=== PATIENT | male | born 1975 | race Caucasian/White ===

== ENCOUNTER 2016-11-29 10:40 | Emergency (ER) | payer OTHER ==
[2016-11-29] MEDS ORDERED: Proparacaine 0.5% Ophth Soln 15 ML Bottle EYELF ONE (11:01)
--- NOTE | 2016-11-29 11:04 | EDM.PDOC ---
<Son Banuelos - Last Filed: 11/29/16 11:23> ED HPI GENERAL MEDICAL PROBLEM - General Chief Complaint: Eye Problems Stated Complaint: EYE HURTS Time Seen by Provider: 11/29/16 11:02 Source of Information: Reports: Patient History Limitations: Reports: No Limitations - History of Present Illness INITIAL COMMENTS - FREE TEXT/NARRATIVE: History of present illness: [41-year-old male presenting with complaints of left eye pain. Patient was weaned blacking his yard yesterday and felt something fly up into his eye despite wearing protective glasses. Patient says he felt like it was moving around and now his eye is quite painful. Patient's left eye noted to be erythematous and inflamed.] Review of systems: As per history of present illness and below otherwise all systems reviewed and negative. Past medical history: As per history of present illness and as reviewed below otherwise noncontributory. Surgical history: As per history of present illness and as reviewed below otherwise noncontributory. Social history: No reported history of drug or alcohol abuse. Family history: As per history of present illness and as reviewed below otherwise noncontributory. Physical exam: HEENT: Atraumatic, normocephalic, pupils reactive, negative for conjunctival pallor or scleral icterus, left eye with significant erythema and irritation, mucous membranes moist, throat clear, neck supple, nontender, trachea midline. Lungs: Clear to auscultation, breath sounds equal bilaterally, chest nontender. Heart: S1S2, regular, negative for clicks, rubs, or JVD. Abdomen: Soft, nondistended, nontender. Negative for masses or hepatosplenomegaly. Negative for costovertebral tenderness. Pelvis: Stable nontender. Genitourinary: Deferred. Rectal: Deferred. Extremities: Atraumatic, negative for cords or calf pain. Neurovascular unremarkable. Neuro: Awake, alert, oriented. Cranial nerves II through XII unremarkable. Cerebellum unremarkable. Motor and sensory unremarkable throughout. Exam nonfocal. Procedure note: Proparacaine instilled into left eye with good anesthesia achieved floor seen staining used to visualize 3 abrasions on the conjunctiva region and to on the iris at the 2:00 and the 5:00 region of the eye. Patient tolerated procedure well with minimal discomfort. Diagnostics: [Wood's lamp, floor seen staining] Therapeutics: [Proparacaine] Impression: [#1 Corneal abrasion] Plan: [eye antibiotics drops, follow-up with PCP] Definitive disposition and diagnosis as appropriate pending reevaluation and review of above. Left Eye Pain Score (Numeric/FACES): 4 - Related Data Allergies Allergy/AdvReac Type Severity Reaction Status Date / Time penicillin G Allergy Airway Verified 11/29/16 10:49 Tightness Home Meds: Home Meds Tobramycin 0.3% [Tobramycin 0.3% Ophth Soln] 4 drop EYELF Q4H #1 bottle [Rx] Past Medical History HEENT History: Reports: None Cardiovascular History: Reports: Hypertension Respiratory History: Reports: None Gastrointestinal History: Reports: None Genitourinary History: Reports: None Musculoskeletal History: Reports: None Neurological History: Reports: Seizure Psychiatric History: Reports: None Endocrine/Metabolic History: Reports: None Hematologic History: Reports: None Immunologic History: Reports: None Oncologic (Cancer) History: Reports: None Dermatologic History: Reports: None - Infectious Disease History Infectious Disease History: Reports: Chicken Pox - Past Surgical History Head Surgeries/Procedures: Reports: None GI Surgical History: Reports: Hernia Repair/Other Social & Family History - Family History Family Medical History: Noncontributory - Tobacco Use Smoking Status *Q: Current Every Day Smoker Years of Tobacco use: 26 Packs/Tins Daily: 0.5 - Caffeine Use Caffeine Use: Reports: Coffee, Soda, Tea - Recreational Drug Use Recreational Drug Use: No ED ROS GENERAL - Review of Systems Review Of Systems: See Below (See history of present illness) ED EXAM GENERAL W FULL EYE - Physical Exam Exam: See Below (History of present illness) Course - Vital Signs Last Recorded V/S: Last Vital Signs Temp 35.9 C 11/29/16 10:51 Pulse 73 11/29/16 10:51 Resp 18 11/29/16 10:51 BP 135/86 11/29/16 10:51 Pulse Ox 100 11/29/16 10:51 - Orders/Labs/Meds Meds: Medications Discontinued Medications Generic Name Dose Route Start Last Admin Trade Name Freq PRN Reason Stop Dose Admin Proparacaine HCl 1 ml 11/29/16 11:01 11/29/16 11:06 Proparacaine 0.5% Ophth Soln EYELF 11/29/16 11:02 1 drop ONETIME ONE Administration Departure - Departure Time of Disposition: 11:26 Disposition: Home, Self-Care 01 Condition: Good Clinical Impression: Corneal abrasion - Discharge Information Prescriptions: Tobramycin 0.3% [Tobramycin 0.3% Ophth Soln] 4 drop EYELF Q4H #1 bottle Instructions: Corneal Abrasion, [id number] Referrals: PCP,None [Primary Care Provider] - Forms: ED Department Discharge Additional Instructions: The following information is given to patients seen in the emergency department who are being discharged to home. This information is to outline your options for follow-up care. We provide all patients seen in our emergency department with a follow-up referral. The need for follow-up, as well as the timing and circumstances, are variable depending upon the specifics of your emergency department visit. If you don't have a primary care physician on staff, we will provide you with a referral. We always advise you to contact your personal physician following an emergency department visit to inform them of the circumstance of the visit and for follow-up with them and/or the need for any referrals to a consulting specialist. The emergency department will also refer you to a specialist when appropriate. This referral assures that you have the opportunity for follow-up care with a specialist. All of these measure are taken in an effort to provide you with optimal care, which includes your follow-up. Under all circumstances we always encourage you to contact your private physician who remains a resource for coordinating your care. When calling for follow-up care, please make the office aware that this follow-up is from your recent emergency room visit. If for any reason you are refused follow-up, please contact the [facility] Emergency Department at and asked to speak to the emergency department charge nurse. Take eyedrops as directed Follow-up with PCP in 1-2 days Turned ED as needed as discussed [facility] [address] [place] [id number] <Jaylin Saini - Last Filed: 11/29/16 14:31> ED HPI GENERAL MEDICAL PROBLEM - History of Present Illness INITIAL COMMENTS - FREE TEXT/NARRATIVE: Please correct the history of present illness to state that the patient was working in his yard with a [employer]
[2016-11-29 19:29] VITALS: BP 123/85
== END 2016-11-29 11:38 | disposition home or self-care (01) ==
LOC: MW.ED 10:40
DX: S05.02XA Injury of conjunctiva and corneal abrasion without foreign body, left eye, initial encounter (principal); I10 Essential (primary) hypertension; F17.210 Nicotine dependence, cigarettes, uncomplicated; Z88.0 Allergy status to penicillin; X58.XXXA Exposure to other specified factors, initial encounter
CPT/HCPCS: 99283

== ENCOUNTER 2016-12-10 11:58 | Inpatient (IN) | payer OTHER, MEDICAID ==
[2016-12-10] MEDS ORDERED: Morphine 2 MG/ML Syringe IVPUSH ONE (12:11)
[2016-12-10] MEDS ORDERED: Sodium Chloride 0.9% 2.5 ML Syringe FLUSH PRN (12:11)
[2016-12-10] MEDS ORDERED: Sodium Chloride 0.9% 10 ML Syringe FLUSH PRN (12:11)
[2016-12-10] MEDS ORDERED: Ondansetron 4 MG/2 ML SDV IVPUSH ONE (12:11)
--- NOTE | 2016-12-10 12:15 | EDM.PDOC ---
ED HPI GENERAL MEDICAL PROBLEM - General Chief Complaint: Lower Extremity Injury/Pain Stated Complaint: LT FOOT INJURY Time Seen by Provider: 12/10/16 12:11 Source of Information: Reports: Patient History Limitations: Reports: No Limitations - History of Present Illness INITIAL COMMENTS - FREE TEXT/NARRATIVE: HISTORY AND PHYSICAL: 41-year-old male presenting with injury to his left foot History of Present Illness: []'s previous to coming to the ED patient had been cleaning a big tank with water. Take held mineral oil with guava beans. Patient hit his foot with the high-pressure water tank causing a laceration and edema. Patient has not eaten today, he has had a cup of coffee about 8 or 9:00 this morning Patient is on Keppra last known seizure activity was 2 years ago. Patient has hypertension Review of Systems: As per history of present illness and below otherwise all systems reviewed and negative. Past medical history: As per history of present illness and as reviewed below otherwise noncontributory. Surgical history: As per history of present illness and as reviewed below otherwise noncontributory. Social history: No reported history of drug or alcohol abuse. Family history: As per history of present illness and as reviewed below otherwise noncontributory. Physical exam: Alert and oriented male. Nontoxic in appearance answering questions in full sentences without shortness of breath. HEENT: Atraumatic, normocehpalic, pupils reactive, negative for conjunctival pallor or scleral icterus, mucous membranes moist, throat clear, neck supple, nontender, trachea midline. Lungs: Clear to auscultation, breath sounds equal bilaterally, chest non tender. Heart: S1S2, regular, negative for clicks, rubs, or JVD. Abdomen: Soft, nondistended, nontender. Negative for masses or hepatossplenmegaly. Negative for costovertebral tenderness. Pelvis: Stable nontender. Genitourinary: Deferred. Rectal: Deferred Extremities: Atraumatic, negative for cords or calf pain. Neurovascular unremarkable. Neuro: Awake, alert, oriented. Cranial nerves II through XII unremarkable. Cerebellum unremarkable. Motor and sensory unremarkable throughout. Exam nonfocal. Moderate subcutaneous gas in his tissue. Have notified Dr. Bea Rueda of patient and she will come to examine him. [id number] Dr. Tolentino is here to see the patient, wishes to refer for observation Diagnostics: [Foot x-ray] Therapeutics: [IV access Zofran Morphine] Impression: [Foot injury Laceration] Plan: [Refer for observation] Definitive disposition and diagnosis as appropriate pending reevaluation and review of above. Onset: Today, Sudden left foot and ankle Pain Score (Numeric/FACES): 8 - Related Data Allergies Allergy/AdvReac Type Severity Reaction Status Date / Time penicillin G Allergy Airway Verified 12/10/16 12:06 Tightness Home Meds: Home Meds Tobramycin 0.3% [Tobramycin 0.3% Ophth Soln] 4 drop EYELF Q4H #1 bottle [Rx] Amitriptyline [Elavil] 12/10/16 [History] Metoprolol Succinate 12/10/16 [History] Omeprazole 12/10/16 [History] amLODIPine [Norvasc] 12/10/16 [History] cloNIDine [Catapres] 12/10/16 [History] levETIRAcetam [Keppra] 12/10/16 [History] Past Medical History HEENT History: Reports: None Cardiovascular History: Reports: Hypertension Respiratory History: Reports: None Gastrointestinal History: Reports: None Genitourinary History: Reports: None Musculoskeletal History: Reports: None Neurological History: Reports: Seizure Psychiatric History: Reports: None Endocrine/Metabolic History: Reports: None Hematologic History: Reports: None Immunologic History: Reports: None Oncologic (Cancer) History: Reports: None Dermatologic History: Reports: None - Infectious Disease History Infectious Disease History: Reports: Chicken Pox - Past Surgical History Head Surgeries/Procedures: Reports: None GI Surgical History: Reports: Hernia Repair/Other Social & Family History - Family History Family Medical History: Noncontributory - Tobacco Use Smoking Status *Q: Current Every Day Smoker Years of Tobacco use: 26 Packs/Tins Daily: 0.5 - Caffeine Use Caffeine Use: Reports: Coffee, Soda, Tea - Recreational Drug Use Recreational Drug Use: No Review of Systems - Review of Systems Review Of Systems: ROS reveals no pertinent complaints other than HPI. ED EXAM, GENERAL - Physical Exam Exam: See Below (See dictation) Course - Vital Signs Last Recorded V/S: Last Vital Signs Temp 36.6 C 12/10/16 12:07 Pulse 73 12/10/16 12:53 Resp 16 12/10/16 12:53 BP 119/80 12/10/16 12:53 Pulse Ox 97 12/10/16 12:53 - Orders/Labs/Meds Orders: Active Orders 24 hr Category Date Time Status Patient Status [ADT] Stat ADT 12/10/16 13:47 Ordered Sodium Chloride 0.9% [Saline Flush] Med 12/10/16 12:11 Active 10 ml FLUSH ASDIRECTED PRN Sodium Chloride 0.9% [Saline Flush] Med 12/10/16 12:11 Active 2.5 ml FLUSH ASDIRECTED PRN Saline Lock Insert [OM.PC] Stat Oth 12/10/16 12:11 Ordered Medication Orders Sodium Chloride (Saline Flush) 10 ml FLUSH ASDIRECTED PRN PRN Reason: Keep Vein Open Sodium Chloride (Saline Flush) 2.5 ml FLUSH ASDIRECTED PRN PRN Reason: Keep Vein Open Meds: Medications Generic Name Dose Route Start Last Admin Trade Name Freq PRN Reason Stop Dose Admin Sodium Chloride 10 ml 12/10/16 12:11 Saline Flush FLUSH ASDIRECTED PRN Keep Vein Open Sodium Chloride 2.5 ml 12/10/16 12:11 Saline Flush FLUSH ASDIRECTED PRN Keep Vein Open Discontinued Medications Generic Name Dose Route Start Last Admin Trade Name Freq PRN Reason Stop Dose Admin Morphine Sulfate 2 mg 12/10/16 12:11 12/10/16 12:48 Morphine IVPUSH 12/10/16 12:12 2 mg ONETIME ONE Administration Morphine Sulfate 2 mg 12/10/16 13:21 12/10/16 13:33 Morphine IV 12/10/16 13:22 2 mg ONETIME ONE Administration Ondansetron HCl 4 mg 12/10/16 12:11 12/10/16 12:46 Zofran IVPUSH 12/10/16 12:12 4 mg ONETIME ONE Administration Departure - Departure Time of Disposition: 13:51 Disposition: Refer to Observation Condition: Good Clinical Impression: Injury of foot, left Qualifiers: Encounter type: initial encounter Qualified Code(s): S99.922A - Unspecified injury of left foot, initial encounter - Discharge Information Referrals: PCP,None [Primary Care Provider] - Forms: ED Department Discharge - My Orders Last 24 Hours: My Active Orders 12/10/16 12:11 Sodium Chloride 0.9% [Saline Flush] 10 ml FLUSH ASDIRECTED PRN Sodium Chloride 0.9% [Saline Flush] 2.5 ml FLUSH ASDIRECTED PRN Saline Lock Insert [OM.PC] Stat 12/10/16 13:47 Patient Status [ADT] Stat - Assessment/Plan Last 24 Hours: My Active Orders 12/10/16 12:11 Sodium Chloride 0.9% [Saline Flush] 10 ml FLUSH ASDIRECTED PRN Sodium Chloride 0.9% [Saline Flush] 2.5 ml FLUSH ASDIRECTED PRN Saline Lock Insert [OM.PC] Stat 12/10/16 13:47 Patient Status [ADT] Stat
--- NOTE | 2016-12-10 12:47 | CR ---
EXAMINATION: Left foot HISTORY: Pain COMPARISON: None TECHNIQUE: 2 views FINDINGS: There is a moderate amount of subcutaneous gas noted throughout the left foot extending int o the left ankle. No definite fracture or acute osseous abnormality. Bone mineralization and joint sp aces are grossly preserved. IMPRESSION: 1. Extensive subcutaneous gas noted within the left foot, most prominent around the first digit and m etatarsal, extending into the left ankle.
[2016-12-10] MEDS ORDERED: Morphine 10 MG/ML Syringe IV ONE (13:21)
--- NOTE | 2016-12-10 14:04 | PCM.HP ---
H&P History of Present Illness - General Date of Service: 12/10/16 Admit Problem/Dx: Admission Diagnosis/Problem Admission Diagnosis/Problem Injury of foot Source of Information: Patient History Limitations: Reports: No Limitations - History of Present Illness Initial Comments - Free Text/Narative: 41 y/o male who injured left foot earlier today. States he was using a shaker washer with water irrigation to clean a bin. Ran the shaker washer over his left foot with regular footwear in place and noticied immediate pain. Denies other injuries or previous injury. Presented to ER. XR obtained which shows evidence of sq air, no fracture. Tetanus booster 3 months ago. 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 Improves with: Reports: Immobilization, Rest Worsens with: Reports: Movement Associated Symptoms: Reports: No Other Symptoms left foot and ankle Pain Score (Numeric/FACES): 8 - Related Data Allergies/Adverse Reactions: Allergies Allergy/AdvReac Type Severity Reaction Status Date / Time penicillin G Allergy Airway Verified 12/10/16 12:06 Tightness Home Medications: Home Meds Tobramycin 0.3% [Tobramycin 0.3% Ophth Soln] 4 drop EYELF Q4H #1 bottle [Rx] Amitriptyline [Elavil] 12/10/16 [History] Metoprolol Succinate 12/10/16 [History] Omeprazole 12/10/16 [History] amLODIPine [Norvasc] 12/10/16 [History] cloNIDine [Catapres] 12/10/16 [History] levETIRAcetam [Keppra] 12/10/16 [History] Past Medical History HEENT History: Reports: None Cardiovascular History: Reports: Hypertension Respiratory History: Reports: None Gastrointestinal History: Reports: None Genitourinary History: Reports: None Musculoskeletal History: Reports: None Neurological History: Reports: Seizure Psychiatric History: Reports: None Endocrine/Metabolic History: Reports: None Hematologic History: Reports: None Immunologic History: Reports: None Oncologic (Cancer) History: Reports: None Dermatologic History: Reports: None - Infectious Disease History Infectious Disease History: Reports: Chicken Pox - Past Surgical History Head Surgeries/Procedures: Reports: None GI Surgical History: Reports: Hernia Repair/Other Social & Family History - Family History Family Medical History: Noncontributory - Tobacco Use Smoking Status *Q: Current Every Day Smoker Years of Tobacco use: 26 Packs/Tins Daily: 0.5 - Caffeine Use Caffeine Use: Reports: Coffee, Soda, Tea - Recreational Drug Use Recreational Drug Use: No H&P Review of Systems - Review of Systems: Review Of Systems: See Below General: Reports: No Symptoms HEENT: Reports: No Symptoms Pulmonary: Reports: No Symptoms Cardiovascular: Reports: No Symptoms Gastrointestinal: Reports: No Symptoms Genitourinary: Reports: No Symptoms Musculoskeletal: Reports: No Symptoms Skin: Reports: No Symptoms Psychiatric: Reports: No Symptoms Neurological: Reports: No Symptoms Hematologic/Lymphatic: Reports: No Symptoms Immunologic: Reports: No Symptoms Exam - Exam Exam: See Below - Vital Signs Vital Signs: Last Vital Signs Temp 97.8 F 12/10/16 12:07 Pulse 73 12/10/16 12:53 Resp 16 12/10/16 12:53 BP 119/80 12/10/16 12:53 Pulse Ox 97 12/10/16 12:53 Weight: 90.718 kg - Exam General: Alert, Oriented, 4 HEENT: Conjunctiva Clear, Hearing Intact, Nares Patent, Pupils Equal Neck: Supple, Trachea Midline Lungs: Normal Respiratory Effort Cardiovascular: Regular Rate GI/Abdominal Exam: Soft Psychiatric: Alert, Normal Affect, Normal Mood Physical Exam Comments:: Exam of left foot cavus deformity with claw toes. Exam shows ~1cm laceration over the dorsal/medial aspect of the foot. Small amount of serosanguinous drainage from wound, no active bleeding. Able to move ankle to command. Sq air noted along the medial aspect of the foot. No erythema or induration noted. Decreased sensation throughout foot. DP 2+. - Patient Data Imaging Impressions Last 24 hrs: XR of left foot shows no fracture, evidence of sq air. *Q Meaningful Use (ADM) - VTE *Q VTE Criteria *Q: - Stroke *Q Stroke Criteria *Q: - AMI *Q AMI Criteria *Q: - Problem List (1) Injury of foot, left SNOMED Code(s): 816534075 ICD Code: S99.922A - UNSPECIFIED INJURY OF LEFT FOOT, INITIAL ENCOUNTER Status: Acute Current Visit: Yes Qualifiers: Encounter type: initial encounter Qualified Code(s): S99.922A - Unspecified injury of left foot, initial encounter Problem List Initiated/Reviewed/Updated: Yes Orders Last 24hrs: Medication Orders Sodium Chloride (Saline Flush) 10 ml FLUSH ASDIRECTED PRN PRN Reason: Keep Vein Open Sodium Chloride (Saline Flush) 2.5 ml FLUSH ASDIRECTED PRN PRN Reason: Keep Vein Open Assessment/Plan Comment:: 1. admit for observation 2. saline dressing placed. Will leave wound open to drain (no closure). 3. no surgical intervention at this time. Will need close observation. Will start on broad spectrum Abx. Tetanus up to date. 4. Risks of infection and possible need for future surgical treatment discussed with patient. He agrees with plan.
[2016-12-10] MEDS ORDERED: Ondansetron 4 MG/2 ML SDV IV PRN (14:17)
[2016-12-10] MEDS ORDERED: HYDROmorphone 2 MG/ML Syringe IVPUSH PRN (14:17)
[2016-12-10] MEDS: Lactated Ringers 1,000 ML IV SCH (14:42)
[2016-12-10] MEDS: Ketorolac 30 MG/ML SDV IVPUSH SCH ×2 (14:46→20:30)
[2016-12-10] MEDS: Tobramycin 0.3% Ophth Drops 5 ML Bottle EYELF SCH ×3 (14:50→22:39)
[2016-12-10] MEDS: Piperacillin/Tazobactam 3.375 GM in Sodium Chloride 0.9% 50 ML IV SCH ×2 (15:18→20:45)
[2016-12-10] MEDS: Acetaminophen/HYDROcodone 325-5 MG Tab PO PRN (18:29)
[2016-12-10] MEDS: cloNIDine 0.1 MG Tab PO SCH (21:00)
[2016-12-10] MEDS: levETIRAcetam 500 MG Tab PO SCH (21:49)
[2016-12-10] MEDS: Amitriptyline 25 MG Tab PO SCH (21:49)
[2016-12-10] MEDS: Docusate Sodium 100 MG Cap PO SCH (21:50)
[2016-12-11] MEDS: Lactated Ringers 1,000 ML IV SCH ×2 (01:44→12:27)
[2016-12-11] MEDS: Tobramycin 0.3% Ophth Drops 5 ML Bottle EYELF SCH ×6 (01:44→21:27)
[2016-12-11] MEDS: Ketorolac 30 MG/ML SDV IVPUSH SCH ×4 (02:38→21:07)
[2016-12-11] MEDS: Piperacillin/Tazobactam 3.375 GM in Sodium Chloride 0.9% 50 ML IV SCH ×4 (02:40→21:10)
[2016-12-11] MEDS: Acetaminophen/HYDROcodone 325-5 MG Tab PO PRN ×2 (06:24→21:38)
[2016-12-11] MEDS: levETIRAcetam 500 MG Tab PO SCH ×2 (08:24→21:11)
[2016-12-11] MEDS: Docusate Sodium 100 MG Cap PO SCH ×2 (08:25→21:11)
[2016-12-11] MEDS: amLODIPine 5 MG Tab PO SCH (08:25)
[2016-12-11] MEDS: cloNIDine 0.1 MG Tab PO SCH ×2 (08:25→21:13)
[2016-12-11] MEDS: Omeprazole 20 MG Cap.CR PO SCH (08:26)
--- NOTE | 2016-12-11 08:54 | PCM.PN ---
<Preeti Anna - Last Filed: 12/11/16 10:11> - General Info Date of Service: 12/11/16 Functional Status: Reports: Pain Controlled, Tolerating Diet, Urinating - Review of Systems General: Reports: No Symptoms Pulmonary: Reports: No Symptoms Cardiovascular: Reports: No Symptoms Gastrointestinal: Reports: No Symptoms Genitourinary: Reports: No Symptoms Musculoskeletal: Reports: Foot Pain, Joint Swelling Neurological: Reports: No Symptoms Psychiatric: Reports: No Symptoms - Patient Data Vitals - Most Recent: Last Vital Signs Temp 37.3 C 12/11/16 08:00 Pulse 81 12/11/16 08:00 Resp 19 12/11/16 08:00 BP 127/73 12/11/16 08:25 Pulse Ox 96 12/11/16 08:00 Weight - Most Recent: 86.8 kg I&O - Last 24 Hours: Intake & Output 12/10/16 12/11/16 12/11/16 22:59 06:59 14:59 Intake Total 600 3250 Output Total 800 Balance 600 2450 Lab Results Last 24 Hours: Laboratory Results - last 24 hr 12/11/16 12/11/16 Range/Units 05:15 05:15 WBC 11.85 H (4.0-11.0) K/uL RBC 4.33 L (4.50-5.90) M/uL Hgb 12.0 L (13.0-17.0) g/dL Hct 35.9 L (38.0-50.0) % MCV 82.9 (80.0-98.0) fL MCH 27.7 (27.0-32.0) pg MCHC 33.4 (31.0-37.0) g/dL RDW Std Deviation 42.1 (28.0-62.0) fl RDW Coeff of Jasmina 14 (11.0-15.0) % Plt Count 213 (150-400) K/uL MPV 9.30 (7.40-12.00) fL Neut % (Auto) 72.7 (48.0-80.0) % Lymph % (Auto) 18.9 (16.0-40.0) % Long % (Auto) 5.7 (0.0-15.0) % Eos % (Auto) 2.5 (0.0-7.0) % Baso % (Auto) 0.2 (0.0-1.5) % Neut # (Auto) 8.6 H (1.4-5.7) K/uL Lymph # (Auto) 2.2 (0.6-2.4) K/uL Long # (Auto) 0.7 (0.0-0.8) K/uL Eos # (Auto) 0.3 (0.0-0.7) K/uL Baso # (Auto) 0.0 (0.0-0.1) K/uL Nucleated RBC % 0.0 /100WBC Nucleated RBCs # 0 K/uL Sodium 138 (136-146) mmol/L Potassium 3.8 (3.5-5.1) mmol/L Chloride 105 (98-110) mmol/L Carbon Dioxide 26 (21-31) mmol/L BUN 20 (6.0-23.0) mg/dL Creatinine 1.5 (0.6-1.5) mg/dL Est Cr Clr Drug Dosing 76.68 mL/min Estimated GFR (MDRD) 51.3 ml/min Glucose 124 H (60-110) mg/dL Calcium 8.7 L (8.8-10.8) mg/dL Med Orders - Current: Current Medications Hydrocodone Bitart/Acetaminophen ([place] 325-5 Mg) 1 - 2 tab PO Q4H PRN PRN Reason: Pain Last Admin: 12/11/16 06:24 Dose: 1 tab Amitriptyline HCl (Elavil) 75 mg PO BEDTIME [facility] Last Admin: 12/10/16 21:49 Dose: 75 mg Amlodipine Besylate (Norvasc) 10 mg PO DAILY [facility] Last Admin: 12/11/16 08:25 Dose: 10 mg Clonidine HCl (Catapres) 0.1 mg PO BID [facility] Last Admin: 12/11/16 08:25 Dose: 0.1 mg Docusate Sodium (Colace) 100 mg PO BID [facility] Last Admin: 12/11/16 08:25 Dose: 100 mg Hydromorphone HCl (Dilaudid) 0.5 - 1 mg IVPUSH Q3H PRN PRN Reason: Pain Lactated Ringer's (Ringers, Lactated) 1,000 mls @ 125 mls/hr IV ASDIRECTED [facility] Last Admin: 12/11/16 01:44 Dose: 125 mls/hr Piperacillin Sod/Tazobactam (Sod 3.375 gm/ Sodium Chloride) 50 mls @ 100 mls/ hr IV Q6H [facility] Last Admin: 12/11/16 08:29 Dose: 100 mls/hr Vancomycin HCl 1,500 mg/ (Sodium Chloride) mls @ 333.333 mls/hr IV Q12H [facility] Last Admin: 12/11/16 03:15 Dose: 333.3 mls/hr Ketorolac Tromethamine (Toradol) 30 mg IVPUSH Q6H [facility] Last Admin: 12/11/16 08:26 Dose: 30 mg Levetiracetam (Keppra) 1,000 mg PO BID [facility] Last Admin: 12/11/16 08:24 Dose: 1,000 mg Omeprazole (Omeprazole) 40 mg PO DAILY [facility] Last Admin: 12/11/16 08:26 Dose: 40 mg Ondansetron HCl (Zofran) 4 mg IV Q8HR PRN PRN Reason: NAUSEA/VOMITING Sodium Chloride (Saline Flush) 10 ml FLUSH ASDIRECTED PRN PRN Reason: Keep Vein Open Sodium Chloride (Saline Flush) 2.5 ml FLUSH ASDIRECTED PRN PRN Reason: Keep Vein Open Tobramycin (Tobramycin 0.3% [facility]) 0 ml EYELF Q4H [facility] Last Admin: 12/11/16 06:24 Dose: 1 applic Vancomycin HCl (Pharmacy To Dose - Vancomycin) 1 dose .XX ASDIRECTED [facility] Discontinued Medications Morphine Sulfate (Morphine) 2 mg IVPUSH ONETIME ONE Stop: 12/10/16 12:12 Last Admin: 12/10/16 12:48 Dose: 2 mg Morphine Sulfate (Morphine) 2 mg IV ONETIME ONE Stop: 12/10/16 13:22 Last Admin: 12/10/16 13:33 Dose: 2 mg Ondansetron HCl (Zofran) 4 mg IVPUSH ONETIME ONE Stop: 12/10/16 12:12 Last Admin: 12/10/16 12:46 Dose: 4 mg - Exam General: Alert, Oriented HEENT: Pupils Equal, Pupils Reactive Neck: Trachea Midline Lungs: Normal Respiratory Effort Cardiovascular: Regular Rate Extremities: Other (Left anterior tibialis, extensor hallucis longus and gastrocnemius strength +5/5 bilaterally. Sensation intact. Dorsalis pedis and posterior tibial pulses +2 bilaterally. There is diffuse swelling of the dorsum of left foot. There is a 1 cm linear wound over the dorsum/medial aspect of the foot. This is not actively draining today. The dressing was changed today, dressing was soiled when removed. There is no surrounding erythema or induration. There is a 2 cm circular blister over the dorsal aspect of the foot. ) Wound/Incisions: Dressing Dry and Intact (Dressing changed this AM.) Neurological: No New Focal Deficit Psy/Mental Status: Alert, Normal Affect, Normal Mood - Problem List Review Problem List Initiated/Reviewed/Updated: Yes - Assessment Assessment:: Patient awake in bed this AM. Pain well controlled. Tolerating diet. No complaints today. - Plan Plan:: Continue IV abx. Continue pain management. Encourage ROM of left ankle. If wound and labs continue to improve, will switch to PO abx. Probable D/C home tomorrow. <Bea Rueda - Last Filed: 12/11/16 17:55> - Patient Data Vitals - Most Recent: Last Vital Signs Temp 98.8 F 12/11/16 16:00 Pulse 71 12/11/16 16:00 Resp 22 H 12/11/16 16:00 BP 114/73 12/11/16 16:00 Pulse Ox 92 L 12/11/16 16:00 I&O - Last 24 Hours: Intake & Output 12/11/16 12/11/16 12/11/16 06:59 14:59 22:59 Intake Total 3250 50 1849 Output Total 800 600 Balance 2450 50 1249 Lab Results Last 24 Hours: Laboratory Results - last 24 hr 12/11/16 12/11/16 Range/Units 05:15 05:15 WBC 11.85 H (4.0-11.0) K/uL RBC 4.33 L (4.50-5.90) M/uL Hgb 12.0 L (13.0-17.0) g/dL Hct 35.9 L (38.0-50.0) % MCV 82.9 (80.0-98.0) fL MCH 27.7 (27.0-32.0) pg MCHC 33.4 (31.0-37.0) g/dL RDW Std Deviation 42.1 (28.0-62.0) fl RDW Coeff of Jasmina 14 (11.0-15.0) % Plt Count 213 (150-400) K/uL MPV 9.30 (7.40-12.00) fL Neut % (Auto) 72.7 (48.0-80.0) % Lymph % (Auto) 18.9 (16.0-40.0) % Long % (Auto) 5.7 (0.0-15.0) % Eos % (Auto) 2.5 (0.0-7.0) % Baso % (Auto) 0.2 (0.0-1.5) % Neut # (Auto) 8.6 H (1.4-5.7) K/uL Lymph # (Auto) 2.2 (0.6-2.4) K/uL Long # (Auto) 0.7 (0.0-0.8) K/uL Eos # (Auto) 0.3 (0.0-0.7) K/uL Baso # (Auto) 0.0 (0.0-0.1) K/uL Nucleated RBC % 0.0 /100WBC Nucleated RBCs # 0 K/uL Sodium 138 (136-146) mmol/L Potassium 3.8 (3.5-5.1) mmol/L Chloride 105 (98-110) mmol/L Carbon Dioxide 26 (21-31) mmol/L BUN 20 (6.0-23.0) mg/dL Creatinine 1.5 (0.6-1.5) mg/dL Est Cr Clr Drug Dosing 76.68 mL/min Estimated GFR (MDRD) 51.3 ml/min Glucose 124 H (60-110) mg/dL Calcium 8.7 L (8.8-10.8) mg/dL Med Orders - Current: Current Medications Hydrocodone Bitart/Acetaminophen ([place] 325-5 Mg) 1 - 2 tab PO Q4H PRN PRN Reason: Pain Last Admin: 12/11/16 06:24 Dose: 1 tab Amitriptyline HCl (Elavil) 75 mg PO BEDTIME [facility] Last Admin: 12/10/16 21:49 Dose: 75 mg Amlodipine Besylate (Norvasc) 10 mg PO DAILY [facility] Last Admin: 12/11/16 08:25 Dose: 10 mg Clonidine HCl (Catapres) 0.1 mg PO BID [facility] Last Admin: 12/11/16 08:25 Dose: 0.1 mg Docusate Sodium (Colace) 100 mg PO BID [facility] Last Admin: 12/11/16 08:25 Dose: 100 mg Hydromorphone HCl (Dilaudid) 0.5 - 1 mg IVPUSH Q3H PRN PRN Reason: Pain Piperacillin Sod/Tazobactam (Sod 3.375 gm/ Sodium Chloride) 50 mls @ 100 mls/ hr IV Q6H [facility] Last Admin: 12/11/16 14:18 Dose: 100 mls/hr Vancomycin HCl 1,500 mg/ (Sodium Chloride) mls @ 333.333 mls/hr IV Q12H [facility] Last Admin: 12/11/16 15:23 Dose: 333.3 mls/hr Ketorolac Tromethamine (Toradol) 30 mg IVPUSH Q6H [facility] Last Admin: 12/11/16 14:15 Dose: 30 mg Levetiracetam (Keppra) 1,000 mg PO BID [facility] Last Admin: 12/11/16 08:24 Dose: 1,000 mg Metoprolol Tartrate (Lopressor) 50 mg PO BID [facility] Last Admin: 12/11/16 09:31 Dose: 50 mg Omeprazole (Omeprazole) 40 mg PO DAILY [facility] Last Admin: 12/11/16 08:26 Dose: 40 mg Ondansetron HCl (Zofran) 4 mg IV Q8HR PRN PRN Reason: NAUSEA/VOMITING Sodium Chloride (Saline Flush) 10 ml FLUSH ASDIRECTED PRN PRN Reason: Keep Vein Open Sodium Chloride (Saline Flush) 2.5 ml FLUSH ASDIRECTED PRN PRN Reason: Keep Vein Open Tobramycin (Tobramycin 0.3% [facility]) 0 ml EYELF Q4H [facility] Last Admin: 12/11/16 14:15 Dose: 4 drop Vancomycin HCl (Pharmacy To Dose - Vancomycin) 1 dose .XX ASDIRECTED [facility] Discontinued Medications Lactated Ringer's (Ringers, Lactated) 1,000 mls @ 125 mls/hr IV ASDIRECTED [facility] Last Admin: 12/11/16 12:27 Dose: 125 mls/hr Morphine Sulfate (Morphine) 2 mg IVPUSH ONETIME ONE Stop: 12/10/16 12:12 Last Admin: 12/10/16 12:48 Dose: 2 mg Morphine Sulfate (Morphine) 2 mg IV ONETIME ONE Stop: 12/10/16 13:22 Last Admin: 12/10/16 13:33 Dose: 2 mg Ondansetron HCl (Zofran) 4 mg IVPUSH ONETIME ONE Stop: 12/10/16 12:12 Last Admin: 12/10/16 12:46 Dose: 4 mg - Problem List & Annotations (1) Injury of foot, left SNOMED Code(s): 276976918 Code(s): S99.922A - UNSPECIFIED INJURY OF LEFT FOOT, INITIAL ENCOUNTER Status: Acute Current Visit: Yes Qualifiers: Encounter type: initial encounter Qualified Code(s): S99.922A - Unspecified injury of left foot, initial encounter - My Orders Last 24 Hours: My Active Orders 12/10/16 21:00 Amitriptyline [Elavil] 75 mg PO BEDTIME Docusate Sodium [Colace] 100 mg PO BID cloNIDine [Catapres] 0.1 mg PO BID levETIRAcetam [Keppra] 1,000 mg PO BID 12/11/16 09:00 Omeprazole 40 mg PO DAILY amLODIPine [Norvasc] 10 mg PO DAILY 12/11/16 09:15 Metoprolol Tartrate [Lopressor] 50 mg PO BID 12/11/16 17:51 Sodium Chloride 0.9% [Saline Flush] 10 ml FLUSH ASDIRECTED PRN Sodium Chloride 0.9% [Saline Flush] 2.5 ml FLUSH ASDIRECTED PRN Convert IV to Saline Lock [OM.PC] Routine 12/12/16 05:11 BASIC METABOLIC PANEL,BMP [CHEM] AM 12/12/16 06:00 CBC WITH AUTO DIFF [HEME] Routine 12/12/16 15:00 VANCOMYCIN TROUGH [CHEM] Routine 12/17/16 15:00 FLU Vacc [id number] 36mos UP/PF [Fluarix Quad [id number]] 60 mcg IM ONETIME ONE - Plan Plan:: 1800 Patient seen and examined. Patient states pain well controlled. Has been OOB to bathroom. VSS, afeb Exam of left foot shows laceration to be unchanged. No erythema or induration. Swelling in foot improved. Small amount of serosanguinous drainage on dressing. Small clear fluid filled blister near laceration site. minimal pain with ankle and toe ROM. No pain with PROM. Foot compartments soft. Sensation slightly decreased throughout foot. DP 2+. WBC=11.85 1. dressing changed today 2. continue elevation 3. repeat CBC in am 4. continue Zosyn/Vanco 5. if patient continues to improve, plan to change to po antibiotics tomorrow and discharge home.
[2016-12-11] MEDS: Metoprolol Tartrate 50 MG Tab PO SCH ×2 (09:31→21:14)
[2016-12-11] MEDS ORDERED: Sodium Chloride 0.9% 10 ML Syringe FLUSH PRN (17:51)
[2016-12-11] MEDS ORDERED: Sodium Chloride 0.9% 2.5 ML Syringe FLUSH PRN (17:51)
[2016-12-11] MEDS: Amitriptyline 25 MG Tab PO SCH (21:10)
[2016-12-11] MEDS ORDERED: Acetaminophen 500 MG Tab PO PRN (22:06)
[2016-12-12] MEDS: Ketorolac 30 MG/ML SDV IVPUSH SCH ×4 (02:58→21:28)
[2016-12-12] MEDS: Piperacillin/Tazobactam 3.375 GM in Sodium Chloride 0.9% 50 ML IV SCH ×4 (02:59→20:41)
[2016-12-12] MEDS: Tobramycin 0.3% Ophth Drops 5 ML Bottle EYELF SCH ×6 (03:07→23:49)
[2016-12-12] MEDS: Metoprolol Tartrate 50 MG Tab PO SCH ×3 (08:11→22:26)
[2016-12-12] MEDS: Docusate Sodium 100 MG Cap PO SCH ×4 (08:11→22:26)
[2016-12-12] MEDS: Omeprazole 20 MG Cap.CR PO SCH (08:11)
[2016-12-12] MEDS: levETIRAcetam 500 MG Tab PO SCH ×2 (08:11→20:06)
[2016-12-12] MEDS: amLODIPine 5 MG Tab PO SCH (08:11)
[2016-12-12] MEDS: cloNIDine 0.1 MG Tab PO SCH ×2 (08:11→20:05)
--- NOTE | 2016-12-12 08:30 | PCM.PN ---
<Preeti Anna - Last Filed: 12/12/16 08:30> - General Info Date of Service: 12/12/16 Functional Status: Reports: Pain Controlled, Tolerating Diet, Ambulating, Urinating - Review of Systems General: Reports: No Symptoms Pulmonary: Reports: No Symptoms Cardiovascular: Reports: No Symptoms Gastrointestinal: Reports: No Symptoms Genitourinary: Reports: No Symptoms Musculoskeletal: Reports: Foot Pain, Joint Pain, Joint Swelling Neurological: Reports: No Symptoms Psychiatric: Reports: No Symptoms - Patient Data Vitals - Most Recent: Last Vital Signs Temp 37.0 C 12/12/16 04:00 Pulse 72 12/12/16 08:11 Resp 16 12/12/16 04:00 BP 133/85 12/12/16 08:11 Pulse Ox 94 L 12/12/16 04:00 Weight - Most Recent: 86.8 kg I&O - Last 24 Hours: Intake & Output 12/11/16 12/12/16 12/12/16 22:59 06:59 14:59 Intake Total 1899 650 Output Total 600 1030 Balance 1299 -380 Lab Results Last 24 Hours: Laboratory Results - last 24 hr 12/12/16 12/12/16 Range/Units 04:16 04:16 WBC 14.58 H (4.0-11.0) K/uL RBC 4.05 L (4.50-5.90) M/uL Hgb 11.2 L (13.0-17.0) g/dL Hct 33.6 L (38.0-50.0) % MCV 83.0 (80.0-98.0) fL MCH 27.7 (27.0-32.0) pg MCHC 33.3 (31.0-37.0) g/dL RDW Std Deviation 41.4 (28.0-62.0) fl RDW Coeff of Jasmina 14 (11.0-15.0) % Plt Count 186 (150-400) K/uL MPV 9.80 (7.40-12.00) fL Add Manual Diff YES Neutrophils % (Manual) 78 (48.0-80.0) % Lymphocytes % (Manual) 15 L (16.0-40.0) % Monocytes % (Manual) 3 (0.0-15.0) % Eosinophils % (Manual) 4 (0.0-7.0) % Nucleated RBC % 0.0 /100WBC Absolute Seg Neuts 11.4 Lymphocytes # (Manual) 2.2 Monocytes # (Manual) 0.4 Eosinophils # (Manual) 0.6 Nucleated RBCs # 0 K/uL Sodium 137 (136-146) mmol/L Potassium 4.1 (3.5-5.1) mmol/L Chloride 105 (98-110) mmol/L Carbon Dioxide 24 (21-31) mmol/L BUN 19 (6.0-23.0) mg/dL Creatinine 1.4 (0.6-1.5) mg/dL Est Cr Clr Drug Dosing 82.15 mL/min Estimated GFR (MDRD) 55.6 ml/min Glucose 105 (60-110) mg/dL Calcium 8.8 (8.8-10.8) mg/dL Med Orders - Current: Current Medications Acetaminophen (Tylenol Extra Strength) 1,000 mg PO Q6H PRN PRN Reason: fever 101.3F Hydrocodone Bitart/Acetaminophen ([place] 325-5 Mg) 1 - 2 tab PO Q4H PRN PRN Reason: Pain Last Admin: 12/11/16 21:38 Dose: 2 tab Amitriptyline HCl (Elavil) 75 mg PO BEDTIME [facility] Last Admin: 12/11/16 21:10 Dose: 75 mg Amlodipine Besylate (Norvasc) 10 mg PO DAILY [facility] Last Admin: 12/12/16 08:11 Dose: 10 mg Clonidine HCl (Catapres) 0.1 mg PO BID [facility] Last Admin: 12/12/16 08:11 Dose: 0.1 mg Docusate Sodium (Colace) 100 mg PO BID [facility] Last Admin: 12/12/16 08:21 Dose: Not Given Hydromorphone HCl (Dilaudid) 0.5 - 1 mg IVPUSH Q3H PRN PRN Reason: Pain Piperacillin Sod/Tazobactam (Sod 3.375 gm/ Sodium Chloride) 50 mls @ 100 mls/ hr IV Q6H [facility] Last Admin: 12/12/16 08:12 Dose: 100 mls/hr Vancomycin HCl 1,500 mg/ (Sodium Chloride) mls @ 333.333 mls/hr IV Q12H [facility] Last Admin: 12/12/16 03:51 Dose: 333.3 mls/hr Ketorolac Tromethamine (Toradol) 30 mg IVPUSH Q6H [facility] Last Admin: 12/12/16 08:11 Dose: 30 mg Levetiracetam (Keppra) 1,000 mg PO BID [facility] Last Admin: 12/12/16 08:11 Dose: 1,000 mg Metoprolol Tartrate (Lopressor) 50 mg PO BID [facility] Last Admin: 12/12/16 08:11 Dose: 50 mg Omeprazole (Omeprazole) 40 mg PO DAILY [facility] Last Admin: 12/12/16 08:11 Dose: 40 mg Ondansetron HCl (Zofran) 4 mg IV Q8HR PRN PRN Reason: NAUSEA/VOMITING Sodium Chloride (Saline Flush) 10 ml FLUSH ASDIRECTED PRN PRN Reason: Keep Vein Open Sodium Chloride (Saline Flush) 2.5 ml FLUSH ASDIRECTED PRN PRN Reason: Keep Vein Open Sodium Chloride (Saline Flush) 10 ml FLUSH ASDIRECTED PRN PRN Reason: Keep Vein Open Sodium Chloride (Saline Flush) 2.5 ml FLUSH ASDIRECTED PRN PRN Reason: Keep Vein Open Tobramycin (Tobramycin 0.3% [facility]) 0 ml EYELF Q4H [facility] Last Admin: 12/12/16 06:37 Dose: 4 drop Vancomycin HCl (Pharmacy To Dose - Vancomycin) 1 dose .XX ASDIRECTED [facility] Discontinued Medications Lactated Ringer's (Ringers, Lactated) 1,000 mls @ 125 mls/hr IV ASDIRECTED [facility] Last Admin: 12/11/16 12:27 Dose: 125 mls/hr Morphine Sulfate (Morphine) 2 mg IVPUSH ONETIME ONE Stop: 12/10/16 12:12 Last Admin: 12/10/16 12:48 Dose: 2 mg Morphine Sulfate (Morphine) 2 mg IV ONETIME ONE Stop: 12/10/16 13:22 Last Admin: 12/10/16 13:33 Dose: 2 mg Ondansetron HCl (Zofran) 4 mg IVPUSH ONETIME ONE Stop: 12/10/16 12:12 Last Admin: 12/10/16 12:46 Dose: 4 mg - Exam General: Alert, Oriented HEENT: Pupils Equal, Pupils Reactive Neck: Trachea Midline Lungs: Normal Respiratory Effort Cardiovascular: Regular Rate Extremities: Other (Left anterior tibialis, extensor hallucis longus and gastrocnemius strength +5/5 bilaterally. Sensation intact. Dorsalis pedis and posterior tibial pulses +2 bilaterally. There is diffuse swelling of the dorsum of left foot. There is a 1 cm linear wound over the dorsum/medial aspect of the foot. This is not actively draining today. The dressing was changed today, dressing was lightly soilded when removed. There is no surrounding erythema or induration. There is a 2 cm circular blister over the dorsal aspect of the foot. ) Wound/Incisions: Dressing Dry and Intact, Drainage. No: Erythema Neurological: No New Focal Deficit Psy/Mental Status: Alert, Normal Affect, Normal Mood - Problem List Review Problem List Initiated/Reviewed/Updated: Yes - Assessment Assessment:: Patient awake in bed this AM. Pain well controlled. Tolerating diet. No complaints today. - Plan Plan:: Dressing changed this AM. Will plan to switch patient to PO abx and D/C home today. <Bea Rueda - Last Filed: 12/12/16 12:51> - Patient Data Vitals - Most Recent: Last Vital Signs Temp 98.6 F 12/12/16 08:00 Pulse 72 12/12/16 08:11 Resp 16 12/12/16 08:00 BP 133/85 12/12/16 08:11 Pulse Ox 95 12/12/16 08:00 Med Orders - Current: Current Medications Acetaminophen (Tylenol Extra Strength) 1,000 mg PO Q6H PRN PRN Reason: fever 101.3F Hydrocodone Bitart/Acetaminophen ([place] 325-5 Mg) 1 - 2 tab PO Q4H PRN PRN Reason: Pain Last Admin: 12/11/16 21:38 Dose: 2 tab Amitriptyline HCl (Elavil) 75 mg PO BEDTIME [facility] Last Admin: 12/11/16 21:10 Dose: 75 mg Amlodipine Besylate (Norvasc) 10 mg PO DAILY [facility] Last Admin: 12/12/16 08:11 Dose: 10 mg Clonidine HCl (Catapres) 0.1 mg PO BID [facility] Last Admin: 12/12/16 08:11 Dose: 0.1 mg Docusate Sodium (Colace) 100 mg PO BID [facility] Last Admin: 12/12/16 08:21 Dose: Not Given Hydromorphone HCl (Dilaudid) 0.5 - 1 mg IVPUSH Q3H PRN PRN Reason: Pain Piperacillin Sod/Tazobactam (Sod 3.375 gm/ Sodium Chloride) 50 mls @ 100 mls/ hr IV Q6H [facility] Last Admin: 12/12/16 08:12 Dose: 100 mls/hr Vancomycin HCl 1,500 mg/ (Sodium Chloride) mls @ 333.333 mls/hr IV Q12H [facility] Last Admin: 12/12/16 03:51 Dose: 333.3 mls/hr Ketorolac Tromethamine (Toradol) 30 mg IVPUSH Q6H [facility] Last Admin: 12/12/16 08:11 Dose: 30 mg Levetiracetam (Keppra) 1,000 mg PO BID [facility] Last Admin: 12/12/16 08:11 Dose: 1,000 mg Metoprolol Tartrate (Lopressor) 50 mg PO BID [facility] Last Admin: 12/12/16 08:11 Dose: 50 mg Omeprazole (Omeprazole) 40 mg PO DAILY [facility] Last Admin: 12/12/16 08:11 Dose: 40 mg Ondansetron HCl (Zofran) 4 mg IV Q8HR PRN PRN Reason: NAUSEA/VOMITING Sodium Chloride (Saline Flush) 10 ml FLUSH ASDIRECTED PRN PRN Reason: Keep Vein Open Sodium Chloride (Saline Flush) 2.5 ml FLUSH ASDIRECTED PRN PRN Reason: Keep Vein Open Sodium Chloride (Saline Flush) 10 ml FLUSH ASDIRECTED PRN PRN Reason: Keep Vein Open Sodium Chloride (Saline Flush) 2.5 ml FLUSH ASDIRECTED PRN PRN Reason: Keep Vein Open Tobramycin (Tobramycin 0.3% [facility]) 0 ml EYELF Q4H [facility] Last Admin: 12/12/16 10:41 Dose: 4 drop Vancomycin HCl (Pharmacy To Dose - Vancomycin) 1 dose .XX ASDIRECTED [facility] Discontinued Medications Lactated Ringer's (Ringers, Lactated) 1,000 mls @ 125 mls/hr IV ASDIRECTED [facility] Last Admin: 12/11/16 12:27 Dose: 125 mls/hr Morphine Sulfate (Morphine) 2 mg IVPUSH ONETIME ONE Stop: 12/10/16 12:12 Last Admin: 12/10/16 12:48 Dose: 2 mg Morphine Sulfate (Morphine) 2 mg IV ONETIME ONE Stop: 12/10/16 13:22 Last Admin: 12/10/16 13:33 Dose: 2 mg Ondansetron HCl (Zofran) 4 mg IVPUSH ONETIME ONE Stop: 12/10/16 12:12 Last Admin: 12/10/16 12:46 Dose: 4 mg - Problem List & Annotations (1) Injury of foot, left SNOMED Code(s): 388019315 Code(s): S99.922A - UNSPECIFIED INJURY OF LEFT FOOT, INITIAL ENCOUNTER Status: Acute Current Visit: Yes Qualifiers: Encounter type: initial encounter Qualified Code(s): S99.922A - Unspecified injury of left foot, initial encounter - Plan Plan:: 1245 Patient seen and examined at 0830. Doing well. No new complaints. Did have fever overnight. IS encouraged. Patient denies cough, SOB, CP, dysuria. WBC remains elevated today at 14,000, up from 11,000. States he has h/o elevated labs. We will obtain clinic records from [place] to determine what this means. Foot examined earlier today. Drainage decreased, no evidence of infection. Will continue Vanco and zosyn. Will keep overnight to watch elevated WBC. May need infectious workup if WBC remains elevated. BC x 2 if fever.
[2016-12-12] MEDS: Amitriptyline 25 MG Tab PO SCH (20:05)
[2016-12-13] MEDS: Tobramycin 0.3% Ophth Drops 5 ML Bottle EYELF SCH ×3 (02:14→10:35)
[2016-12-13] MEDS: Ketorolac 30 MG/ML SDV IVPUSH SCH ×2 (02:16→08:08)
[2016-12-13] MEDS: Piperacillin/Tazobactam 3.375 GM in Sodium Chloride 0.9% 50 ML IV SCH ×2 (02:21→08:09)
[2016-12-13] MEDS: Omeprazole 20 MG Cap.CR PO SCH (09:00)
[2016-12-13] MEDS: Docusate Sodium 100 MG Cap PO SCH (09:03)
[2016-12-13] MEDS: Metoprolol Tartrate 50 MG Tab PO SCH (09:04)
[2016-12-13] MEDS: amLODIPine 5 MG Tab PO SCH (09:09)
[2016-12-13] MEDS: cloNIDine 0.1 MG Tab PO SCH (09:09)
[2016-12-13] MEDS: levETIRAcetam 500 MG Tab PO SCH (09:10)
--- NOTE | 2016-12-13 09:15 | PCM.PN ---
<Preeti Anna - Last Filed: 12/13/16 09:28> - General Info Date of Service: 12/13/16 Functional Status: Reports: Pain Controlled, Tolerating Diet, Ambulating, Urinating - Review of Systems General: Reports: No Symptoms Pulmonary: Reports: No Symptoms Cardiovascular: Reports: No Symptoms Gastrointestinal: Reports: No Symptoms Musculoskeletal: Reports: Leg Pain, Joint Swelling Neurological: Reports: No Symptoms Psychiatric: Reports: No Symptoms - Patient Data Vitals - Most Recent: Last Vital Signs Temp 36.8 C 12/13/16 08:00 Pulse 74 12/13/16 09:04 Resp 12 12/13/16 08:00 BP 132/77 12/13/16 09:09 Pulse Ox 96 12/13/16 08:00 Weight - Most Recent: 86.8 kg I&O - Last 24 Hours: Intake & Output 12/12/16 12/13/16 12/13/16 22:59 06:59 14:59 Intake Total 900 1450 Output Total 700 1025 Balance 200 425 Lab Results Last 24 Hours: Laboratory Results - last 24 hr 12/12/16 12/13/16 Range/Units 15:06 04:28 WBC 12.24 H (4.0-11.0) K/uL RBC 3.81 L (4.50-5.90) M/uL Hgb 10.7 L (13.0-17.0) g/dL Hct 31.6 L (38.0-50.0) % MCV 82.9 (80.0-98.0) fL MCH 28.1 (27.0-32.0) pg MCHC 33.9 (31.0-37.0) g/dL RDW Std Deviation 41.4 (28.0-62.0) fl RDW Coeff of Jasmina 14 (11.0-15.0) % Plt Count 186 (150-400) K/uL MPV 9.90 (7.40-12.00) fL Neut % (Auto) 69.3 (48.0-80.0) % Lymph % (Auto) 19.1 (16.0-40.0) % [place] % (Auto) 8.5 (0.0-15.0) % Eos % (Auto) 2.9 (0.0-7.0) % Baso % (Auto) 0.2 (0.0-1.5) % Neut # (Auto) 8.5 H (1.4-5.7) K/uL Lymph # (Auto) 2.3 (0.6-2.4) K/uL [place] # (Auto) 1.0 H (0.0-0.8) K/uL Eos # (Auto) 0.4 (0.0-0.7) K/uL Baso # (Auto) 0.0 (0.0-0.1) K/uL Nucleated RBC % 0.0 /100WBC Nucleated RBCs # 0 K/uL Vancomycin Trough 22.9 H (5-15) ug/mL Med Orders - Current: Current Medications Acetaminophen (Tylenol Extra Strength) 1,000 mg PO Q6H PRN PRN Reason: fever 101.3F Hydrocodone Bitart/Acetaminophen ([place] 325-5 Mg) 1 - 2 tab PO Q4H PRN PRN Reason: Pain Last Admin: 12/11/16 21:38 Dose: 2 tab Amitriptyline HCl (Elavil) 75 mg PO BEDTIME [facility] Last Admin: 12/12/16 20:05 Dose: 75 mg Amlodipine Besylate (Norvasc) 10 mg PO DAILY [facility] Last Admin: 12/13/16 09:09 Dose: 10 mg Clonidine HCl (Catapres) 0.1 mg PO BID [facility] Last Admin: 12/13/16 09:09 Dose: 0.1 mg Docusate Sodium (Colace) 100 mg PO BID [facility] Last Admin: 12/13/16 09:03 Dose: 100 mg Hydromorphone HCl (Dilaudid) 0.5 - 1 mg IVPUSH Q3H PRN PRN Reason: Pain Piperacillin Sod/Tazobactam (Sod 3.375 gm/ Sodium Chloride) 50 mls @ 100 mls/ hr IV Q6H [facility] Last Admin: 12/13/16 08:09 Dose: 100 mls/hr Vancomycin HCl 1,500 mg/ (Sodium Chloride) 500 mls @ 333.333 mls/hr IV Q18H [facility] Last Infusion: 12/12/16 23:50 Dose: Infused Ketorolac Tromethamine (Toradol) 30 mg IVPUSH Q6H [facility] Last Admin: 12/13/16 08:08 Dose: 30 mg Levetiracetam (Keppra) 1,000 mg PO BID [facility] Last Admin: 12/13/16 09:10 Dose: 1,000 mg Metoprolol Tartrate (Lopressor) 50 mg PO BID [facility] Last Admin: 12/13/16 09:04 Dose: 50 mg Omeprazole (Omeprazole) 40 mg PO DAILY [facility] Last Admin: 12/13/16 09:00 Dose: 40 mg Ondansetron HCl (Zofran) 4 mg IV Q8HR PRN PRN Reason: NAUSEA/VOMITING Sodium Chloride (Saline Flush) 10 ml FLUSH ASDIRECTED PRN PRN Reason: Keep Vein Open Sodium Chloride (Saline Flush) 2.5 ml FLUSH ASDIRECTED PRN PRN Reason: Keep Vein Open Sodium Chloride (Saline Flush) 10 ml FLUSH ASDIRECTED PRN PRN Reason: Keep Vein Open Sodium Chloride (Saline Flush) 2.5 ml FLUSH ASDIRECTED PRN PRN Reason: Keep Vein Open Tobramycin (Tobramycin 0.3% [facility]) 0 ml EYELF Q4H [facility] Last Admin: 12/13/16 06:18 Dose: 4 drop Vancomycin HCl (Pharmacy To Dose - Vancomycin) 1 dose .XX ASDIRECTED [facility] Discontinued Medications Lactated Ringer's (Ringers, Lactated) 1,000 mls @ 125 mls/hr IV ASDIRECTED [facility] Last Admin: 12/11/16 12:27 Dose: 125 mls/hr Vancomycin HCl 1,500 mg/ (Sodium Chloride) mls @ 333.333 mls/hr IV Q12H [facility] Last Admin: 12/12/16 15:57 Dose: Not Given Morphine Sulfate (Morphine) 2 mg IVPUSH ONETIME ONE Stop: 12/10/16 12:12 Last Admin: 12/10/16 12:48 Dose: 2 mg Morphine Sulfate (Morphine) 2 mg IV ONETIME ONE Stop: 12/10/16 13:22 Last Admin: 12/10/16 13:33 Dose: 2 mg Ondansetron HCl (Zofran) 4 mg IVPUSH ONETIME ONE Stop: 12/10/16 12:12 Last Admin: 12/10/16 12:46 Dose: 4 mg - Exam General: Alert, Oriented HEENT: Pupils Equal, Pupils Reactive Neck: Trachea Midline Lungs: Normal Respiratory Effort Cardiovascular: Regular Rate Extremities: Other (Left anterior tibialis, extensor hallucis longus and gastrocnemius strength +5/5 bilaterally. Sensation intact. Dorsalis pedis and posterior tibial pulses +2 bilaterally. There is diffuse swelling of the dorsum of left foot. There is a 1 cm linear wound over the dorsum/medial aspect of the foot. This is not actively draining today. The dressing was changed today, dressing was lightly soilded when removed. There is no surrounding erythema or induration. There is a 2 cm circular blister over the dorsal aspect of the foot. ) Wound/Incisions: Dressing Dry and Intact (Dressing changed this AM.) Neurological: No New Focal Deficit Psy/Mental Status: Alert, Normal Affect, Normal Mood - Problem List Review Problem List Initiated/Reviewed/Updated: Yes - Assessment Assessment:: Patient awake in bed this AM. Pain well controlled. Tolerating diet. No complaints today. Denies fever, chills, cough. - Plan Plan:: WBC decreased from 14,000 to 12,000 today. Continue IV abx and pain management. D/C home this afternoon. Will continue Levaquin 750 mg PO daily for 7 days. Followup in the ortho clinic Sunday 12/17. <Bea Rueda R - Last Filed: 12/13/16 10:25> - Patient Data Vitals - Most Recent: Last Vital Signs Temp 98.3 F 12/13/16 08:00 Pulse 74 12/13/16 09:04 Resp 12 12/13/16 08:00 BP 132/77 12/13/16 09:09 Pulse Ox 96 12/13/16 08:00 I&O - Last 24 Hours: Intake & Output 12/12/16 12/13/16 12/13/16 22:59 06:59 14:59 Intake Total 900 1450 Output Total 700 1025 Balance 200 425 Lab Results Last 24 Hours: Laboratory Results - last 24 hr 12/12/16 12/13/16 Range/Units 15:06 04:28 WBC 12.24 H (4.0-11.0) K/uL RBC 3.81 L (4.50-5.90) M/uL Hgb 10.7 L (13.0-17.0) g/dL Hct 31.6 L (38.0-50.0) % MCV 82.9 (80.0-98.0) fL MCH 28.1 (27.0-32.0) pg MCHC 33.9 (31.0-37.0) g/dL RDW Std Deviation 41.4 (28.0-62.0) fl RDW Coeff of Jasmina 14 (11.0-15.0) % Plt Count 186 (150-400) K/uL MPV 9.90 (7.40-12.00) fL Neut % (Auto) 69.3 (48.0-80.0) % Lymph % (Auto) 19.1 (16.0-40.0) % [place] % (Auto) 8.5 (0.0-15.0) % Eos % (Auto) 2.9 (0.0-7.0) % Baso % (Auto) 0.2 (0.0-1.5) % Neut # (Auto) 8.5 H (1.4-5.7) K/uL Lymph # (Auto) 2.3 (0.6-2.4) K/uL [place] # (Auto) 1.0 H (0.0-0.8) K/uL Eos # (Auto) 0.4 (0.0-0.7) K/uL Baso # (Auto) 0.0 (0.0-0.1) K/uL Nucleated RBC % 0.0 /100WBC Nucleated RBCs # 0 K/uL Vancomycin Trough 22.9 H (5-15) ug/mL Med Orders - Current: Current Medications Acetaminophen (Tylenol Extra Strength) 1,000 mg PO Q6H PRN PRN Reason: fever 101.3F Hydrocodone Bitart/Acetaminophen ([place] 325-5 Mg) 1 - 2 tab PO Q4H PRN PRN Reason: Pain Last Admin: 12/11/16 21:38 Dose: 2 tab Amitriptyline HCl (Elavil) 75 mg PO BEDTIME [facility] Last Admin: 12/12/16 20:05 Dose: 75 mg Amlodipine Besylate (Norvasc) 10 mg PO DAILY [facility] Last Admin: 12/13/16 09:09 Dose: 10 mg Clonidine HCl (Catapres) 0.1 mg PO BID [facility] Last Admin: 12/13/16 09:09 Dose: 0.1 mg Docusate Sodium (Colace) 100 mg PO BID [facility] Last Admin: 12/13/16 09:03 Dose: 100 mg Hydromorphone HCl (Dilaudid) 0.5 - 1 mg IVPUSH Q3H PRN PRN Reason: Pain Piperacillin Sod/Tazobactam (Sod 3.375 gm/ Sodium Chloride) 50 mls @ 100 mls/ hr IV Q6H [facility] Last Admin: 12/13/16 08:09 Dose: 100 mls/hr Vancomycin HCl 1,500 mg/ (Sodium Chloride) 500 mls @ 333.333 mls/hr IV Q18H [facility] Last Infusion: 12/12/16 23:50 Dose: Infused Ketorolac Tromethamine (Toradol) 30 mg IVPUSH Q6H [facility] Last Admin: 12/13/16 08:08 Dose: 30 mg Levetiracetam (Keppra) 1,000 mg PO BID [facility] Last Admin: 12/13/16 09:10 Dose: 1,000 mg Metoprolol Tartrate (Lopressor) 50 mg PO BID [facility] Last Admin: 12/13/16 09:04 Dose: 50 mg Omeprazole (Omeprazole) 40 mg PO DAILY [facility] Last Admin: 12/13/16 09:00 Dose: 40 mg Ondansetron HCl (Zofran) 4 mg IV Q8HR PRN PRN Reason: NAUSEA/VOMITING Sodium Chloride (Saline Flush) 10 ml FLUSH ASDIRECTED PRN PRN Reason: Keep Vein Open Sodium Chloride (Saline Flush) 2.5 ml FLUSH ASDIRECTED PRN PRN Reason: Keep Vein Open Sodium Chloride (Saline Flush) 10 ml FLUSH ASDIRECTED PRN PRN Reason: Keep Vein Open Sodium Chloride (Saline Flush) 2.5 ml FLUSH ASDIRECTED PRN PRN Reason: Keep Vein Open Tobramycin (Tobramycin 0.3% [facility]) 0 ml EYELF Q4H [facility] Last Admin: 12/13/16 06:18 Dose: 4 drop Vancomycin HCl (Pharmacy To Dose - Vancomycin) 1 dose .XX ASDIRECTED [facility] Discontinued Medications Lactated Ringer's (Ringers, Lactated) 1,000 mls @ 125 mls/hr IV ASDIRECTED [facility] Last Admin: 12/11/16 12:27 Dose: 125 mls/hr Vancomycin HCl 1,500 mg/ (Sodium Chloride) mls @ 333.333 mls/hr IV Q12H [facility] Last Admin: 12/12/16 15:57 Dose: Not Given Morphine Sulfate (Morphine) 2 mg IVPUSH ONETIME ONE Stop: 12/10/16 12:12 Last Admin: 12/10/16 12:48 Dose: 2 mg Morphine Sulfate (Morphine) 2 mg IV ONETIME ONE Stop: 12/10/16 13:22 Last Admin: 12/10/16 13:33 Dose: 2 mg Ondansetron HCl (Zofran) 4 mg IVPUSH ONETIME ONE Stop: 12/10/16 12:12 Last Admin: 12/10/16 12:46 Dose: 4 mg - Problem List & Annotations (1) Injury of foot, left SNOMED Code(s): 638276163 Code(s): S99.922A - UNSPECIFIED INJURY OF LEFT FOOT, INITIAL ENCOUNTER Status: Acute Current Visit: Yes Qualifiers: Encounter type: initial encounter Qualified Code(s): S99.922A - Unspecified injury of left foot, initial encounter - My Orders Last 24 Hours: My Active Orders 12/12/16 21:30 Vancomycin 1,500 mg Sodium Chloride 0.9% [Normal Saline] 500 ml IV Q18H 12/13/16 15:00 VANCOMYCIN TROUGH [CHEM] Routine - Plan Plan:: Pt seen and examined at 0800. Agree with above note. Patient doing well. Has been afebrile for >24H. WBC decreased. Pain well controlled. Exam of foot as above. Able to move ankle and toes without difficulty. DP 2+. Will plan to d/c today. PT consult prior to d/c for crutch training. F/u next week for re-eval. Instructed to return to ER if symptoms worsen over the weekend. Lilly on discharge.
[2016-12-13 11:45] VITALS: BP 124/78
[2016-12-17] MEDS ORDERED: FLU Vacc QS 2017-18 (36mos UP)/PF 60 MCG/0.5 ML Syringe IM ONE (15:00)
== END 2016-12-13 14:25 | disposition home or self-care (01) | DRG 605 ==
LOC: MW.ED 11:58 → MW.MS 13:47 → OBSVTOIN 12-12 09:14 → MW.MS 12-12 09:53
PROVIDERS: ADMIT Orthopaedic Surgery; ATTEND Orthopaedic Surgery
DX: S91.312A Laceration without foreign body, left foot, initial encounter (principal); X58.XXXA Exposure to other specified factors, initial encounter; I10 Essential (primary) hypertension; G40.909 Epilepsy, unspecified, not intractable, without status epilepticus; F17.200 Nicotine dependence, unspecified, uncomplicated; Z88.0 Allergy status to penicillin; Z79.899 Other long term (current) drug therapy
CPT/HCPCS: 36415; 73620-26-LT; 73620-LT; 80048; 80202; 85025; 96374; 96375; 99283; 99285-25; A9270-GY; J1885; J2270; J2405; J2543; J3370; J7040; J7050; J7120

== ENCOUNTER 2016-12-17 11:39 | Inpatient (IN) | payer OTHER, MEDICAID ==
[2016-12-17] MEDS ORDERED: DAPTOmycin 500 MG Vial IVPUSH SCH (12:30)
[2016-12-17] MEDS: Acetaminophen/HYDROcodone 325-5 MG Tab PO PRN ×3 (12:32→23:52)
--- NOTE | 2016-12-17 13:00 | PCM.SN ---
- Free Text/Narrative Note: See [facility] clinic note for full H&P. patient is 41 y/o male who injured L foot with a skein washer last week. Was discharged from the hospital on Levaquin. Yesterday noticed increased pain and swelling in foot, no new injury. Will admit for IV abx-Cubicin and Zosyn- and continued observation. labs on admission.
[2016-12-17] MEDS ORDERED: FLU Vacc QS 2017-18 (6mos UP)/PF 60 MCG/0.5 ML Syringe IM ONE (13:12)
[2016-12-17] MEDS ORDERED: TOBRAMYCIN 0.3% EYELF SCH (13:15)
[2016-12-17] MEDS ORDERED: Ketorolac 30 MG/ML SDV IVPUSH SCH (13:15)
[2016-12-17] MEDS: DAPTOmycin 500 MG in Sodium Chloride 0.9% 10 ML IV SCH (13:16)
[2016-12-17] MEDS: Piperacillin/Tazobactam 3.375 GM in Sodium Chloride 0.9% 50 ML IV SCH ×3 (13:24→23:41)
[2016-12-17] MEDS: Enoxaparin 40 MG/0.4 ML Syringe SUBCUT SCH (14:14)
[2016-12-17] MEDS: Lactated Ringers 1,000 ML IV SCH ×2 (15:07→23:39)
[2016-12-17] MEDS: levETIRAcetam 500 MG Tab PO SCH (20:08)
[2016-12-17] MEDS: Metoprolol Tartrate 50 MG Tab PO SCH (20:08)
[2016-12-17] MEDS: cloNIDine 0.1 MG Tab PO SCH (20:09)
[2016-12-17] MEDS: Amitriptyline 25 MG Tab PO SCH (23:41)
[2016-12-18] MEDS: Acetaminophen/HYDROcodone 325-5 MG Tab PO PRN ×3 (05:45→19:03)
[2016-12-18] MEDS: Piperacillin/Tazobactam 3.375 GM in Sodium Chloride 0.9% 50 ML IV SCH ×3 (05:46→17:33)
--- NOTE | 2016-12-18 08:09 | PCM.PN ---
<Preeti Anna - Last Filed: 12/18/16 08:04> - General Info Date of Service: 12/18/16 Functional Status: Reports: Pain Controlled, Tolerating Diet, Ambulating, Urinating - Review of Systems General: Reports: No Symptoms Pulmonary: Reports: No Symptoms Gastrointestinal: Reports: No Symptoms Genitourinary: Reports: No Symptoms Musculoskeletal: Reports: Foot Pain, Joint Swelling Neurological: Reports: No Symptoms Psychiatric: Reports: No Symptoms - Patient Data Vitals - Most Recent: Last Vital Signs Temp 37.2 C 12/18/16 04:00 Pulse 86 12/18/16 04:00 Resp 20 12/18/16 04:00 BP 133/78 12/18/16 04:00 Pulse Ox 98 12/18/16 04:00 Weight - Most Recent: 90.7 kg I&O - Last 24 Hours: Intake & Output 12/17/16 12/18/16 12/18/16 22:59 06:59 14:59 Intake Total 200 2270 Output Total 800 2600 Balance -600 -330 Lab Results Last 24 Hours: Laboratory Results - last 24 hr 12/17/16 12/17/16 12/18/16 Range/Units 12:40 12:40 04:15 WBC 15.02 H 11.32 H (4.0-11.0) K/uL RBC 4.17 L 3.89 L (4.50-5.90) M/uL Hgb 11.6 L 10.7 L (13.0-17.0) g/dL Hct 34.5 L 32.1 L (38.0-50.0) % MCV 82.7 82.5 (80.0-98.0) fL MCH 27.8 27.5 (27.0-32.0) pg MCHC 33.6 33.3 (31.0-37.0) g/dL RDW Std Deviation 41.0 40.8 (28.0-62.0) fl RDW Coeff of Jasmina 14 14 (11.0-15.0) % Plt Count 290 302 (150-400) K/uL MPV 8.60 9.20 (7.40-12.00) fL Neut % (Auto) Not Reportable Lymph % (Auto) Not Reportable [place] % (Auto) Not Reportable Eos % (Auto) Not Reportable Baso % (Auto) Not Reportable Neut # (Auto) Not Reportable Lymph # (Auto) Not Reportable [place] # (Auto) Not Reportable Eos # (Auto) Not Reportable Baso # (Auto) Not Reportable Add Manual Diff YES YES Neutrophils % (Manual) 81 H 77 (48.0-80.0) % Band Neutrophils % 3 % Lymphocytes % (Manual) 10 L 16 (16.0-40.0) % Monocytes % (Manual) 3 3 (0.0-15.0) % Eosinophils % (Manual) 1 3 (0.0-7.0) % Basophils % (Manual) 2 H 1 (0.0-1.5) % Nucleated RBC % 0.0 0.0 /100WBC Absolute Seg Neuts 12.2 8.7 Band Neutrophils # 0.5 Lymphocytes # (Manual) 1.5 1.8 Monocytes # (Manual) 0.5 0.3 Eosinophils # (Manual) 0.2 0.3 Basophils # (Manual) 0 0 Nucleated RBCs # 0 0 K/uL ESR 80 H (0-14) mm/hr Sodium 138 (136-146) mmol/L Potassium 4.2 (3.5-5.1) mmol/L Chloride 105 (98-110) mmol/L Carbon Dioxide 23 (21-31) mmol/L BUN 18 (6.0-23.0) mg/dL Creatinine 1.8 H (0.6-1.5) mg/dL Est Cr Clr Drug Dosing 63.90 mL/min Estimated GFR (MDRD) 41.6 ml/min Glucose 94 (60-110) mg/dL Calcium 9.8 (8.8-10.8) mg/dL C-Reactive Protein 28.35 H (0.0-0.5) mg/dL 12/18/16 Range/Units 04:15 WBC (4.0-11.0) K/uL RBC (4.50-5.90) M/uL Hgb (13.0-17.0) g/dL Hct (38.0-50.0) % MCV (80.0-98.0) fL MCH (27.0-32.0) pg MCHC (31.0-37.0) g/dL RDW Std Deviation (28.0-62.0) fl RDW Coeff of Jasmina (11.0-15.0) % Plt Count (150-400) K/uL MPV (7.40-12.00) fL Neut % (Auto) Lymph % (Auto) [place] % (Auto) Eos % (Auto) Baso % (Auto) Neut # (Auto) Lymph # (Auto) [place] # (Auto) Eos # (Auto) Baso # (Auto) Add Manual Diff Neutrophils % (Manual) (48.0-80.0) % Band Neutrophils % % Lymphocytes % (Manual) (16.0-40.0) % Monocytes % (Manual) (0.0-15.0) % Eosinophils % (Manual) (0.0-7.0) % Basophils % (Manual) (0.0-1.5) % Nucleated RBC % /100WBC Absolute Seg Neuts Band Neutrophils # Lymphocytes # (Manual) Monocytes # (Manual) Eosinophils # (Manual) Basophils # (Manual) Nucleated RBCs # K/uL ESR (0-14) mm/hr Sodium 139 (136-146) mmol/L Potassium 4.2 (3.5-5.1) mmol/L Chloride 107 (98-110) mmol/L Carbon Dioxide 22 (21-31) mmol/L BUN 21 (6.0-23.0) mg/dL Creatinine 1.9 H (0.6-1.5) mg/dL Est Cr Clr Drug Dosing 60.53 mL/min Estimated GFR (MDRD) 39.1 ml/min Glucose 121 H (60-110) mg/dL Calcium 9.0 (8.8-10.8) mg/dL C-Reactive Protein (0.0-0.5) mg/dL Med Orders - Current: Current Medications Hydrocodone Bitart/Acetaminophen ([place] 325-5 Mg) 1 - 2 tab PO Q4H PRN PRN Reason: Pain Last Admin: 12/18/16 05:45 Dose: 2 tab Amitriptyline HCl (Elavil) 75 mg PO BEDTIME [facility] Last Admin: 12/17/16 23:41 Dose: 75 mg Amlodipine Besylate (Norvasc) 5 mg PO DAILY [facility] Ascorbic Acid (Vitamin C) 500 mg PO DAILY [facility] Clonidine HCl (Catapres) 0.1 mg PO BID [facility] Last Admin: 12/17/16 20:09 Dose: 0.1 mg Cyanocobalamin (Vitamin B12) 2,500 mcg PO DAILY [facility] Enoxaparin Sodium (Lovenox) 40 mg SUBCUT Q24H [facility] Last Admin: 12/17/16 14:14 Dose: 40 mg Daptomycin 500 mg/ Sodium (Chloride) 10 mls @ 200 mls/hr IV Q24H [facility] Last Admin: 12/17/16 13:16 Dose: 200 mls/hr Piperacillin Sod/Tazobactam (Sod 3.375 gm/ Sodium Chloride) 50 mls @ 100 mls/ hr IV Q6H [facility] Last Admin: 12/18/16 05:46 Dose: 100 mls/hr Lactated Ringer's (Ringers, Lactated) 1,000 mls @ 125 mls/hr IV ASDIRECTED [facility] Last Admin: 12/17/16 23:39 Dose: 125 mls/hr Levetiracetam (Keppra) 1,000 mg PO BID [facility] Last Admin: 12/17/16 20:08 Dose: 1,000 mg Metoprolol Tartrate (Lopressor) 50 mg PO BID [facility] Last Admin: 12/17/16 20:08 Dose: 50 mg Ferrous Gluconate [ (Iron] 27 Mg) 1 each PO DAILY [facility] Potassium Gluconate (90 Mg) 1 each PO DAILY [facility] Discontinued Medications Daptomycin (Cubicin) 500 mg IVPUSH Q24H [facility] Ketorolac Tromethamine (Toradol) 30 mg IVPUSH Q6H [facility] Last Admin: 12/17/16 14:13 Dose: 30 mg - Exam General: Alert, Oriented HEENT: Pupils Equal, Pupils Reactive Neck: Trachea Midline Lungs: Normal Respiratory Effort Cardiovascular: Regular Rate Extremities: Other (Diffuse swelling of the dorsum of the left foot extending proximally to the ankle. Erythema improving. Area of debridement is dry and not draining today. He does have approximately 20 degrees of active ankle ROM. Dorsalis pedis and posterior tibial pulses +2 bilaterally. Dressing changed this AM.) Neurological: No New Focal Deficit Psy/Mental Status: Alert, Normal Affect, Normal Mood - Problem List Review Problem List Initiated/Reviewed/Updated: Yes - My Orders Last 24 Hours: My Active Orders 12/17/16 12:15 Activity as Tolerated [RC] .Routine Neurovascular Check [RC] Q2HR Notify Provider Vital Signs [RC] ASDIRECTED Vital Signs [RC] Q4H Acetaminophen/HYDROcodone [[place]ulander 325-5 MG] 1 - 2 tab PO Q4H PRN Obtain Home Medication List [OM.PC] Routine 12/17/16 12:30 DAPTOmycin [Cubicin] 500 mg Sodium Chloride 0.9% [Normal Saline] 10 ml IV Q24H Piperacillin/Tazobactam [Piperacil-Tazobact] 3.375 gm Sodium Chloride 0.9% [ Normal Saline] 50 ml IV Q6H 12/17/16 13:03 Dressing Change [Wound Care] [RC] BID 12/17/16 13:28 Admission Status [Patient Status] [ADT] Routine - Assessment Assessment:: Patient awake in bed this AM. Pain controlled overnight. Tolerating diet. Ambulating. No complaints today. - Plan Plan:: Continue IV abx. Continue pain management. Continue wet to dry dressing changes BID. <Bea Rueda R - Last Filed: 12/18/16 13:36> - Patient Data Vitals - Most Recent: Last Vital Signs Temp 98 F 12/18/16 11:47 Pulse 67 12/18/16 11:47 Resp 17 12/18/16 11:47 BP 122/70 12/18/16 11:47 Pulse Ox 95 12/18/16 11:47 I&O - Last 24 Hours: Intake & Output 12/17/16 12/18/16 12/18/16 22:59 06:59 14:59 Intake Total 200 2270 1480 Output Total 800 2600 Balance -600 -330 1480 Lab Results Last 24 Hours: Laboratory Results - last 24 hr 12/17/16 12/18/16 12/18/16 Range/Units 12:40 04:15 04:15 WBC 15.02 H 11.32 H (4.0-11.0) K/uL RBC 4.17 L 3.89 L (4.50-5.90) M/uL Hgb 11.6 L 10.7 L (13.0-17.0) g/dL Hct 34.5 L 32.1 L (38.0-50.0) % MCV 82.7 82.5 (80.0-98.0) fL MCH 27.8 27.5 (27.0-32.0) pg MCHC 33.6 33.3 (31.0-37.0) g/dL RDW Std Deviation 41.0 40.8 (28.0-62.0) fl RDW Coeff of Jasmina 14 14 (11.0-15.0) % Plt Count 290 302 (150-400) K/uL MPV 8.60 9.20 (7.40-12.00) fL Neut % (Auto) Not Reportable Lymph % (Auto) Not Reportable [place] % (Auto) Not Reportable Eos % (Auto) Not Reportable Baso % (Auto) Not Reportable Neut # (Auto) Not Reportable Lymph # (Auto) Not Reportable [place] # (Auto) Not Reportable Eos # (Auto) Not Reportable Baso # (Auto) Not Reportable Add Manual Diff YES YES Neutrophils % (Manual) 81 H 77 (48.0-80.0) % Band Neutrophils % 3 % Lymphocytes % (Manual) 10 L 16 (16.0-40.0) % Monocytes % (Manual) 3 3 (0.0-15.0) % Eosinophils % (Manual) 1 3 (0.0-7.0) % Basophils % (Manual) 2 H 1 (0.0-1.5) % Nucleated RBC % 0.0 0.0 /100WBC Absolute Seg Neuts 12.2 8.7 Band Neutrophils # 0.5 Lymphocytes # (Manual) 1.5 1.8 Monocytes # (Manual) 0.5 0.3 Eosinophils # (Manual) 0.2 0.3 Basophils # (Manual) 0 0 Nucleated RBCs # 0 0 K/uL Sodium 139 (136-146) mmol/L Potassium 4.2 (3.5-5.1) mmol/L Chloride 107 (98-110) mmol/L Carbon Dioxide 22 (21-31) mmol/L BUN 21 (6.0-23.0) mg/dL Creatinine 1.9 H (0.6-1.5) mg/dL Est Cr Clr Drug Dosing 60.53 mL/min Estimated GFR (MDRD) 39.1 ml/min Glucose 121 H (60-110) mg/dL Calcium 9.0 (8.8-10.8) mg/dL Med Orders - Current: Current Medications Hydrocodone Bitart/Acetaminophen ([place] 325-5 Mg) 1 - 2 tab PO Q4H PRN PRN Reason: Pain Last Admin: 12/18/16 05:45 Dose: 2 tab Amitriptyline HCl (Elavil) 75 mg PO BEDTIME [facility] Last Admin: 12/17/16 23:41 Dose: 75 mg Amlodipine Besylate (Norvasc) 5 mg PO DAILY [facility] Last Admin: 12/18/16 08:56 Dose: 5 mg Ascorbic Acid (Vitamin C) 500 mg PO DAILY [facility] Last Admin: 12/18/16 08:55 Dose: 500 mg Clonidine HCl (Catapres) 0.1 mg PO BID [facility] Last Admin: 12/18/16 08:56 Dose: 0.1 mg Cyanocobalamin (Vitamin B12) 2,500 mcg PO DAILY [facility] Last Admin: 12/18/16 09:03 Dose: 2,500 mcg Enoxaparin Sodium (Lovenox) 40 mg SUBCUT Q24H [facility] Last Admin: 12/17/16 14:14 Dose: 40 mg Daptomycin 500 mg/ Sodium (Chloride) 10 mls @ 200 mls/hr IV Q24H [facility] Last Admin: 12/17/16 13:16 Dose: 200 mls/hr Piperacillin Sod/Tazobactam (Sod 3.375 gm/ Sodium Chloride) 50 mls @ 100 mls/ hr IV Q6H [facility] Last Admin: 12/18/16 05:46 Dose: 100 mls/hr Lactated Ringer's (Ringers, Lactated) 1,000 mls @ 125 mls/hr IV ASDIRECTED [facility] Last Admin: 12/18/16 08:33 Dose: 125 mls/hr Levetiracetam (Keppra) 1,000 mg PO BID [facility] Last Admin: 12/18/16 08:55 Dose: 1,000 mg Metoprolol Tartrate (Lopressor) 50 mg PO BID [facility] Last Admin: 12/18/16 08:53 Dose: 50 mg Ferrous Gluconate [ (Iron] 27 Mg) 1 each PO DAILY [facility] Last Admin: 12/18/16 09:02 Dose: 1 each Potassium Gluconate (90 Mg) 1 each PO DAILY [facility] Last Admin: 12/18/16 09:03 Dose: 1 each Discontinued Medications Daptomycin (Cubicin) 500 mg IVPUSH Q24H [facility] Ketorolac Tromethamine (Toradol) 30 mg IVPUSH Q6H [facility] Last Admin: 12/17/16 14:13 Dose: 30 mg - My Orders Last 24 Hours: My Active Orders 12/17/16 13:01 Elevate Extremity [RC] ASDIRECTED Notify Provider Vital Signs [RC] ASDIRECTED RT Incentive Spirometry [RC] ASDIRECTED 12/17/16 13:15 Enoxaparin [Lovenox] 40 mg SUBCUT Q24H 12/17/16 14:30 Lactated Ringers [Ringers, Lactated] 1,000 ml IV ASDIRECTED 12/17/16 21:00 Metoprolol Tartrate [Lopressor] 50 mg PO BID cloNIDine [Catapres] 0.1 mg PO BID levETIRAcetam [Keppra] 1,000 mg PO BID 12/17/16 22:45 Amitriptyline [Elavil] 75 mg PO BEDTIME 12/18/16 09:00 Ascorbic Acid [Vitamin C] 500 mg PO DAILY Cyanocobalamin (Vitamin B12) [Vitamin B12] 2,500 mcg PO DAILY Patient's Own Medication [Ptom] 1 each PO DAILY Patient's Own Medication [Ptom] 1 each PO DAILY amLODIPine [Norvasc] 5 mg PO DAILY - Plan Plan:: 1230 Patient seen and examined. He is sitting in his hospital bed. He appears comfortable. He has no other complaints. Exam of the right lower extremity shows continued erythema in the low leg and foot. This has improved from yesterday. He continues to have some mild swelling. His dressing was not taken down today. The nurse to change the dressing did report that there was no significant drainage from the wound. He is able to move his ankle and toes to command. AT/EHL/gastroc 5/5. Sensation grossly intact. DP/PT pulses 2+. 1. Continue vancomycin and Zosyn 2. Watch creatinine. If this continues to rise, will plan for hospitalist consult. CMP in am. 3. WBC count is trending downward, no fevers noted. Repeat CBC in am. 4. Plan for PICC line placement as he will need longer term IV antibiotics due to his failure on oral antibiotics. 5. Plan for outpatient wound care
[2016-12-18] MEDS: Lactated Ringers 1,000 ML IV SCH ×2 (08:33→16:39)
[2016-12-18] MEDS: Metoprolol Tartrate 50 MG Tab PO SCH ×2 (08:53→21:23)
[2016-12-18] MEDS: levETIRAcetam 500 MG Tab PO SCH ×2 (08:55→21:23)
[2016-12-18] MEDS: Ascorbic Acid 500 MG Tab PO SCH (08:55)
[2016-12-18] MEDS: cloNIDine 0.1 MG Tab PO SCH ×2 (08:56→21:23)
[2016-12-18] MEDS: amLODIPine 5 MG Tab PO SCH (08:56)
[2016-12-18] MEDS ORDERED: amLODIPine 5 MG Tab PO SCH (09:00)
[2016-12-18] MEDS: FERROUS GLUCONATE 27 MG PO SCH (09:02)
[2016-12-18] MEDS: Potassium Gluconate 90 MG PO SCH (09:03)
[2016-12-18] MEDS: Cyanocobalamin (Vitamin B12) 500 MCG Tab PO SCH (09:03)
[2016-12-18] MEDS: Enoxaparin 40 MG/0.4 ML Syringe SUBCUT SCH (13:51)
[2016-12-18] MEDS: DAPTOmycin 500 MG in Sodium Chloride 0.9% 10 ML IV SCH (14:21)
--- NOTE | 2016-12-18 16:46 | CR ---
EXAMINATION: Fluoro and ultrasound guided left-sided PICC line placement. HISTORY: Long-term antibiotics. TECHNIQUE/FINDINGS: After written informed consent was obtained from the patient using ultrasound an d Fluoro guidance under aseptic conditions utilizing 1% lidocaine as local anesthesia left basilic ve in was accessed and 5 [place] PICC catheter was deployed with its tip in the distal superior vena cava . The catheter flushes and withdraws blood well. The catheter is flushed with the diluted heparin. T he catheter secured well. IMPRESSION: Successful Fluoro and ultrasound guided PICC line placement.
[2016-12-18] MEDS: Amitriptyline 25 MG Tab PO SCH (21:24)
[2016-12-19] MEDS: Lactated Ringers 1,000 ML IV SCH ×3 (01:22→21:18)
[2016-12-19] MEDS: Acetaminophen/HYDROcodone 325-5 MG Tab PO PRN ×5 (01:23→20:13)
[2016-12-19] MEDS: Piperacillin/Tazobactam 3.375 GM in Sodium Chloride 0.9% 50 ML IV SCH ×3 (01:27→11:49)
[2016-12-19] MEDS: Ascorbic Acid 500 MG Tab PO SCH (08:41)
[2016-12-19] MEDS: cloNIDine 0.1 MG Tab PO SCH ×2 (08:43→21:18)
[2016-12-19] MEDS: Metoprolol Tartrate 50 MG Tab PO SCH ×2 (08:43→21:17)
[2016-12-19] MEDS: amLODIPine 5 MG Tab PO SCH (08:43)
[2016-12-19] MEDS: FERROUS GLUCONATE 27 MG PO SCH (08:45)
[2016-12-19] MEDS: Potassium Gluconate 90 MG PO SCH (08:46)
[2016-12-19] MEDS: Cyanocobalamin (Vitamin B12) 500 MCG Tab PO SCH (09:09)
[2016-12-19] MEDS: levETIRAcetam 500 MG Tab PO SCH ×2 (09:09→21:17)
--- NOTE | 2016-12-19 09:54 | PCM.PN ---
<Preeti Anna - Last Filed: 12/19/16 09:54> - General Info Date of Service: 12/19/16 Functional Status: Reports: Pain Controlled, Tolerating Diet, Ambulating, Urinating - Review of Systems General: Reports: No Symptoms Pulmonary: Reports: No Symptoms Cardiovascular: Reports: No Symptoms Gastrointestinal: Reports: No Symptoms Genitourinary: Reports: No Symptoms Musculoskeletal: Reports: No Symptoms Neurological: Reports: No Symptoms Psychiatric: Reports: No Symptoms - Patient Data Vitals - Most Recent: Last Vital Signs Temp 36.3 C 12/19/16 08:00 Pulse 72 12/19/16 08:43 Resp 22 H 12/19/16 08:00 BP 138/78 12/19/16 08:43 Pulse Ox 96 12/19/16 08:00 Weight - Most Recent: 90.7 kg I&O - Last 24 Hours: Intake & Output 12/18/16 12/19/16 12/19/16 22:59 06:59 14:59 Intake Total 1700 3082 Output Total 1325 1300 Balance 375 1782 Lab Results Last 24 Hours: Laboratory Results - last 24 hr 12/19/16 12/19/16 Range/Units 04:50 04:50 WBC 11.98 H (4.0-11.0) K/uL RBC 3.82 L (4.50-5.90) M/uL Hgb 10.6 L (13.0-17.0) g/dL Hct 31.7 L (38.0-50.0) % MCV 83.0 (80.0-98.0) fL MCH 27.7 (27.0-32.0) pg MCHC 33.4 (31.0-37.0) g/dL RDW Std Deviation 41.0 (28.0-62.0) fl RDW Coeff of Jasmina 14 (11.0-15.0) % Plt Count 334 (150-400) K/uL MPV 9.10 (7.40-12.00) fL Add Manual Diff YES Neutrophils % (Manual) 70 (48.0-80.0) % Lymphocytes % (Manual) 14 L (16.0-40.0) % Monocytes % (Manual) 8 (0.0-15.0) % Eosinophils % (Manual) 6 (0.0-7.0) % Metamyelocytes % 2 % Nucleated RBC % 0.0 /100WBC Absolute Seg Neuts 8.4 Lymphocytes # (Manual) 1.7 Monocytes # (Manual) 1.0 Eosinophils # (Manual) 0.7 Absolute Metamyelocyte 0.2 Nucleated RBCs # 0 K/uL ESR 97 H (0-14) mm/hr Sodium 142 (136-146) mmol/L Potassium 4.3 (3.5-5.1) mmol/L Chloride 107 (98-110) mmol/L Carbon Dioxide 25 (21-31) mmol/L BUN 18 (6.0-23.0) mg/dL Creatinine 1.6 H (0.6-1.5) mg/dL Est Cr Clr Drug Dosing 72.27 mL/min Estimated GFR (MDRD) 47.6 ml/min Glucose 91 (60-110) mg/dL Calcium 9.2 (8.8-10.8) mg/dL Total Bilirubin 0.2 (0.1-1.5) mg/dL AST 15 (5-40) IU/L ALT 17 (8-54) IU/L Alkaline Phosphatase 91 (40-150) C-Reactive Protein 18.03 H (0.0-0.5) mg/dL Total Protein 6.0 (6.0-8.0) g/dL Albumin 3.0 L (3.5-5.0) g/dL Globulin 3.0 (2.0-3.5) g/dL Albumin/Globulin Ratio 1.0 L (1.3-2.8) Med Orders - Current: Current Medications Hydrocodone Bitart/Acetaminophen ([place] 325-5 Mg) 1 - 2 tab PO Q4H PRN PRN Reason: Pain Last Admin: 12/19/16 06:15 Dose: 2 tab Amitriptyline HCl (Elavil) 75 mg PO BEDTIME [facility] Last Admin: 12/18/16 21:24 Dose: 75 mg Amlodipine Besylate (Norvasc) 5 mg PO DAILY [facility] Last Admin: 12/19/16 08:43 Dose: 5 mg Ascorbic Acid (Vitamin C) 500 mg PO DAILY [facility] Last Admin: 12/19/16 08:41 Dose: 500 mg Clonidine HCl (Catapres) 0.1 mg PO BID [facility] Last Admin: 12/19/16 08:43 Dose: 0.1 mg Cyanocobalamin (Vitamin B12) 2,500 mcg PO DAILY [facility] Last Admin: 12/19/16 09:09 Dose: 2,500 mcg Enoxaparin Sodium (Lovenox) 40 mg SUBCUT Q24H [facility] Last Admin: 12/18/16 13:51 Dose: 40 mg Daptomycin 500 mg/ Sodium (Chloride) 10 mls @ 200 mls/hr IV Q24H [facility] Last Admin: 12/18/16 14:21 Dose: 200 mls/hr Piperacillin Sod/Tazobactam (Sod 3.375 gm/ Sodium Chloride) 50 mls @ 100 mls/ hr IV Q6H [facility] Last Admin: 12/19/16 06:10 Dose: 100 mls/hr Lactated Ringer's (Ringers, Lactated) 1,000 mls @ 125 mls/hr IV ASDIRECTED [facility] Last Admin: 12/19/16 01:22 Dose: 125 mls/hr Levetiracetam (Keppra) 1,000 mg PO BID [facility] Last Admin: 12/19/16 09:09 Dose: 1,000 mg Metoprolol Tartrate (Lopressor) 50 mg PO BID [facility] Last Admin: 12/19/16 08:43 Dose: 50 mg Ferrous Gluconate [ (Iron] 27 Mg) 1 each PO DAILY [facility] Last Admin: 12/19/16 08:45 Dose: 1 each Potassium Gluconate (90 Mg) 1 each PO DAILY [facility] Last Admin: 12/19/16 08:46 Dose: 1 each Discontinued Medications Daptomycin (Cubicin) 500 mg IVPUSH Q24H [facility] Ketorolac Tromethamine (Toradol) 30 mg IVPUSH Q6H [facility] Last Admin: 12/17/16 14:13 Dose: 30 mg - Exam General: Alert, Oriented HEENT: Pupils Equal, Pupils Reactive, Scleral Icterus Lungs: Normal Respiratory Effort Cardiovascular: Regular Rate Extremities: Other (Diffuse swelling of the dorsum of the left foot extending proximally to the ankle. Slight erythema of the foot/ankle. Area of debridement is dry and not draining today. He does have approximately 20 degrees of active ankle ROM. Dorsalis pedis and posterior tibial pulses +2 bilaterally. ) Wound/Incisions: Dressing Dry and Intact (Dressing changed this AM.) Neurological: No New Focal Deficit Psy/Mental Status: Alert, Normal Affect, Normal Mood - Problem List Review Problem List Initiated/Reviewed/Updated: Yes - Assessment Assessment:: Patient awake in bed this AM. Pain controlled overnight. Tolerating diet. Ambulating. No complaints today. - Plan Plan:: Continue pain management. Continue IV abx. Continue wet to dry dressing changes BID. <Bea Rueda R - Last Filed: 12/19/16 15:25> - Patient Data Vitals - Most Recent: Last Vital Signs Temp 96.0 F 12/19/16 11:49 Pulse 20 L 12/19/16 11:49 Resp 20 12/19/16 11:49 BP 132/84 12/19/16 11:49 Pulse Ox 97 12/19/16 11:49 I&O - Last 24 Hours: Intake & Output 12/19/16 12/19/16 12/19/16 06:59 14:59 22:59 Intake Total 3082 1010 Output Total 1300 Balance 1782 1010 Lab Results Last 24 Hours: Laboratory Results - last 24 hr 12/19/16 12/19/16 Range/Units 04:50 04:50 WBC 11.98 H (4.0-11.0) K/uL RBC 3.82 L (4.50-5.90) M/uL Hgb 10.6 L (13.0-17.0) g/dL Hct 31.7 L (38.0-50.0) % MCV 83.0 (80.0-98.0) fL MCH 27.7 (27.0-32.0) pg MCHC 33.4 (31.0-37.0) g/dL RDW Std Deviation 41.0 (28.0-62.0) fl RDW Coeff of Jasmina 14 (11.0-15.0) % Plt Count 334 (150-400) K/uL MPV 9.10 (7.40-12.00) fL Add Manual Diff YES Neutrophils % (Manual) 70 (48.0-80.0) % Lymphocytes % (Manual) 14 L (16.0-40.0) % Monocytes % (Manual) 8 (0.0-15.0) % Eosinophils % (Manual) 6 (0.0-7.0) % Metamyelocytes % 2 % Nucleated RBC % 0.0 /100WBC Absolute Seg Neuts 8.4 Lymphocytes # (Manual) 1.7 Monocytes # (Manual) 1.0 Eosinophils # (Manual) 0.7 Absolute Metamyelocyte 0.2 Nucleated RBCs # 0 K/uL ESR 97 H (0-14) mm/hr Sodium 142 (136-146) mmol/L Potassium 4.3 (3.5-5.1) mmol/L Chloride 107 (98-110) mmol/L Carbon Dioxide 25 (21-31) mmol/L BUN 18 (6.0-23.0) mg/dL Creatinine 1.6 H (0.6-1.5) mg/dL Est Cr Clr Drug Dosing 72.27 mL/min Estimated GFR (MDRD) 47.6 ml/min Glucose 91 (60-110) mg/dL Calcium 9.2 (8.8-10.8) mg/dL Total Bilirubin 0.2 (0.1-1.5) mg/dL AST 15 (5-40) IU/L ALT 17 (8-54) IU/L Alkaline Phosphatase 91 (40-150) C-Reactive Protein 18.03 H (0.0-0.5) mg/dL Total Protein 6.0 (6.0-8.0) g/dL Albumin 3.0 L (3.5-5.0) g/dL Globulin 3.0 (2.0-3.5) g/dL Albumin/Globulin Ratio 1.0 L (1.3-2.8) Med Orders - Current: Current Medications Hydrocodone Bitart/Acetaminophen ([place] 325-5 Mg) 1 - 2 tab PO Q4H PRN PRN Reason: Pain Last Admin: 12/19/16 10:22 Dose: 2 tab Amitriptyline HCl (Elavil) 75 mg PO BEDTIME [facility] Last Admin: 12/18/16 21:24 Dose: 75 mg Amlodipine Besylate (Norvasc) 5 mg PO DAILY [facility] Last Admin: 12/19/16 08:43 Dose: 5 mg Ascorbic Acid (Vitamin C) 500 mg PO DAILY [facility] Last Admin: 12/19/16 08:41 Dose: 500 mg Clonidine HCl (Catapres) 0.1 mg PO BID [facility] Last Admin: 12/19/16 08:43 Dose: 0.1 mg Cyanocobalamin (Vitamin B12) 2,500 mcg PO DAILY [facility] Last Admin: 12/19/16 09:09 Dose: 2,500 mcg Enoxaparin Sodium (Lovenox) 40 mg SUBCUT Q24H [facility] Last Admin: 12/19/16 13:25 Dose: 40 mg Daptomycin 500 mg/ Sodium (Chloride) 10 mls @ 200 mls/hr IV Q24H [facility] Last Admin: 12/19/16 11:45 Dose: 200 mls/hr Lactated Ringer's (Ringers, Lactated) 1,000 mls @ 125 mls/hr IV ASDIRECTED [facility] Last Admin: 12/19/16 10:23 Dose: 125 mls/hr Levetiracetam (Keppra) 1,000 mg PO BID [facility] Last Admin: 12/19/16 09:09 Dose: 1,000 mg Metoprolol Tartrate (Lopressor) 50 mg PO BID [facility] Last Admin: 12/19/16 08:43 Dose: 50 mg Ferrous Gluconate [ (Iron] 27 Mg) 1 each PO DAILY [facility] Last Admin: 12/19/16 08:45 Dose: 1 each Potassium Gluconate (90 Mg) 1 each PO DAILY [facility] Last Admin: 12/19/16 08:46 Dose: 1 each Discontinued Medications Daptomycin (Cubicin) 500 mg IVPUSH Q24H [facility] Piperacillin Sod/Tazobactam (Sod 3.375 gm/ Sodium Chloride) 50 mls @ 100 mls/ hr IV Q6H [facility] Last Admin: 12/19/16 11:49 Dose: 100 mls/hr Ketorolac Tromethamine (Toradol) 30 mg IVPUSH Q6H [facility] Last Admin: 12/17/16 14:13 Dose: 30 mg - My Orders Last 24 Hours: My Active Orders 12/18/16 19:38 Code Status [Resuscitation Status] Routine 12/20/16 06:00 BMP [BASIC METABOLIC PANEL,BMP] [CHEM] Routine CBC WITH AUTO DIFF [HEME] Routine - Plan Plan:: 1530 Patient seen and examined. Agree with above note. Patient states pain well controlled. No other complaints. VSS, afeb DRessing intact on foot. Less swelling and erythema in lower extremity. + wrinkles. NVI. WBC=11, Cr 1.6 Will plan to continue IV abx. Will d/c Zosyn and keep on Cubicin. Recheck labs tomorrow. If WBC does not increase will plan to d/c on Cubicin only. I did set up appt. with wound care on Saturday. Continue wet to dry dressing changes bid. Will follow.
[2016-12-19] MEDS: DAPTOmycin 500 MG in Sodium Chloride 0.9% 10 ML IV SCH (11:45)
[2016-12-19] MEDS: Enoxaparin 40 MG/0.4 ML Syringe SUBCUT SCH (13:25)
[2016-12-19] MEDS: Amitriptyline 25 MG Tab PO SCH (21:17)
[2016-12-20] MEDS: Acetaminophen/HYDROcodone 325-5 MG Tab PO PRN ×4 (02:44→16:26)
[2016-12-20] MEDS: Lactated Ringers 1,000 ML IV SCH (05:25)
[2016-12-20 06:50] LABS: CHLORIDE,CL 108 mmol/L (98-110); SODIUM,NA 140 mmol/L (136-146)
--- NOTE | 2016-12-20 08:44 | PCM.PN ---
<MohitBea R - Last Filed: 12/20/16 13:06> - Patient Data Vitals - Most Recent: Last Vital Signs Temp 97.4 F 12/20/16 11:32 Pulse 61 12/20/16 11:32 Resp 20 12/20/16 11:32 BP 129/73 12/20/16 11:32 Pulse Ox 100 12/20/16 11:32 I&O - Last 24 Hours: Intake & Output 12/19/16 12/20/16 12/20/16 22:59 06:59 14:59 Intake Total 1639 1199 10 Output Total 1100 1830 Balance 539 -631 10 Lab Results Last 24 Hours: Laboratory Results - last 24 hr 12/20/16 12/20/16 Range/Units 05:43 05:43 WBC 12.33 H (4.0-11.0) K/uL RBC 3.82 L (4.50-5.90) M/uL Hgb 10.6 L (13.0-17.0) g/dL Hct 31.3 L (38.0-50.0) % MCV 81.9 (80.0-98.0) fL MCH 27.7 (27.0-32.0) pg MCHC 33.9 (31.0-37.0) g/dL RDW Std Deviation 40.3 (28.0-62.0) fl RDW Coeff of Jasmina 13 (11.0-15.0) % Plt Count 246 (150-400) K/uL MPV 9.10 (7.40-12.00) fL Neut % (Auto) 66.5 (48.0-80.0) % Lymph % (Auto) 22.5 (16.0-40.0) % [place] % (Auto) 7.9 (0.0-15.0) % Eos % (Auto) 2.7 (0.0-7.0) % Baso % (Auto) 0.4 (0.0-1.5) % Neut # (Auto) 8.2 H (1.4-5.7) K/uL Lymph # (Auto) 2.8 H (0.6-2.4) K/uL [place] # (Auto) 1.0 H (0.0-0.8) K/uL Eos # (Auto) 0.3 (0.0-0.7) K/uL Baso # (Auto) 0.1 (0.0-0.1) K/uL Nucleated RBC % 0.0 /100WBC Nucleated RBCs # 0 K/uL Sodium 140 (136-146) mmol/L Potassium 4.1 (3.5-5.1) mmol/L Chloride 108 (98-110) mmol/L Carbon Dioxide 22 (21-31) mmol/L BUN 17 (6.0-23.0) mg/dL Creatinine 1.3 (0.6-1.5) mg/dL Est Cr Clr Drug Dosing 88.94 mL/min Estimated GFR (MDRD) > 60.0 ml/min Glucose 96 (60-110) mg/dL Calcium 9.2 (8.8-10.8) mg/dL Med Orders - Current: Current Medications Hydrocodone Bitart/Acetaminophen ([place] 325-5 Mg) 1 - 2 tab PO Q4H PRN PRN Reason: Pain Last Admin: 12/20/16 11:41 Dose: 2 tab Amitriptyline HCl (Elavil) 75 mg PO BEDTIME [facility] Last Admin: 12/19/16 21:17 Dose: 75 mg Amlodipine Besylate (Norvasc) 5 mg PO DAILY [facility] Last Admin: 12/20/16 09:26 Dose: 5 mg Ascorbic Acid (Vitamin C) 500 mg PO DAILY [facility] Last Admin: 12/20/16 09:25 Dose: 500 mg Clonidine HCl (Catapres) 0.1 mg PO BID [facility] Last Admin: 12/20/16 09:26 Dose: 0.1 mg Cyanocobalamin (Vitamin B12) 2,500 mcg PO DAILY [facility] Last Admin: 12/20/16 09:24 Dose: 2,500 mcg Enoxaparin Sodium (Lovenox) 40 mg SUBCUT Q24H [facility] Last Admin: 12/19/16 13:25 Dose: 40 mg Daptomycin 500 mg/ Sodium (Chloride) 10 mls @ 200 mls/hr IV Q24H [facility] Last Admin: 12/20/16 11:42 Dose: 200 mls/hr Lactated Ringer's (Ringers, Lactated) 1,000 mls @ 125 mls/hr IV ASDIRECTED [facility] Last Admin: 12/20/16 05:25 Dose: 125 mls/hr Levetiracetam (Keppra) 1,000 mg PO BID [facility] Last Admin: 12/20/16 09:24 Dose: 1,000 mg Metoprolol Tartrate (Lopressor) 50 mg PO BID [facility] Last Admin: 12/20/16 09:25 Dose: 50 mg Ferrous Gluconate [ (Iron] 27 Mg) 1 each PO DAILY [facility] Last Admin: 12/20/16 09:24 Dose: 1 each Potassium Gluconate (90 Mg) 1 each PO DAILY [facility] Last Admin: 12/20/16 09:24 Dose: 1 each Discontinued Medications Daptomycin (Cubicin) 500 mg IVPUSH Q24H [facility] Piperacillin Sod/Tazobactam (Sod 3.375 gm/ Sodium Chloride) 50 mls @ 100 mls/ hr IV Q6H [facility] Last Admin: 12/19/16 11:49 Dose: 100 mls/hr Ketorolac Tromethamine (Toradol) 30 mg IVPUSH Q6H [facility] Last Admin: 12/17/16 14:13 Dose: 30 mg - Problem List & Annotations (1) Injury of foot, left SNOMED Code(s): 601949094 Code(s): S99.922A - UNSPECIFIED INJURY OF LEFT FOOT, INITIAL ENCOUNTER Status: Acute Current Visit: No QualifierTitle: Encounter type: initial encounter Qualified Code(s): S99.922A - Unspecified injury of left foot, initial encounter - Problem List Review Problem List Initiated/Reviewed/Updated: Yes - My Orders Last 24 Hours: My Active Orders 12/20/16 13:05 Foot w wo Cont Lt [MR] Urgent - Plan Plan:: 1300 Pt seen and examined. Agree with above. Left foot with some swelling, redness decreased. Minimal drainage on dressing. Able to move ankle without pain. NVI. VSS, afeb WBC=12, Cr=1.2 1. MRI w/wo contrast left foot to r/o abscess 2. continue IV Cubicin daily--PICC line placed 3. possible discharge later today depending on MRI results 4. CAM walker boot prn for assistance with ambulation 5. wound care nurse appt tomorrow 3pm 6. f/u with our office Saturday <Preeti Anna - Last Filed: 12/20/16 14:06> - General Info Date of Service: 12/20/16 Functional Status: Reports: Pain Controlled, Tolerating Diet, Ambulating, Urinating - Review of Systems General: Reports: No Symptoms Pulmonary: Reports: No Symptoms Cardiovascular: Reports: No Symptoms Gastrointestinal: Reports: No Symptoms Genitourinary: Reports: No Symptoms Musculoskeletal: Reports: Foot Pain, Joint Swelling Neurological: Reports: No Symptoms Psychiatric: Reports: No Symptoms - Patient Data Vitals - Most Recent: Last Vital Signs Temp 36.9 C 12/20/16 04:00 Pulse 63 12/20/16 04:00 Resp 19 12/20/16 04:00 BP 133/83 12/20/16 04:00 Pulse Ox 93 L 12/20/16 04:00 Weight - Most Recent: 90.7 kg I&O - Last 24 Hours: Intake & Output 12/19/16 12/20/16 12/20/16 22:59 06:59 14:59 Intake Total 1639 1199 Output Total 1100 1830 Balance 539 -631 Lab Results Last 24 Hours: Laboratory Results - last 24 hr 12/20/16 12/20/16 Range/Units 05:43 05:43 WBC 12.33 H (4.0-11.0) K/uL RBC 3.82 L (4.50-5.90) M/uL Hgb 10.6 L (13.0-17.0) g/dL Hct 31.3 L (38.0-50.0) % MCV 81.9 (80.0-98.0) fL MCH 27.7 (27.0-32.0) pg MCHC 33.9 (31.0-37.0) g/dL RDW Std Deviation 40.3 (28.0-62.0) fl RDW Coeff of Jasmina 13 (11.0-15.0) % Plt Count 246 (150-400) K/uL MPV 9.10 (7.40-12.00) fL Neut % (Auto) 66.5 (48.0-80.0) % Lymph % (Auto) 22.5 (16.0-40.0) % [place] % (Auto) 7.9 (0.0-15.0) % Eos % (Auto) 2.7 (0.0-7.0) % Baso % (Auto) 0.4 (0.0-1.5) % Neut # (Auto) 8.2 H (1.4-5.7) K/uL Lymph # (Auto) 2.8 H (0.6-2.4) K/uL [place] # (Auto) 1.0 H (0.0-0.8) K/uL Eos # (Auto) 0.3 (0.0-0.7) K/uL Baso # (Auto) 0.1 (0.0-0.1) K/uL Nucleated RBC % 0.0 /100WBC Nucleated RBCs # 0 K/uL Sodium 140 (136-146) mmol/L Potassium 4.1 (3.5-5.1) mmol/L Chloride 108 (98-110) mmol/L Carbon Dioxide 22 (21-31) mmol/L BUN 17 (6.0-23.0) mg/dL Creatinine 1.3 (0.6-1.5) mg/dL Est Cr Clr Drug Dosing 88.94 mL/min Estimated GFR (MDRD) > 60.0 ml/min Glucose 96 (60-110) mg/dL Calcium 9.2 (8.8-10.8) mg/dL Med Orders - Current: Current Medications Hydrocodone Bitart/Acetaminophen ([place] 325-5 Mg) 1 - 2 tab PO Q4H PRN PRN Reason: Pain Last Admin: 12/20/16 06:51 Dose: 2 tab Amitriptyline HCl (Elavil) 75 mg PO BEDTIME [facility] Last Admin: 12/19/16 21:17 Dose: 75 mg Amlodipine Besylate (Norvasc) 5 mg PO DAILY [facility] Last Admin: 12/19/16 08:43 Dose: 5 mg Ascorbic Acid (Vitamin C) 500 mg PO DAILY [facility] Last Admin: 12/19/16 08:41 Dose: 500 mg Clonidine HCl (Catapres) 0.1 mg PO BID [facility] Last Admin: 12/19/16 21:18 Dose: 0.1 mg Cyanocobalamin (Vitamin B12) 2,500 mcg PO DAILY [facility] Last Admin: 12/19/16 09:09 Dose: 2,500 mcg Enoxaparin Sodium (Lovenox) 40 mg SUBCUT Q24H [facility] Last Admin: 12/19/16 13:25 Dose: 40 mg Daptomycin 500 mg/ Sodium (Chloride) 10 mls @ 200 mls/hr IV Q24H [facility] Last Admin: 12/19/16 11:45 Dose: 200 mls/hr Lactated Ringer's (Ringers, Lactated) 1,000 mls @ 125 mls/hr IV ASDIRECTED [facility] Last Admin: 12/20/16 05:25 Dose: 125 mls/hr Levetiracetam (Keppra) 1,000 mg PO BID [facility] Last Admin: 12/19/16 21:17 Dose: 1,000 mg Metoprolol Tartrate (Lopressor) 50 mg PO BID [facility] Last Admin: 12/19/16 21:17 Dose: 50 mg Ferrous Gluconate [ (Iron] 27 Mg) 1 each PO DAILY [facility] Last Admin: 12/19/16 08:45 Dose: 1 each Potassium Gluconate (90 Mg) 1 each PO DAILY [facility] Last Admin: 12/19/16 08:46 Dose: 1 each Discontinued Medications Daptomycin (Cubicin) 500 mg IVPUSH Q24H [facility] Piperacillin Sod/Tazobactam (Sod 3.375 gm/ Sodium Chloride) 50 mls @ 100 mls/ hr IV Q6H [facility] Last Admin: 12/19/16 11:49 Dose: 100 mls/hr Ketorolac Tromethamine (Toradol) 30 mg IVPUSH Q6H [facility] Last Admin: 12/17/16 14:13 Dose: 30 mg - Exam General: Alert, Oriented HEENT: Pupils Equal, Pupils Reactive Neck: Trachea Midline Lungs: Normal Respiratory Effort Cardiovascular: Regular Rate Extremities: Other (Improvement of swelling of the dorsum of the left foot. Slight erythema of the foot/ankle. Area of debridement is dry and not draining today. He does have approximately 20 degrees of active ankle ROM. Dorsalis pedis and posterior tibial pulses +2 bilaterally.) Wound/Incisions: Dressing Dry and Intact (Dressing changed this AM.) Neurological: No New Focal Deficit Psy/Mental Status: Alert, Normal Affect, Normal Mood - Problem List Review Problem List Initiated/Reviewed/Updated: Yes - My Orders Last 24 Hours: My Active Orders 12/19/16 14:51 Admission Status [Patient Status] [ADT] Routine - Assessment Assessment:: Patient awake in bed this AM. Pain controlled overnight. Tolerating diet. Ambulating. VSS Afebrile. WBC 12.33. No complaints today. - Plan Plan:: Dressing changed this AM. Continue wet to dry dressing changes BID. Continue pain management. Continue IV abx. Scheduled with wound care nurse Thursday 12/21. Followup in ortho clinic Monday 12/25 at 8 AM with Preeti Anna PA-C. Continue IV Cubicin 500 mg daily for one more week.
[2016-12-20] MEDS: Cyanocobalamin (Vitamin B12) 500 MCG Tab PO SCH (09:24)
[2016-12-20] MEDS: levETIRAcetam 500 MG Tab PO SCH (09:24)
[2016-12-20] MEDS: FERROUS GLUCONATE 27 MG PO SCH (09:24)
[2016-12-20] MEDS: Potassium Gluconate 90 MG PO SCH (09:24)
[2016-12-20] MEDS: Ascorbic Acid 500 MG Tab PO SCH (09:25)
[2016-12-20] MEDS: Metoprolol Tartrate 50 MG Tab PO SCH (09:25)
[2016-12-20] MEDS: cloNIDine 0.1 MG Tab PO SCH (09:26)
[2016-12-20] MEDS: amLODIPine 5 MG Tab PO SCH (09:26)
[2016-12-20] MEDS: DAPTOmycin 500 MG in Sodium Chloride 0.9% 10 ML IV SCH (11:42)
[2016-12-20] MEDS: Enoxaparin 40 MG/0.4 ML Syringe SUBCUT SCH (13:30)
[2016-12-20 16:33] VITALS: BP 154/93
--- NOTE | 2016-12-21 09:17 | PCM.SN ---
<Preeti Anna - Last Filed: 12/21/16 09:17> - Free Text/Narrative Note: Discharge summary. Dressing changed prior to discharge. See discharge plan for complete list of discharge medications and instructions. Dictation #: [id number] <Bea Rueda - Last Filed: 12/24/16 09:39> - Free Text/Narrative Note: MRI of foot was reviewed prior to his discharge. It does show evidence of cellulitis but not osteomyelitis or abscess formation. Will plan to continue IV abx. He has appointment with wound care nurse for dressing recommendations. Will f/u next week for re-eval. Advised to return to ER over the weekend if he has questions/concerns.
--- NOTE | 2016-12-21 10:24 | MR ---
EXAM DATE: 12/19/16 PATIENT'S AGE: 41 Patient: TRISTIN BAKER Facility: [facility], [place] Site . Site : 1975 Study: MRI Extremity W/ and W/O Cont [id number]/28/[id number] 4:22:00 PM Ordering Physician: Mohit Figueredo Final Report: HISTORY: Evaluate for abscess. Technique: Axial, sagittal and coronal T1, proton density, proton density fat-sat and STIR images were obtained of the left foot. Postcontrast T1 weighted images were also acquired. Comparison: Radiographs 12/10/2016. Findings: There is soft tissue signal abnormality and enhancement involving the foot and ankle compatible with cellulitis changes. There is a suspected soft tissue wound along the dorsal medial aspect of the midfoot. There is nonenhancement of subcutaneous tissues underlying the suspected wound and tracking along the dorsal medial aspect of the midfoot and proximal most forefoot and also tracking into the anterior subcutaneous tissues of the distal lower leg. The entire area nonenhancement does not have signal characteristics typical for fluid though there is likely some fluid tracking within the subcutaneous tissues which may reflect infected fluid. Areas of nonenhancement otherwise may relate to devitalized tissue. The total process spans an approximately 12.0 cm proximal/distal extent. There is no underlying osteomyelitis. No definite septic arthritis. Hallux valgus. No acute fracture. No significant tendon tearing. Small amount of fluid is present within the posterior tibial tendon sheath at the distal tibial metaphyseal level. Plantar fascia appears intact. Impression: 1. Cellulitis involving the left foot. 2. Suspected wound along the dorsal medial aspect of the midfoot. This could be correlated with physical examination. 3. There is nonenhancement of subcutaneous tissues underlying the suspected wound and tracking along the dorsal medial aspect of the midfoot and proximal most forefoot and also tracking into the anterior subcutaneous tissues of the distal lower leg. This may reflect a combination of devitalized subcutaneous tissue and subcutaneous fluid which may be infected. 4. No septic arthritis or osteomyelitis. Dictated by Mason Cobb MD @ Dec 20 2016 4:46PM (Electronic Signature) Report Signed by Proxy. SUSAN
--- NOTE | 2016-12-25 13:13 | DISCH ---
DATE OF DISCHARGE: 12/20/2016 PRIMARY CARE PHYSICIAN: Moo PCP ADMITTING DIAGNOSIS: Open wound, left foot. OTHER MEDICAL DIAGNOSES: 1. Anxiety. 2. High blood pressure. 3. Seizure disorder. DISCHARGE DIAGNOSES: 1. Open wound to left foot. 2. Anxiety. 3. High blood pressure. 4. Seizure disorder. BRIEF HISTORY: Benji is a 41-year-old male who sustained a washer hand injury to his left foot on December 10, 2016. He was admitted for IV antibiotics and discharged home on December 12, 2016. During that time, he was taking oral antibiotics. He followed up in the clinic on December 17, 2016. At this time, the wound had significantly worsened. He was admitted to the hospital again on December 17, 2016 for IV antibiotics. OPERATIONS: None. HOSPITAL COURSE: Pain was controlled with p.o. pain medication. The patient did receive Cubicin and Zosyn daily. He was followed by Physical Therapy during the hospital stay. Upon discharge, the patient was afebrile, and his vital signs were stable. He was started on Lovenox on day #2 of admission for DVT prophylaxis. Pain has currently controlled with oral pain medications only and white blood count has normalized. He is tolerating oral intake and ambulating. He does feel comfortable with discharge home today. DISCHARGE MEDICATIONS: Cubicin 500 mg IV daily. DISCHARGE INSTRUCTIONS: 1. The patient will follow up with Wound Care on Wednesday, December 21, 2016. This appointment has been made for the patient. 2. The patient will follow up in Orthopedic Clinic on December 25, 2016. This appointment was made for the patient. 3. The patient will continue wet-to-dry dressing changes b.i.d. 4. Prescribed Calvin 5/325 mg as needed for pain. 5. Cubicin IV infusion daily. For complete medication reconciliation and discharge instructions, please refer to the patient's EHR. If the patient has questions or concerns prior to followup, he may call the clinic. GERARDO BA /[phone]
== END 2016-12-20 19:15 | disposition home or self-care (01) | DRG 556 ==
LOC: MW.MS 11:39 → OBSVTOIN 12-19 14:51
PROVIDERS: ADMIT Orthopaedic Surgery; ATTEND Orthopaedic Surgery
PROC: 2W0 Placement, Anatomical Regions, Change (ICD-10-PCS; principal; 2016-12-19)
DX: M79.672 Pain in left foot (principal); T81.89XA Other complications of procedures, not elsewhere classified, initial encounter; Z88.0 Allergy status to penicillin; Z79.899 Other long term (current) drug therapy
CPT/HCPCS: 36415; 36569; 73720-26-LT; 73720-LT; 76937; 76937-26; 77002; 77002-26; 80048; 80053; 85025; 85652; 86140; 96361; 96365; 96366; 96372; 96375; 96376; A9270-GY; G0378; G0379; J0878; J1650; J1885; J2543; J7050; J7120

== ENCOUNTER 2016-12-26 09:51 | Day surgery (SDC) | payer MEDICAID, OTHER ==
[~2016-12-26 09:51] MED LIST: Acetaminophen/HYDROcodone 325-5 MG Tab PO PRN; DAPTOmycin 500 MG in Sodium Chloride 0.9% 10 ML IVPUSH SCH; Lactated Ringers 1,000 ML IV SCH
[2016-12-26] MEDS ORDERED: Midazolam 1 MG/ML 2 ML SDV ONE ×2 (09:59→10:22)
[2016-12-26] MEDS ORDERED: Lidocaine 2% 5 ML SDV ONE (10:22)
[2016-12-26] MEDS ORDERED: fentaNYL 100 MCG/2 ML SDV ONE ×2 (10:22→11:42)
[2016-12-26] MEDS ORDERED: Propofol 200 MG/20 ML SDV ONE (10:22)
[2016-12-26] MEDS ORDERED: DAPTOmycin 500 MG in Sodium Chloride 0.9% 10 ML IV ONE (11:00)
--- NOTE | 2016-12-26 11:26 | PCM.PREANE ---
Preanesthetic Assessment - Anesthesia/Transfusion/Family Hx Anesthesia History: Prior Anesthesia Without Reaction Transfusion History: No Prior Transfusion(s) - Physical Assessment NPO Status Date: 12/25/16 O2 Sat by Pulse Oximetry: 99 Respiratory Rate: 16 Vital Signs: Last Vital Signs Temp 36.6 C 12/26/16 10:13 Pulse 81 12/26/16 10:13 Resp 16 12/26/16 10:13 BP 118/80 12/26/16 10:13 Pulse Ox 99 12/26/16 10:13 Height: 1.91 m Weight: 86.636 kg ASA Class: 2 Dentition: Reports: Broken Tooth/Teeth, Missing Tooth/Teeth, Caries Lungs: Clear to Auscultation, Normal Respiratory Effort Cardiovascular: Regular Rate, Regular Rhythm - Lab Values: Laboratory Last Values WBC 17.03 K/uL (4.0-11.0) H 12/26/16 10:19 RBC 4.77 M/uL (4.50-5.90) 12/26/16 10:19 Hgb 13.3 g/dL (13.0-17.0) 12/26/16 10:19 Hct 39.8 % (38.0-50.0) 12/26/16 10:19 MCV 83.4 fL (80.0-98.0) 12/26/16 10:19 MCH 27.9 pg (27.0-32.0) 12/26/16 10:19 MCHC 33.4 g/dL (31.0-37.0) 12/26/16 10:19 RDW Std Deviation 40.8 fl (28.0-62.0) 12/26/16 10:19 RDW Coeff of Jasmina 13 % (11.0-15.0) 12/26/16 10:19 Plt Count 402 K/uL (150-400) H 12/26/16 10:19 MPV 8.90 fL (7.40-12.00) 12/26/16 10:19 Add Manual Diff YES 12/26/16 10:19 Neutrophils % (Manual) 57 % (48.0-80.0) 12/26/16 10:19 Band Neutrophils % 3 % 12/26/16 10:19 Lymphocytes % (Manual) 32 % (16.0-40.0) 12/26/16 10:19 Monocytes % (Manual) 3 % (0.0-15.0) 12/26/16 10:19 Eosinophils % (Manual) 3 % (0.0-7.0) 12/26/16 10:19 Basophils % (Manual) 1 % (0.0-1.5) 12/26/16 10:19 Metamyelocytes % 1 % 12/26/16 10:19 Nucleated RBC % 0.0 /100WBC 12/26/16 10:19 Absolute Seg Neuts 9.7 12/26/16 10:19 Band Neutrophils # 0.5 12/26/16 10:19 Lymphocytes # (Manual) 5.4 12/26/16 10:19 Monocytes # (Manual) 0.5 12/26/16 10:19 Eosinophils # (Manual) 0.5 12/26/16 10:19 Basophils # (Manual) 0 12/26/16 10:19 Absolute Metamyelocyte 0.2 12/26/16 10:19 Nucleated RBCs # 0 K/uL 12/26/16 10:19 ESR 60 mm/hr (0-14) H 12/26/16 10:19 Sodium 139 mmol/L (136-146) 12/26/16 10:19 Potassium 4.2 mmol/L (3.5-5.1) 12/26/16 10:19 Chloride 105 mmol/L (98-110) 12/26/16 10:19 Carbon Dioxide 24 mmol/L (21-31) 12/26/16 10:19 BUN 16 mg/dL (6.0-23.0) 12/26/16 10:19 Creatinine 1.6 mg/dL (0.6-1.5) H 12/26/16 10:19 Est Cr Clr Drug Dosing 71.88 mL/min 12/26/16 10:19 Estimated GFR (MDRD) 47.6 ml/min 12/26/16 10:19 Glucose 110 mg/dL (60-110) 12/26/16 10:19 Calcium 10.4 mg/dL (8.8-10.8) 12/26/16 10:19 C-Reactive Protein 3.01 mg/dL (0.0-0.5) H 12/26/16 10:19 - Allergies Allergies/Adverse Reactions: Allergies Allergy/AdvReac Type Severity Reaction Status Date / Time penicillin G Allergy Airway Verified 10/03/17 11:44 Tightness - Anesthesia Plan Pre-Op Medication Ordered: None - Acknowledgements Anesthesia Type Planned: General Anesthesia Pt an Appropriate Candidate for the Planned Anesthesia: Yes Alternatives and Risks of Anesthesia Discussed w Pt/Guardian: Yes Pt/Guardian Understands and Agrees with Anesthesia Plan: Yes Additional Comments: poor historian, scheduled for debridement and wounf vac placement for foot injured with presure washer at work. has PICC line for antibiotics. PMH: CKD # with cr=1.6, smoker, hx of alcohol related seizure x 1 2 years ago. no seizures since, htn, gerd, poor dentition. PreAnesthesia Questionnaire HEENT History: Reports: None Cardiovascular History: Reports: Hypertension Respiratory History: Reports: None Gastrointestinal History: Reports: GERD Genitourinary History: Reports: None Musculoskeletal History: Reports: Gout Other Musculoskeletal History: one episode of gout in feet 2 years ago Neurological History: Reports: Seizure Other Neuro History: had one seizure 2 years ago (? alcohol induced) Psychiatric History: Reports: Anxiety, Other (See Below) Other Psychiatric History: has insomnia, takes amitriptyline Endocrine/Metabolic History: Reports: None Hematologic History: Reports: None Immunologic History: Reports: None Oncologic (Cancer) History: Reports: None Dermatologic History: Reports: None - Infectious Disease History Infectious Disease History: Reports: Chicken Pox - Past Surgical History Head Surgeries/Procedures: Reports: None GI Surgical History: Reports: Colonoscopy, Hernia, Inguinal - SUBSTANCE USE Smoking Status *Q: Current Every Day Smoker Tobacco Use Within Last Twelve Months: Cigarettes Second Hand Smoke Exposure: Yes Recreational Drug Use History: No - HOME MEDS Home Medications: Home Meds Metoprolol Tartrate 50 mg PO BID 12/10/16 [History] Omeprazole 40 mg PO DAILY 12/10/16 [History] amLODIPine Besylate [Amlodipine Besylate] 5 mg PO DAILY 12/10/16 [History] cloNIDine [Catapres] 0.1 mg PO BID 12/10/16 [History] levETIRAcetam [Keppra] 1,000 mg PO BID 12/10/16 [History] Acetaminophen/HYDROcodone [[place] 325-5 MG] 1 - 2 tab PO Q4H PRN #80 tablet 12/13 [Rx] Amitriptyline HCl 75 mg PO BEDTIME 12/17/16 [History] Ascorbate Calcium [Vitamin C] 500 mg PO DAILY 12/17/16 [History] Cyanocobalamin (Vitamin B-12) [Vitamin B12] 2,500 mcg PO DAILY 12/17/16 [History ] Ferrous Gluconate [Iron] 27 mg PO DAILY 12/17/16 [History] Potassium Gluconate 90 mg PO DAILY 12/17/16 [History] - CURRENT (IN HOUSE) MEDS Current Meds: Current Medications Hydrocodone Bitart/Acetaminophen ([place] 325-5 Mg) 1 - 2 tab PO Q4H PRN PRN Reason: Pain Lactated Ringer's (Ringers, Lactated) 1,000 mls @ 100 mls/hr IV ASDIRECTED ANNETTA Last Admin: 12/26/16 10:21 Dose: 100 mls/hr Daptomycin 500 mg/ Sodium (Chloride) 10 mls @ 300 mls/hr IVPUSH ONCALL ANNETTA Discontinued Medications Fentanyl (Sublimaze) Confirm Administered Dose 300 mcg .ROUTE .STK-MED ONE Stop: 12/26/16 10:23 Daptomycin 500 mg/ Sodium (Chloride) 10 mls @ 300 mls/hr IV ONETIME ONE Stop: 12/26/16 11:01 Lidocaine (Xylocaine-Mpf 2%) Confirm Administered Dose 10 ml .ROUTE .STK-MED ONE Stop: 12/26/16 10:23 Midazolam HCl (Versed 1 Mg/Ml) Confirm Administered Dose 2 mg .ROUTE .STK-MED ONE Stop: 12/26/16 10:00 Midazolam HCl (Versed 1 Mg/Ml) Confirm Administered Dose 2 mg .ROUTE .STK-MED ONE Stop: 12/26/16 10:23 Propofol (Diprivan 20 Ml) Confirm Administered Dose 400 mg .ROUTE .STK-MED ONE Stop: 12/26/16 10:23
--- NOTE | 2016-12-26 12:20 | PCM.OPNOTE ---
- General Post-Op/Procedure Note Date of Surgery/Procedure: 12/26/16 Operative Procedure(s): Left foot ED to muscle 61mm x 36mm x 5 mm with placement of VAC dressing Post-Op Diagnosis: L foot wound Primary Surgeon: Bea Rueda Triple Drum Operator: Marek Ron in mLs: 5 Condition: Good Free Text/Narrative:: tt=0 min #[id number]
[2016-12-26] MEDS ORDERED: fentaNYL 100 MCG/2 ML SDV IVPUSH PRN (12:24)
[2016-12-26] MEDS ORDERED: HYDROmorphone 2 MG/ML Syringe IVPUSH ONE (12:24)
--- NOTE | 2016-12-26 13:47 | PCM48HPAN ---
Post Anesthesia Note - EVALUATION WITHIN 48HRS OF ANESTHETIC Vital Signs in Normal Range: Yes Patient Participated in Evaluation: Yes Respiratory Function Stable: Yes Airway Patent: Yes Cardiovascular Function Stable: Yes Hydration Status Stable: Yes Pain Control Satisfactory: Yes Nausea and Vomiting Control Satisfactory: Yes Mental Status Recovered: Yes
--- NOTE | 2016-12-26 13:48 | PCM.POSTAN ---
POST ANESTHESIA ASSESSMENT - MENTAL STATUS Mental Status: Alert, Oriented - RESPIRATORY Respiratory Status: Respiratory Rate WNL, Airway Patent, O2 Saturation Stable - CARDIOVASCULAR CV Status: Pulse Rate WNL, Blood Pressure Stable - GASTROINTESTINAL GI Status: No Symptoms - POST OP HYDRATION Hydration Status: Adequate & Stable
[2016-12-26 13:55] VITALS: BP 114/74
--- NOTE | 2016-12-27 15:07 | OR ---
SURGEON: Bea Rueda MD DATE OF PROCEDURE: 12/26/2016 PREOPERATIVE DIAGNOSIS: Left foot wound. POSTOPERATIVE DIAGNOSIS: Left foot wound. PROCEDURE: Excisional debridement left foot wound to muscle (61 mm x 36 mm x 5 mm). DIAMOND POWDER MIXER: Marek Ron, PGY II. ANESTHESIA: General. ESTIMATED BLOOD LOSS: 10 mL. TOURNIQUET TIME: 0 minutes. COMPLICATIONS: None. DVT PROPHYLAXIS: Not indicated. IMPLANTS USED: None. BRIEF HISTORY: Benji is a 41-year-old male, who sustained an injury to his left foot while using a high-bobbin washer. He has developed a wound over the dorsal medial aspect of the foot. He has been treated with IV antibiotics. The erythema and swelling have decreased, however, the wound persist. I felt that he would have shorter time to healing if a wound VAC was placed. He developed a significant eschar over the dorsum of the wound, and I felt that debriding this would help with healing as well. The risks and goals of procedure were discussed with the patient and were documented preoperatively. He agreed to proceed. DESCRIPTION OF PROCEDURE: The patient was properly identified and brought to the operating room. He was transferred from the OR cart and placed on the operating room table in supine position. General anesthesia was administered. After adequate anesthesia was obtained, the left lower extremity was prepped in standard fashion using Betadine solution. It was then sterilely draped. A time-out was performed to ensure correct site and procedure. Preoperative antibiotics were held. The surgical site had been marked preoperatively. The wound was inspected. He had a hardened layer of eschar over the dorsum of the wound. The surrounding tissues showed some sloughing of the skin. There was no significant erythema or areas of drainage. The 15 blade scalpels were used to debride the eschar from the wound. The wound depth measured approximately 5 mm. There was an area in the wound along the distal aspect which showed some tunneling. The overlying tissue in this area was also excised. Final wound measurements showed an anterior to posterior distance of 61 mm. Medial to lateral distance was 28 mm along the distal portion of the wound and 36 mm along the proximal portion of the wound. Again, overall depth was 5 mm. The wound was then copiously irrigated with 3 L of normal saline using a Pulsavac experimental assembler. At the completion, the wound bed appeared clean. Cultures of the deep tissue were sent for culture prior to wound irrigation. Cubicin was given IV following that. The VAC dressing sponge was then contoured to the open area. This was held in place and the appropriate coverings were placed. A small hole was placed into the sponge area and the overlying tubing was connected. The VAC was turned on and we did have adequate suction at the VAC. An Abdias wrap was used to cover the tubes and foot. The patient was awakened from his anesthetic and transferred back to the operating room cart. He was brought to recovery room in stable condition. All needle and sponge counts were correct. WILIAM / JESENIA /[id number]
== END 2016-12-26 14:32 | disposition home or self-care (01) ==
LOC: MW.SDS 09:51
PROVIDERS: ATTEND Orthopaedic Surgery
DX: S91.302A Unspecified open wound, left foot, initial encounter (principal); F17.210 Nicotine dependence, cigarettes, uncomplicated; M10.9 Gout, unspecified; F41.9 Anxiety disorder, unspecified; I10 Essential (primary) hypertension; G40.909 Epilepsy, unspecified, not intractable, without status epilepticus; K21.9 Gastro-esophageal reflux disease without esophagitis; Z79.899 Other long term (current) drug therapy; Z88.0 Allergy status to penicillin; Z91.030 Bee allergy status; Z98.890 Other specified postprocedural states
CPT/HCPCS: 11043; 11046; 36415; 80048; 85025; 85652; 86140; 87070; 87075; 87205; J2250; J3010; J7120; 00400; J2704

== ENCOUNTER 2017-01-23 11:43 | Day surgery (SDC) | payer OTHER, BC ==
--- NOTE | 2017-01-23 11:13 | PCM.PREANE ---
Preanesthetic Assessment - Anesthesia/Transfusion/Family Hx Anesthesia History: Prior Anesthesia Without Reaction Transfusion History: No Prior Transfusion(s) Intubation History: Unknown - Review of Systems Cardiovascular: Other (HTN) Gastrointestinal: Other (GERD) - Physical Assessment Height: 6 ft 3 in Weight: 198 lb ASA Class: 3 Mental Status: Alert & Oriented x3 - Allergies Allergies/Adverse Reactions: Allergies Allergy/AdvReac Type Severity Reaction Status Date / Time penicillin G Allergy Airway Verified 01/22/17 10:32 Tightness - Blood Product(s) Available: None - Anesthesia Plan Pre-Op Medication Ordered: None - Acknowledgements Anesthesia Type Planned: General Anesthesia Pt an Appropriate Candidate for the Planned Anesthesia: Yes Alternatives and Risks of Anesthesia Discussed w Pt/Guardian: Yes Pt/Guardian Understands and Agrees with Anesthesia Plan: Yes PreAnesthesia Questionnaire HEENT History: Reports: None Cardiovascular History: Reports: Hypertension Respiratory History: Reports: None Gastrointestinal History: Reports: GERD Genitourinary History: Reports: None Musculoskeletal History: Reports: Gout Other Musculoskeletal History: one episode of gout in feet 2 years ago Neurological History: Reports: Seizure Other Neuro History: had one seizure 2 years ago (? alcohol induced) Psychiatric History: Reports: Anxiety, Other (See Below) Other Psychiatric History: has insomnia, takes amitriptyline Endocrine/Metabolic History: Reports: None Hematologic History: Reports: None Immunologic History: Reports: None Oncologic (Cancer) History: Reports: None Dermatologic History: Reports: None - Infectious Disease History Infectious Disease History: Reports: Chicken Pox - Past Surgical History Head Surgeries/Procedures: Reports: None GI Surgical History: Reports: Colonoscopy, Hernia, Inguinal Musculoskeletal Surgical History: Reports: Other (See Below) Other Musculoskeletal Surgeries/Procedures:: s/p excisional debridement of left foot wound - SUBSTANCE USE Smoking Status *Q: Current Every Day Smoker Tobacco Use Within Last Twelve Months: Cigarettes Second Hand Smoke Exposure: Yes Recreational Drug Use History: No - HOME MEDS Home Medications: Home Meds Metoprolol Tartrate 50 mg PO BID 12/10/16 [History] Omeprazole 40 mg PO DAILY 12/10/16 [History] amLODIPine Besylate [Amlodipine Besylate] 5 mg PO DAILY 12/10/16 [History] cloNIDine [Catapres] 0.1 mg PO BID 12/10/16 [History] levETIRAcetam [Keppra] 1,000 mg PO BID 12/10/16 [History] Acetaminophen/HYDROcodone [[place] 325-5 MG] 1 - 2 tab PO Q4H PRN #80 tablet 12/13 [Rx] Amitriptyline HCl 75 mg PO BEDTIME 12/17/16 [History] Ascorbate Calcium [Vitamin C] 500 mg PO DAILY 12/17/16 [History] Cyanocobalamin (Vitamin B-12) [Vitamin B12] 2,500 mcg PO DAILY 12/17/16 [History ] Ferrous Gluconate [Iron] 27 mg PO DAILY 12/17/16 [History] Potassium Gluconate 90 mg PO DAILY 12/17/16 [History] - CURRENT (IN HOUSE) MEDS Current Meds: Current Medications Hydrocodone Bitart/Acetaminophen ([place] 325-5 Mg) 1 - 2 tab PO Q4H PRN PRN Reason: Pain Lactated Ringer's (Ringers, Lactated) 1,000 mls @ 100 mls/hr IV ASDIRECTED ANNETTA
[~2017-01-23 11:43] MED LIST changes: -DAPTOmycin 500 MG in Sodium Chloride 0.9% 10 ML IVPUSH SCH; +ceFAZolin 2 GM in Premix Bag 1 BAG IV SCH
[2017-01-23] MEDS ORDERED: Lidocaine 2% 5 ML SDV ONE (12:14)
[2017-01-23] MEDS ORDERED: Ondansetron 4 MG/2 ML SDV ONE (12:14)
[2017-01-23] MEDS ORDERED: Midazolam 1 MG/ML 2 ML SDV ONE (12:15)
[2017-01-23] MEDS ORDERED: Propofol 200 MG/20 ML SDV ONE (12:15)
[2017-01-23] MEDS ORDERED: fentaNYL 250 MCG/5 ML SDV ONE ×2 (12:15→13:15)
--- NOTE | 2017-01-23 12:33 | PCM.PREANE ---
Preanesthetic Assessment - Procedure Proposed Procedure: left ankle debridement - Anesthesia/Transfusion/Family Hx Anesthesia History: Prior Anesthesia Without Reaction Family History of Anesthesia Reaction: No Transfusion History: No Prior Transfusion(s) Intubation History: Unknown - Review of Systems General: No Symptoms Pulmonary: Other (smoker) Cardiovascular: Other (HTN - on meds) Gastrointestinal: Other (GERD on daily meds) Neurological: Difficulty Walking (due to foot/ankle) Other: Reports: None - Physical Assessment NPO Status Date: 01/23/17 NPO Status Time: 08:00 (am meds) Height: 6 ft 3 in Weight: 198 lb ASA Class: 3 Mental Status: Alert & Oriented x3 Airway Class: Mallampati = 2 Dentition: Reports: Normal Dentition (irregular lowere teeth) Thyro-Mental Finger Breadths: 3 Mouth Opening Finger Breadths: 3 ROM/Head Extension: Full Lungs: Clear to Auscultation, Normal Respiratory Effort Cardiovascular: Regular Rate (skipped beats detected on A and pulse) - Allergies Allergies/Adverse Reactions: Allergies Allergy/AdvReac Type Severity Reaction Status Date / Time penicillin G Allergy Airway Verified 01/22/17 10:32 Tightness - Blood Blood Available: No Product(s) Available: None - Anesthesia Plan Pre-Op Medication Ordered: None Beta Efrain: Metoprolol Med Last Dose Date: 01/23/17 Med Last Dose Time: 08:00 - Acknowledgements Anesthesia Type Planned: General Anesthesia (OET vs LMA) Pt an Appropriate Candidate for the Planned Anesthesia: Yes Alternatives and Risks of Anesthesia Discussed w Pt/Guardian: Yes Pt/Guardian Understands and Agrees with Anesthesia Plan: Yes PreAnesthesia Questionnaire HEENT History: Reports: None Cardiovascular History: Reports: Hypertension Respiratory History: Reports: None Gastrointestinal History: Reports: GERD Genitourinary History: Reports: None Musculoskeletal History: Reports: Gout Other Musculoskeletal History: one episode of gout in feet 2 years ago Neurological History: Reports: Seizure Other Neuro History: had one seizure 2 years ago (? alcohol induced) Psychiatric History: Reports: Anxiety, Other (See Below) Other Psychiatric History: has insomnia, takes amitriptyline Endocrine/Metabolic History: Reports: None Hematologic History: Reports: None Immunologic History: Reports: None Oncologic (Cancer) History: Reports: None Dermatologic History: Reports: None - Infectious Disease History Infectious Disease History: Reports: Chicken Pox - Past Surgical History Head Surgeries/Procedures: Reports: None GI Surgical History: Reports: Colonoscopy, Hernia, Inguinal Musculoskeletal Surgical History: Reports: Other (See Below) Other Musculoskeletal Surgeries/Procedures:: s/p excisional debridement of left foot wound - SUBSTANCE USE Smoking Status *Q: Current Every Day Smoker Tobacco Use Within Last Twelve Months: Cigarettes Second Hand Smoke Exposure: Yes Recreational Drug Use History: No - HOME MEDS Home Medications: Home Meds Metoprolol Tartrate 50 mg PO BID 12/10/16 [History] Omeprazole 40 mg PO DAILY 12/10/16 [History] amLODIPine Besylate [Amlodipine Besylate] 5 mg PO DAILY 12/10/16 [History] cloNIDine [Catapres] 0.1 mg PO BID 12/10/16 [History] levETIRAcetam [Keppra] 1,000 mg PO BID 12/10/16 [History] Acetaminophen/HYDROcodone [[place] 325-5 MG] 1 - 2 tab PO Q4H PRN #80 tablet 12/13 [Rx] Amitriptyline HCl 75 mg PO BEDTIME 12/17/16 [History] Ascorbate Calcium [Vitamin C] 500 mg PO DAILY 12/17/16 [History] Cyanocobalamin (Vitamin B-12) [Vitamin B12] 2,500 mcg PO DAILY 12/17/16 [History ] Ferrous Gluconate [Iron] 27 mg PO DAILY 12/17/16 [History] Potassium Gluconate 90 mg PO DAILY 12/17/16 [History] - CURRENT (IN HOUSE) MEDS Current Meds: Current Medications Hydrocodone Bitart/Acetaminophen ([place] 325-5 Mg) 1 - 2 tab PO Q4H PRN PRN Reason: Pain Lactated Ringer's (Ringers, Lactated) 1,000 mls @ 100 mls/hr IV ASDIRECTED [facility] Cefazolin Sodium/Dextrose 2 gm (/ Premix) 50 mls @ 100 mls/hr IV ONCALL [facility] Discontinued Medications Fentanyl (Sublimaze) Confirm Administered Dose 250 mcg .ROUTE .STK-MED ONE Stop: 01/23/17 12:16 Lidocaine (Xylocaine-Mpf 2%) Confirm Administered Dose 5 ml .ROUTE .STK-MED ONE Stop: 01/23/17 12:15 Midazolam HCl (Versed 1 Mg/Ml) Confirm Administered Dose 2 mg .ROUTE .STK-MED ONE Stop: 01/23/17 12:16 Ondansetron HCl (Zofran) Confirm Administered Dose 4 mg .ROUTE .STK-MED ONE Stop: 01/23/17 12:15 Propofol (Diprivan 20 Ml) Confirm Administered Dose 200 mg .ROUTE .STK-MED ONE Stop: 01/23/17 12:16
[2017-01-23] MEDS ORDERED: Bupivacaine 25%/EPINEPHrine/PF 0 ML ONE (12:46)
--- NOTE | 2017-01-23 12:59 | PCM.OPNOTE ---
- General Post-Op/Procedure Note Date of Surgery/Procedure: 01/23/17 Operative Procedure(s): ED left foot to muscle with application of VAC Post-Op Diagnosis: wound left foot Anesthesia Technique: General LMA Primary Surgeon: Bea Rueda Client Reporting Associate: Preeti Anna in mLs: 5 Condition: Good
[2017-01-23] MEDS ORDERED: ceFAZolin 1 GM Vial ONE (13:11)
[2017-01-23] MEDS ORDERED: Sodium Chloride 0.9% 20 ML ONE (13:11)
[2017-01-23] MEDS ORDERED: HYDROmorphone 2 MG/ML Syringe ONE (13:25)
[2017-01-23] MEDS ORDERED: fentaNYL 100 MCG/2 ML SDV IVPUSH PRN (14:08)
--- NOTE | 2017-01-23 14:08 | PCM.POSTAN ---
POST ANESTHESIA ASSESSMENT - MENTAL STATUS Mental Status: Alert, Oriented - RESPIRATORY Respiratory Status: Respiratory Rate WNL, Airway Patent, O2 Saturation Stable - CARDIOVASCULAR CV Status: Pulse Rate WNL, Blood Pressure Stable - GASTROINTESTINAL GI Status: No Symptoms - PAIN Pain Score: 0 - POST OP HYDRATION Hydration Status: Adequate & Stable
--- NOTE | 2017-01-23 14:37 | PCM48HPAN ---
Post Anesthesia Note - EVALUATION WITHIN 48HRS OF ANESTHETIC Vital Signs in Normal Range: Yes Patient Participated in Evaluation: Yes Respiratory Function Stable: Yes Airway Patent: Yes Cardiovascular Function Stable: Yes Hydration Status Stable: Yes Pain Control Satisfactory: Yes Nausea and Vomiting Control Satisfactory: Yes Mental Status Recovered: Yes - COMMENTS/OBSERVATIONS Free Text/Narrative:: Doing well. Probably higher anesthetic requirement than expected.
[2017-01-23 15:59] VITALS: BP 114/78
--- NOTE | 2017-01-24 10:29 | OR ---
SURGEON: Bea Rueda MD DATE OF PROCEDURE: 01/23/2017 PREOPERATIVE DIAGNOSIS: Left foot wound, status post log washer injury. POSTOPERATIVE DIAGNOSES: Left foot wound, status post log washer injury. PROCEDURE: Excisional debridement, left foot wound to muscle with VAC placement. HINGING MACHINE OPERATOR: Preeti Anna PA-C. ANESTHESIA: General. ESTIMATED BLOOD LOSS: 5 mL. TOURNIQUET TIME: 0 minutes. COMPLICATIONS: None. DVT PROPHYLAXIS: Not indicated. IMPLANTS USED: None. BRIEF HISTORY: Benji is a 41-year-old male, who injured his left foot with a log washer. He has undergone debridement in the past with placement of a VAC dressing. He developed a tuft layer of fibrinous exudate over the wound, which did not allow for optimal healing with the VAC. I recommended surgical debridement. Risks and goals of the procedure were discussed with the patient and were documented preoperatively. He agreed to proceed. DESCRIPTION OF PROCEDURE: The patient was properly identified and brought to the operating room. He was transferred from the OR cart and placed on the operating table in supine position. General anesthesia was administered. After adequate anesthesia was obtained, a well-padded tourniquet was applied to the left lower extremity. The left lower extremity was then prepped in standard fashion using Betadine solution. It was then sterilely draped. A time-out was performed to ensure correct site and procedure. Preoperative antibiotics were held. The surgical site had been marked preoperatively. The wound was inspected. There was no surrounding erythema or foul smell to the wound. The fibrinous tissue was then debrided. The underlying tissue appeared clean. I did check the wound edges for tunneling. There was a small area that tunneled along the dorsum, approximately 5 mm. I did excise a portion of this. Final wound measurements measured 66 mm anterior to posterior with 38 mm medial to lateral and a 5 mm depth. 6 L of normal saline were then irrigated through the wound using a Pulsavac level designer. At the completion, the VAC dressing was placed. We did obtain good suction once the VAC was connected. An Abdias wrap was used to secure the VAC to the patient. He was awakened from his anesthetic and transferred back to the operating room cart. He was brought to recovery room in stable condition. All needle and sponge counts were correct. WILIAM / JESENIA /[id number]
== END 2017-01-23 15:00 | disposition home or self-care (01) ==
LOC: MW.SDS 11:43
PROVIDERS: ATTEND Orthopaedic Surgery
DX: S91.302A Unspecified open wound, left foot, initial encounter (principal); F17.210 Nicotine dependence, cigarettes, uncomplicated; F41.9 Anxiety disorder, unspecified; I10 Essential (primary) hypertension; K21.9 Gastro-esophageal reflux disease without esophagitis; M10.9 Gout, unspecified; G40.909 Epilepsy, unspecified, not intractable, without status epilepticus; Z79.899 Other long term (current) drug therapy; Z98.890 Other specified postprocedural states
CPT/HCPCS: 11043; 11046; 87070; 87075; 87205; J0690; J1170; J2250; J2405; J3010; 00400; J2704

== ENCOUNTER 2017-07-16 09:55 | Emergency (ER) | payer BC, OTHER ==
--- NOTE | 2017-07-16 10:12 | EDM.PDOC ---
<Jaylin Saini - Last Filed: 07/16/17 12:08> ED HPI GENERAL MEDICAL PROBLEM - General Stated Complaint: DIZZY AND NUMBNESS Time Seen by Provider: 07/16/17 10:05 - History of Present Illness INITIAL COMMENTS - FREE TEXT/NARRATIVE: This is Dr. Saini dictating an addendum note has supervising physician on this case. I personally seen and evaluated the patient and agree with the above. In our dialogue with Dr. Mohamud she specifically stated that it would be great if we could get the imaging today but if we could not she felt comfortable with outpatient. We have tried very hard to try to get him into the schedule today but are unable and he states understanding. We will get him an appointment tomorrow at 1 PM and he will follow-up with Dr. Mohamud. Cautions on reasons to return to the ED were discussed with the patient. Please note that my personal evaluation this patient he is very vague about his symptoms and needs to be directed to get any specific answers. The clinical findings are not particularly significant either. His workup is also negative. - Related Data Allergies Allergy/AdvReac Type Severity Reaction Status Date / Time penicillin G Allergy Severe Airway Verified 07/16/17 10:02 Tightness Home Meds: Home Meds Metoprolol Tartrate 50 mg PO BID 12/10/16 [History] Omeprazole 40 mg PO DAILY 12/10/16 [History] amLODIPine Besylate [Amlodipine Besylate] 5 mg PO DAILY 12/10/16 [History] Amitriptyline HCl 75 mg PO BEDTIME 12/17/16 [History] Ascorbate Calcium [Vitamin C] 500 mg PO DAILY 12/17/16 [History] Cyanocobalamin (Vitamin B-12) [Vitamin B12] 2,500 mcg PO DAILY 12/17/16 [History ] Ferrous Gluconate [Iron] 27 mg PO DAILY 12/17/16 [History] Potassium Gluconate 90 mg PO DAILY 12/17/16 [History] Naproxen 500 mg PO BID 07/16/17 [History] Course - Vital Signs Last Recorded V/S: Last Vital Signs Temp 97.7 F 07/16/17 10:12 Pulse 51 L 07/16/17 12:13 Resp 18 07/16/17 12:13 BP 147/84 H 07/16/17 12:13 Pulse Ox 99 07/16/17 12:13 Orthostatic Blood Pressure [ 152/94 Standing] Orthostatic Blood Pressure [ 148/94 Sitting] Orthostatic Blood Pressure [ 132/87 Supine] - Orders/Labs/Meds Orders: Active Orders 24 hr Category Date Time Status EKG Documentation Completion [RC] STAT Care 07/16/17 10:06 Active Orthostatic Vital Signs [RC] ASDIRECTED Care 07/16/17 10:07 Active UA W/MICROSCOPIC [URIN] Stat Lab 07/16/17 10:29 Ordered Labs: Laboratory Tests 07/16/17 07/16/17 07/16/17 Range/Units 10:26 10:26 10:29 WBC 12.72 H (4.0-11.0) K/uL RBC 4.32 L (4.50-5.90) M/uL Hgb 12.0 L (13.0-17.0) g/dL Hct 36.6 L (38.0-50.0) % MCV 84.7 (80.0-98.0) fL MCH 27.8 (27.0-32.0) pg MCHC 32.8 (31.0-37.0) g/dL RDW Std Deviation 39.9 (28.0-62.0) fl RDW Coeff of Jasmina 13 (11.0-15.0) % Plt Count 260 (150-400) K/uL MPV 9.70 (7.40-12.00) fL Neut % (Auto) 71.3 (48.0-80.0) % Lymph % (Auto) 22.3 (16.0-40.0) % [place] % (Auto) 4.6 (0.0-15.0) % Eos % (Auto) 1.5 (0.0-7.0) % Baso % (Auto) 0.3 (0.0-1.5) % Neut # (Auto) 9.1 H (1.4-5.7) K/uL Lymph # (Auto) 2.8 H (0.6-2.4) K/uL [place] # (Auto) 0.6 (0.0-0.8) K/uL Eos # (Auto) 0.2 (0.0-0.7) K/uL Baso # (Auto) 0.0 (0.0-0.1) K/uL Nucleated RBC % 0.0 /100WBC Nucleated RBCs # 0 K/uL Sodium 139 (136-148) mmol/L Potassium 4.2 (3.5-5.1) mmol/L Chloride 107 (98-107) mmol/L Carbon Dioxide 23.0 (21.0-32.0) mmol/L BUN 16 (7.0-18.0) mg/dL Creatinine 1.7 H (0.8-1.3) mg/dL Est Cr Clr Drug Dosing 65.14 mL/min Estimated GFR (MDRD) 44.2 ml/min Glucose 114 H (74-106) mg/dL Calcium 9.7 (8.5-10.1) mg/dL Total Bilirubin 0.4 (0.2-1.0) mg/dL AST 17 (15-37) IU/L ALT 28 (14-63) IU/L Alkaline Phosphatase 70 (46-116) U/L Troponin I < 0.050 (0.000-0.056) ng/mL Total Protein 7.1 (6.4-8.2) g/dL Albumin 3.7 (3.4-5.0) g/dL Globulin 3.4 (2.0-3.5) g/dL Albumin/Globulin Ratio 1.1 L (1.3-2.8) Urine Color YELLOW Urine Appearance CLEAR Urine pH 5.5 (5.0-8.0) Ur Specific [place] 1.025 (1.001-1.035) Urine Protein 100 (NEGATIVE) mg/dL Urine Glucose (UA) NEGATIVE (NEGATIVE) mg/dL Urine Ketones NEGATIVE (NEGATIVE) mg/dL Urine Occult Blood MODERATE (NEGATIVE) Urine Nitrite NEGATIVE (NEGATIVE) Urine Bilirubin NEGATIVE (NEGATIVE) Urine Urobilinogen 0.2 (<2.0) EU/dL Ur Leukocyte Esterase NEGATIVE (NEGATIVE) Urine RBC 2-5 (0-2/HPF) Urine WBC 0-1 (0-5/HPF) Ur Epithelial Cells RARE (NONE-FEW) Urine Bacteria RARE (NEGATIVE) Meds: Medications Discontinued Medications Generic Name Dose Route Start Last Admin Trade Name Freq PRN Reason Stop Dose Admin Sodium Chloride 1,000 mls @ 999 mls/hr 07/16/17 10:18 07/16/17 10:33 Normal Saline IV 07/16/17 11:18 999 mls/hr STAT ONE Administration Ondansetron HCl 4 mg 07/16/17 10:18 07/16/17 10:33 Zofran IVPUSH 07/16/17 10:19 4 mg ONETIME ONE Administration Departure - Departure Disposition: Home, Self-Care 01 Clinical Impression: Dizziness, Paresthesia of arm, Near syncope - Discharge Information Instructions: Dizziness, [id number] Referrals: PCP,Unknown [Primary Care Provider] - Additional Instructions: The following information is given to patients seen in the emergency department who are being discharged to home. This information is to outline your options for follow-up care. We provide all patients seen in our emergency department with a follow-up referral. The need for follow-up, as well as the timing and circumstances, are variable depending upon the specifics of your emergency department visit. If you don't have a primary care physician on staff, we will provide you with a referral. We always advise you to contact your personal physician following an emergency department visit to inform them of the circumstance of the visit and for follow-up with them and/or the need for any referrals to a consulting specialist. The emergency department will also refer you to a specialist when appropriate. This referral assures that you have the opportunity for follow-up care with a specialist. All of these measure are taken in an effort to provide you with optimal care, which includes your follow-up. Under all circumstances we always encourage you to contact your private physician who remains a resource for coordinating your care. When calling for follow-up care, please make the office aware that this follow-up is from your recent emergency room visit. If for any reason you are refused follow-up, please contact the [facility] Emergency Department at and asked to speak to the emergency department charge nurse. [facility] [address] [place] [id number] 1. You have an appointment at our Radiology Department for an MRI/MRA of your brain and cervical spine at 12:15pm. Please attend this appointment. 2. If your symptoms should worsen or new symptoms develop, please call 911 or return to the Emergency Department. 3. Follow up with Neurology or your Primary Care provider in the next couple days. - My Orders Last 24 Hours: My Active Orders 07/16/17 10:06 EKG Documentation Completion [RC] STAT 07/16/17 10:07 Orthostatic Vital Signs [RC] ASDIRECTED 07/16/17 10:29 UA W/MICROSCOPIC [URIN] Stat - Assessment/Plan Last 24 Hours: My Active Orders 07/16/17 10:06 EKG Documentation Completion [RC] STAT 07/16/17 10:07 Orthostatic Vital Signs [RC] ASDIRECTED 07/16/17 10:29 UA W/MICROSCOPIC [URIN] Stat <Judy Fonseca E - Last Filed: 07/16/17 12:55> ED HPI GENERAL MEDICAL PROBLEM - General Source of Information: Reports: Patient History Limitations: Reports: No Limitations - History of Present Illness INITIAL COMMENTS - FREE TEXT/NARRATIVE: HISTORY AND PHYSICAL: History of present illness: Patient is a 42-year-old male who presents to the emergency room with complaints of dizziness and near syncope and bilateral arm tingling. He states these symptoms started yesterday afternoon. He denies any recent falls, injuries or trauma. States his symptoms are worse with any type of head movement. When he turns his head (extremely) to look over his shoulder he says he feels near syncopal and nauseated. Reports when he is moving or quickly moving his head he does feel unsteady on his feet and has dizziness. While sitting at rest or moving his head slowly he is asymptomatic. Intermittently he does have numbness and tingling to bilateral upper extremities. He denies any fever, chills, chest pain or shortness of breath. He denies any abdominal pain, nausea, vomiting or constipation. Reports he has had "a few" loose stools over the last 24 hours. Patient has a past medical history of hypertension and does take antihypertensive medications. Currently and every day smoker. Denies any alcohol or drug abuse. Review of systems: As per history of present illness and below otherwise all systems reviewed and negative. Past medical history: As per history of present illness and as reviewed below otherwise noncontributory. Surgical history: As per history of present illness and as reviewed below otherwise noncontributory. Social history: No reported history of drug or alcohol abuse. Family history: As per history of present illness and as reviewed below otherwise noncontributory. Physical exam: General: Well-developed and well-nourished 42-year-old male. Alert and oriented. Nontoxic appearing and in no acute distress. HEENT: Atraumatic, normocephalic, pupils equal and reactive bilaterally, negative for conjunctival pallor or scleral icterus, jerky eye movements noted, all gary of cardinal gaze intact, mucous membranes moist, throat clear, neck supple, nontender, trachea midline. TMs normal bilaterally. Poor dental hygiene noted. No drooling or trismus noted. No meningeal signs Lungs: Clear to auscultation, breath sounds equal bilaterally, chest nontender. Heart: S1S2, regular rate and rhythm without overt murmur Abdomen: Soft, nondistended, nontender. Negative for masses or hepatosplenomegaly. Negative for costovertebral tenderness. Pelvis: Stable nontender. Genitourinary: Deferred. Rectal: Deferred. Skin: Intact, warm, dry. No lesions or rashes noted. Extremities: Atraumatic, negative for cords or calf pain. Neurovascular unremarkable. Neuro: Awake, alert, oriented. Cranial nerves II through XII unremarkable. Cerebellum unremarkable. Motor and sensory unremarkable throughout. Exam nonfocal. Notes: Patient is very nonspecific with his current complaint. He does have a history of hypertension and only a cigarette smoker. Does not appear to be in any acute distress but would like to do a full lab workup and consult neurology. 1022: Dr. Lien Mohamud (Neurologist circulation tender) was consulted on this case. Due to the patient's vague symptoms and unable to pinpoint where problem with his case, she recommended an MRI/MRA of the brain and C-spine. She did note that if we were able to get the patient in for MRI/MRA today, he could do outpatient test. Our radiology services is currently unable to get the patient in for MRI/MRA of the brain/C-spine today. They are able to make him an appointment for tomorrow at 1 PM. Will have the patient follow-up as an outpatient for these imaging. Patient's vital signs are stable. Lab work is currently unremarkable. Head CT is normal. Heart with the patient. He will follow-up tomorrow with radiology for his MRI/MRA. We discussed signs and symptoms that would prompt him to come back to the emergency room. He states he does feel improved and declines any nausea at this time. He denies any further questions at this time. Diagnostics: CBC, CMP, EKG, chest x-ray, orthostatic vital signs, troponin, MRA/MRI brain/C- spine Therapeutics: IV fluid, Zofran Impression: Dizziness Near syncope Paresthesia of bilateral upper extremities Plan: 1. You have an appointment at our Radiology Department for an MRI/MRA of your brain and cervical spine at 12:15pm. Please attend this appointment. 2. If your symptoms should worsen or new symptoms develop, please call 911 or return to the Emergency Department. 3. Follow up with Neurology or your Primary Care provider in the next couple days. Definitive disposition and diagnosis as appropriate pending reevaluation and review of above. Duration: Day(s): Location: Reports: Head, Generalized Past Medical History HEENT History: Reports: None Cardiovascular History: Reports: Hypertension Respiratory History: Reports: None Gastrointestinal History: Reports: GERD Genitourinary History: Reports: None Musculoskeletal History: Reports: Gout Other Musculoskeletal History: one episode of gout in feet 2 years ago Neurological History: Reports: Seizure Other Neuro History: had one seizure 2 years ago (? alcohol induced) Psychiatric History: Reports: Anxiety, Other (See Below) Other Psychiatric History: has insomnia, takes amitriptyline Endocrine/Metabolic History: Reports: None Hematologic History: Reports: None Immunologic History: Reports: None Oncologic (Cancer) History: Reports: None Dermatologic History: Reports: None - Infectious Disease History Infectious Disease History: Reports: Chicken Pox - Past Surgical History Head Surgeries/Procedures: Reports: None GI Surgical History: Reports: Colonoscopy, Hernia, Inguinal Musculoskeletal Surgical History: Reports: Other (See Below) Other Musculoskeletal Surgeries/Procedures:: s/p excisional debridement of left foot wound Social & Family History - Family History Family Medical History: Noncontributory - Tobacco Use Smoking Status *Q: Current Every Day Smoker Years of Tobacco use: 30 Packs/Tins Daily: 0.5 Used Tobacco, but Quit: No Second Hand Smoke Exposure: Yes - Caffeine Use Caffeine Use: Reports: Coffee, Soda, Tea - Recreational Drug Use Recreational Drug Use: No Drug Use in Last 12 Months: No ED ROS GENERAL - Review of Systems Review Of Systems: ROS reveals no pertinent complaints other than HPI. ED EXAM, GENERAL - Physical Exam Exam: See Below (See dictation) Course - Vital Signs Last Recorded V/S: Last Vital Signs Temp 97.7 F 07/16/17 10:12 Pulse 51 L 07/16/17 12:13 Resp 18 07/16/17 12:13 BP 147/84 H 07/16/17 12:13 Pulse Ox 99 07/16/17 12:13 Orthostatic Blood Pressure [ 152/94 Standing] Orthostatic Blood Pressure [ 148/94 Sitting] Orthostatic Blood Pressure [ 132/87 Supine] - Orders/Labs/Meds Labs: Laboratory Tests 07/16/17 07/16/17 07/16/17 Range/Units 10:26 10:26 10:29 WBC 12.72 H (4.0-11.0) K/uL RBC 4.32 L (4.50-5.90) M/uL Hgb 12.0 L (13.0-17.0) g/dL Hct 36.6 L (38.0-50.0) % MCV 84.7 (80.0-98.0) fL MCH 27.8 (27.0-32.0) pg MCHC 32.8 (31.0-37.0) g/dL RDW Std Deviation 39.9 (28.0-62.0) fl RDW Coeff of Jasmina 13 (11.0-15.0) % Plt Count 260 (150-400) K/uL MPV 9.70 (7.40-12.00) fL Neut % (Auto) 71.3 (48.0-80.0) % Lymph % (Auto) 22.3 (16.0-40.0) % [place] % (Auto) 4.6 (0.0-15.0) % Eos % (Auto) 1.5 (0.0-7.0) % Baso % (Auto) 0.3 (0.0-1.5) % Neut # (Auto) 9.1 H (1.4-5.7) K/uL Lymph # (Auto) 2.8 H (0.6-2.4) K/uL [place] # (Auto) 0.6 (0.0-0.8) K/uL Eos # (Auto) 0.2 (0.0-0.7) K/uL Baso # (Auto) 0.0 (0.0-0.1) K/uL Nucleated RBC % 0.0 /100WBC Nucleated RBCs # 0 K/uL Sodium 139 (136-148) mmol/L Potassium 4.2 (3.5-5.1) mmol/L Chloride 107 (98-107) mmol/L Carbon Dioxide 23.0 (21.0-32.0) mmol/L BUN 16 (7.0-18.0) mg/dL Creatinine 1.7 H (0.8-1.3) mg/dL Est Cr Clr Drug Dosing 65.14 mL/min Estimated GFR (MDRD) 44.2 ml/min Glucose 114 H (74-106) mg/dL Calcium 9.7 (8.5-10.1) mg/dL Total Bilirubin 0.4 (0.2-1.0) mg/dL AST 17 (15-37) IU/L ALT 28 (14-63) IU/L Alkaline Phosphatase 70 (46-116) U/L Troponin I < 0.050 (0.000-0.056) ng/mL Total Protein 7.1 (6.4-8.2) g/dL Albumin 3.7 (3.4-5.0) g/dL Globulin 3.4 (2.0-3.5) g/dL Albumin/Globulin Ratio 1.1 L (1.3-2.8) Urine Color YELLOW Urine Appearance CLEAR Urine pH 5.5 (5.0-8.0) Ur Specific [place] 1.025 (1.001-1.035) Urine Protein 100 (NEGATIVE) mg/dL Urine Glucose (UA) NEGATIVE (NEGATIVE) mg/dL Urine Ketones NEGATIVE (NEGATIVE) mg/dL Urine Occult Blood MODERATE (NEGATIVE) Urine Nitrite NEGATIVE (NEGATIVE) Urine Bilirubin NEGATIVE (NEGATIVE) Urine Urobilinogen 0.2 (<2.0) EU/dL Ur Leukocyte Esterase NEGATIVE (NEGATIVE) Urine RBC 2-5 (0-2/HPF) Urine WBC 0-1 (0-5/HPF) Ur Epithelial Cells RARE (NONE-FEW) Urine Bacteria RARE (NEGATIVE) Meds: Medications Discontinued Medications Generic Name Dose Route Start Last Admin Trade Name Freq PRN Reason Stop Dose Admin Sodium Chloride 1,000 mls @ 999 mls/hr 07/16/17 10:18 07/16/17 10:33 Normal Saline IV 07/16/17 11:18 999 mls/hr STAT ONE Administration Ondansetron HCl 4 mg 07/16/17 10:18 07/16/17 10:33 Zofran IVPUSH 07/16/17 10:19 4 mg ONETIME ONE Administration Departure - Departure Time of Disposition: 12:52 Condition: Good
[2017-07-16] MEDS ORDERED: Ondansetron 4 MG/2 ML SDV IVPUSH ONE (10:18)
[2017-07-16] MEDS ORDERED: Sodium Chloride 0.9% 1,000 ML IV ONE (10:18)
[2017-07-16 11:07] LABS: CHLORIDE,CL 107 mmol/L (98-107); SODIUM,NA 139 mmol/L (136-148)
--- NOTE | 2017-07-16 12:50 | CT ---
EXAMINATION: Non contrast CT head. Coronal and sagittal reformats. HISTORY: Dizziness FINDINGS: No evidence of intra or extra axial hemorrhage, mass, midline shift, hydrocephalus or edema. No hypoattenuation changes in the major vascular territories to suggest acute infarct. No abnormal intracranial calcifications are detected. No evidence of substantial vascular calcificat ions. Paranasal sinuses and mastoid air cells are well aerated without substantial findings. Orbits and gl obes are symmetric. Pituitary fossa appears unremarkable. Calvarium is intact. No evidence of skull fracture. IMPRESSION: No acute intracranial findings.
[2017-07-16 13:51] VITALS: BP 185/94
== END 2017-07-16 12:58 | disposition home or self-care (01) ==
LOC: MW.ED 09:55
DX: R55 Syncope and collapse (principal); R20.2 Paresthesia of skin; I10 Essential (primary) hypertension; F17.210 Nicotine dependence, cigarettes, uncomplicated; Z88.0 Allergy status to penicillin; Z79.899 Other long term (current) drug therapy
CPT/HCPCS: 36415; 70450; 80053; 81001; 84484; 85025; 93005; 96361; 96374; 99284; J2405; J7040

== ENCOUNTER 2018-05-19 09:39 | Emergency (ER) | payer BC, OTHER ==
--- NOTE | 2018-05-19 09:57 | EDM.PDOC ---
ED HPI GENERAL MEDICAL PROBLEM - General Chief Complaint: Lower Extremity Injury/Pain Stated Complaint: LEG PAIN Time Seen by Provider: 05/19/18 09:46 - History of Present Illness INITIAL COMMENTS - FREE TEXT/NARRATIVE: HISTORY AND PHYSICAL: History of present illness: Patient's 42-year-old white male presents with concern of left lower extremity pain this is in his left buttock radiating down his left lower extremity he denies any recent trauma or other concern. He denies history of sciatic patient denies back pain denies numbness weakness incontinence or retention bowel or bladder Review of systems: As per history of present illness and below otherwise all systems reviewed and negative. Past medical history: As per history of present illness and as reviewed below otherwise noncontributory. Surgical history: As per history of present illness and as reviewed below otherwise noncontributory. Social history: No reported history of drug or alcohol abuse. Family history: As per history of present illness and as reviewed below otherwise noncontributory. Physical exam: HEENT: Atraumatic, normocephalic, pupils reactive, negative for conjunctival pallor or scleral icterus, mucous membranes moist, throat clear, neck supple, nontender, trachea midline. Lungs: Clear to auscultation, breath sounds equal bilaterally, chest nontender. Heart: S1S2, regular, negative for clicks, rubs, or JVD. Abdomen: Soft, nondistended, nontender. Negative for masses or hepatosplenomegaly. Negative for costovertebral tenderness. Pelvis: Stable nontender. Genitourinary: Deferred. Rectal: Deferred. Extremities: Atraumatic, negative for cords or calf pain. Neurovascular unremarkable. Neuro: Awake, alert, oriented. Cranial nerves II through XII unremarkable. Cerebellum unremarkable. Motor and sensory unremarkable throughout. Exam nonfocal. Back: Patient has pain over sciatic notch to palpation motor and sensory are otherwise unremarkable he is able stand on his toes back on his heels Diagnostics: Deferred Therapeutics: None Impression: #1 sciatica Definitive disposition and diagnosis as appropriate pending reevaluation and review of above. left leg Pain Score (Numeric/FACES): 9 - Related Data Allergies Allergy/AdvReac Type Severity Reaction Status Date / Time penicillin G Allergy Severe Airway Verified 07/16/17 10:02 Tightness Home Meds: Home Meds . [No Known Home Meds] 05/19/18 [History] Past Medical History HEENT History: Reports: None Cardiovascular History: Reports: Hypertension Respiratory History: Reports: None Gastrointestinal History: Reports: GERD Genitourinary History: Reports: None Musculoskeletal History: Reports: Gout Other Musculoskeletal History: one episode of gout in feet 2 years ago Neurological History: Reports: Seizure Other Neuro History: had one seizure 2 years ago (? alcohol induced) Psychiatric History: Reports: Anxiety, Other (See Below) Other Psychiatric History: has insomnia, takes amitriptyline Endocrine/Metabolic History: Reports: None Hematologic History: Reports: None Immunologic History: Reports: None Oncologic (Cancer) History: Reports: None Dermatologic History: Reports: None - Infectious Disease History Infectious Disease History: Reports: Chicken Pox - Past Surgical History Head Surgeries/Procedures: Reports: None GI Surgical History: Reports: Colonoscopy, Hernia, Inguinal Musculoskeletal Surgical History: Reports: Other (See Below) Other Musculoskeletal Surgeries/Procedures:: s/p excisional debridement of left foot wound Social & Family History - Family History Family Medical History: Noncontributory - Caffeine Use Caffeine Use: Reports: Coffee, Soda, Tea Review of Systems - Review of Systems Review Of Systems: ROS reveals no pertinent complaints other than HPI. ED EXAM, GENERAL - Physical Exam Exam: See Below (See dictation) Course - Vital Signs Last Recorded V/S: Last Vital Signs Temp 36.2 C 05/19/18 09:50 Pulse 82 05/19/18 09:50 Resp 16 05/19/18 09:50 BP 196/107 H 05/19/18 09:50 Pulse Ox 97 05/19/18 09:50 Departure - Departure Time of Disposition: 09:55 Disposition: Home, Self-Care 01 Condition: Good Clinical Impression: Sciatic nerve pain - Discharge Information Referrals: PCP,None [Primary Care Provider] - Additional Instructions: The following information is given to patients seen in the emergency department who are being discharged to home. This information is to outline your options for follow-up care. We provide all patients seen in our emergency department with a follow-up referral. The need for follow-up, as well as the timing and circumstances, are variable depending upon the specifics of your emergency department visit. If you don't have a primary care physician on staff, we will provide you with a referral. We always advise you to contact your personal physician following an emergency department visit to inform them of the circumstance of the visit and for follow-up with them and/or the need for any referrals to a consulting specialist. The emergency department will also refer you to a specialist when appropriate. This referral assures that you have the opportunity for followup care with a specialist. All of these measure are taken in an effort to provide you with optimal care, which includes your followup. Under all circumstances we always encourage you to contact your private physician who remains a resource for coordinating your care. When calling for followup care, please make the office aware that this follow-up is from your recent emergency room visit. If for any reason you are refused follow-up, please contact the [facility] emergency department at and asked to speak to the emergency department charge nurse. [facility]PHAN[facility] [address] [place] [id number] Diclofenac Medrol as prescribed follow-up clinic above for reevaluation and repeat blood pressure []
[2018-05-19 10:57] VITALS: BP 157/97
== END 2018-05-19 10:17 | disposition home or self-care (01) ==
LOC: MW.ED 09:39
DX: M54.32 Sciatica, left side (principal); I10 Essential (primary) hypertension; Z88.0 Allergy status to penicillin
CPT/HCPCS: 99283

== ENCOUNTER 2020-01-14 13:29 | Emergency (ER) | payer BC, OTHER ==
--- NOTE | 2020-01-14 14:13 | EDM.PDOC ---
<Christopher Felipe - Last Filed: 01/14/20 18:49> ED HPI GENERAL MEDICAL PROBLEM - General Chief Complaint: General Stated Complaint: POSSIBLE LIVER COMPLICATIONS Time Seen by Provider: 01/14/20 15:00 Source of Information: Reports: Patient, Old Records History Limitations: Reports: No Limitations - History of Present Illness INITIAL COMMENTS - FREE TEXT/NARRATIVE: This is a 44-year-old male with no pertinent past medical history presenting from the clinic for work-up of abnormal labs. I spoke with the physician Dr. Godwin at the outpatient clinic who called, related history of shortness of breath, headache, diarrhea, fatigue, night sweats. The clinic obtain labs, which showed worsening creatinine from 1.5-4.7, LFTs were reportedly elevated in the 200s. They obtained a 1 view chest x-ray which the physician stated was normal. He was then directed to the emergency department for further evaluation. Labs show mild normocytic anemia with hemoglobin of 11.9, mild thrombocytopenia, normal platelet count. Metabolic panel shows hyperglycemia with glucose of 210, creatinine of 4.7, BUN of 26, total bilirubin of 2.8, ALT 187, AST of 230, alkaline phosphatase 283, GFR of 13.5. Here in the emergency department, the patient complains of a 3-week history of gradually worsening shortness of breath, fatigue, night sweats. He states that he has a smoker's cough and states that that is not particularly worse than usual. He also reports nausea, vomiting, and watery diarrhea. No known international travel or sick contacts. Patient was tested for COVID-19 earlier today but this has not resulted. No prior history of renal disease, kidney stones, prostate problems or prostate surgery. No known history of hepatitis, cirrhosis, liver disease, no history of IV drug use. ROS: A 10-point review of systems was negative, except as noted in the HPI (or in the ROS section of this note). Past medical history: Reviewed, no additional pertinent history. Surgical history: Reviewed in system, no additional pertinent history. Social history: Reviewed in system, no additional pertinent history. Family history: Reviewed in system, no additional pertinent history. PHYSICAL EXAM Vital signs reviewed. Nursing notes reviewed. Constitutional: Awake, alert, non-distressed. Head: Normocephalic, atraumatic. Eyes: EOMI, conjunctiva normal, no discharge, no scleral icterus. Ears, Nose, Throat: External ears and nose normal, moist oral mucosa. Cardiovascular: Tachycardic, 2+ radial pulse, capillary refill less than 2 seconds. Pulmonary: normal work of breathing, no accessory muscle use. Abdomen/GI: Soft, nontender, nondistended, no guarding or rigidity, no masses. Musculoskeletal: No deformities. Integumentary: Appropriate color for ethnicity, warm, dry, no pallor or jaundice, no rash. Neurologic: Alert, answering questions appropriately, normal speech, no facial droop, moving all extremities well. Psychiatric: Appropriate mood and affect, normal thought process. lower back Pain Score (Numeric/FACES): 4 - Related Data Allergies Allergy/AdvReac Type Severity Reaction Status Date / Time penicillin G Allergy Severe Airway Verified 07/16/17 10:02 Tightness Penicillins Allergy Airway Verified 01/14/20 14:00 Tightness Home Meds: Home Meds . [No Known Home Meds] 05/19/18 [History] Past Medical History HEENT History: Reports: None Cardiovascular History: Reports: Hypertension Respiratory History: Reports: None Gastrointestinal History: Reports: GERD Genitourinary History: Reports: None Musculoskeletal History: Reports: Gout Other Musculoskeletal History: one episode of gout in feet 2 years ago Neurological History: Reports: Seizure Other Neuro History: had one seizure 2 years ago (? alcohol induced) Psychiatric History: Reports: Anxiety, Other (See Below) Other Psychiatric History: has insomnia, takes amitriptyline Endocrine/Metabolic History: Reports: None Hematologic History: Reports: None Immunologic History: Reports: None Oncologic (Cancer) History: Reports: None Dermatologic History: Reports: None - Infectious Disease History Infectious Disease History: Reports: Chicken Pox, Measles - Past Surgical History Head Surgeries/Procedures: Reports: None GI Surgical History: Reports: Colonoscopy, Hernia, Inguinal Musculoskeletal Surgical History: Reports: Other (See Below) Other Musculoskeletal Surgeries/Procedures:: s/p excisional debridement of left foot wound Social & Family History - Family History Family Medical History: Noncontributory - Tobacco Use Tobacco Use Status *Q: Current Every Day Tobacco User Years of Tobacco use: 13 Packs/Tins Daily: 1 - Caffeine Use Caffeine Use: Reports: Coffee, Soda, Tea - Alcohol Use Days Per Week of Alcohol Use: 2 Number of Drinks Per Day: 6 Total Drinks Per Week: 12 - Recreational Drug Use Recreational Drug Use: No ED ROS GENERAL - Review of Systems Review Of Systems: See Below ED EXAM, GENERAL - Physical Exam Exam: See Below Course - Vital Signs Text/Narrative:: 44-year-old male presenting with fatigue, exertional dyspnea, night sweats, abnormal labs. Patient tachycardic, otherwise hemodynamically stable, afebrile, well-appearing, looks nontoxic. Differential diagnosis includes but is not limited to: Prerenal renal failure, intrinsic renal failure, obstructive uropathy, kidney stone, acute hepatitis, rhabdomyolysis, renal artery thrombosis or renal venous thrombosis, interstitial nephritis, nephrotic syndrome, and many others. 3:25 PM: I reviewed the labs from the clinic. Labs here show normal INR, CK normal, troponin negative, lipase mildly elevated at 440. Awaiting urinalysis. 3:38 PM: Urinalysis shows 100 protein, negative glucose and ketones, small blood, small bilirubin, negative nitrites, negative leukocyte esterase. Awaiting CT imaging of abdomen/pelvis and renal ultrasound study. 5:09 PM: Renal ultrasound demonstrates echogenic renal parenchyma consistent with chronic renal disease but no hydronephrosis. Incidentally, the gallbladder was distended up to 12 cm without gallbladder wall thickening. We are waiting for radiologist read of the abdomen/pelvis CT. COVID test is negative. 1850: CT shows renal cysts, likely gallbladder hydrops, no evidence of kidney stones or obstructive uropathy. Patient will need to be admitted to the hospit al for further work-up and treatment of his renal failure as he is on the border of needing dialysis. No medical surgical beds in [facility], [place]. We were able to get acceptance to transfer to the ED in [place], [place]. Patient will be transferred there by ambulance. We are awaiting ambulance transport at shift change. Signed out in person to my colleague Dr. Ricci awaiting EMS arrival. Departure - Departure Time of Disposition: 18:50 Disposition: DC/Tfer to Acute Hospital 02 Condition: Good Clinical Impression: Acute kidney injury - Discharge Information Referrals: PCP,None [Primary Care Provider] - Forms: ED Department Discharge Sepsis Event Note (ED) - Evaluation Sepsis Screening Result: No Definite Risk <Sukh Ricci - Last Filed: 01/15/20 01:21> Course - Vital Signs Last Recorded V/S: Last Vital Signs Temp 97.3 F 01/14/20 18:49 Pulse 79 01/14/20 19:14 Resp 18 01/14/20 19:14 BP 156/105 H 01/14/20 19:14 Pulse Ox 100 01/14/20 19:14 - Orders/Labs/Meds Orders: Active Orders 24 hr Category Date Time Status Saline Lock Insert [OM.PC] Stat Oth 01/14/20 14:24 Ordered Labs: Laboratory Tests 01/14/20 01/14/20 01/14/20 Range/Units 14:43 14:43 14:56 INR 1.30 Creatine Kinase 110 (26-308) U/L Troponin I < 0.050 (0.000-0.056) ng/mL Lipase 440 H (73-393) U/L Urine Color Urine Appearance Urine pH (5.0-8.0) Ur Specific [place] (1.001-1.035) Urine Protein (NEGATIVE) mg/dL Urine Glucose (UA) (NEGATIVE) mg/dL Urine Ketones (NEGATIVE) mg/dL Urine Occult Blood (NEGATIVE) Urine Nitrite (NEGATIVE) Urine Bilirubin (NEGATIVE) Urine Ictotest Urine Urobilinogen (<2.0) EU/dL Ur Leukocyte Esterase (NEGATIVE) Urine RBC (0-2/HPF) Urine WBC (0-5/HPF) Ur Epithelial Cells (NONE-FEW) Amorphous Sediment (NEGATIVE) Urine Bacteria (NEGATIVE) Urine Mucus (NONE-MOD) Ur Random Sodium (40.0-220.0) mmol/L SARS-CoV-2 RNA (CIRO) NEGATIVE (NEGATIVE) 01/14/20 01/14/20 Range/Units 14:58 14:58 INR Creatine Kinase (26-308) U/L Troponin I (0.000-0.056) ng/mL Lipase (73-393) U/L Urine Color YELLOW Urine Appearance CLEAR Urine pH 6.0 (5.0-8.0) Ur Specific [place] 1.025 (1.001-1.035) Urine Protein 100 H (NEGATIVE) mg/dL Urine Glucose (UA) NEGATIVE (NEGATIVE) mg/dL Urine Ketones NEGATIVE (NEGATIVE) mg/dL Urine Occult Blood SMALL H (NEGATIVE) Urine Nitrite NEGATIVE (NEGATIVE) Urine Bilirubin SMALL H (NEGATIVE) Urine Ictotest NEGATIVE Urine Urobilinogen 1.0 (<2.0) EU/dL Ur Leukocyte Esterase NEGATIVE (NEGATIVE) Urine RBC 2-3 (0-2/HPF) Urine WBC 1-2 (0-5/HPF) Ur Epithelial Cells OCCASIONAL (NONE-FEW) Amorphous Sediment RARE (NEGATIVE) Urine Bacteria FEW (NEGATIVE) Urine Mucus RARE (NONE-MOD) Ur Random Sodium 28.0 L (40.0-220.0) mmol/L SARS-CoV-2 RNA (CIRO) (NEGATIVE) Meds: Medications Discontinued Medications Generic Name Dose Route Start Last Admin Trade Name Freq PRN Reason Stop Dose Admin Lactated Ringer's 1,000 mls @ 999 mls/hr 01/14/20 14:24 01/14/20 14:56 Ringers, Lactated IV 01/14/20 15:24 999 mls/hr .BOLUS ONE Administration Sodium Chloride 10 ml 01/14/20 14:24 01/14/20 14:57 Saline Flush FLUSH 10 ml ASDIRECTED PRN Administration Keep Vein Open Sodium Chloride 2.5 ml 01/14/20 14:24 01/14/20 14:56 Saline Flush FLUSH 2.5 ml ASDIRECTED PRN Administration Keep Vein Open - Re-Assessments/Exams Free Text/Narrative Re-Assessment/Exam: 01/14/20 1910 This patient was signed out to me from Dr. Felipe at this time. I promptly performed a detailed physical examination, my examination was performed after ED treatments were initiated by the signout provider. Patient has been under the care of the previous provider up until this point. Sepsis Event Note (ED) - Focused Exam Vital Signs: Vital Signs Temp Pulse Resp BP Pulse Ox 01/14/20 19:14 79 18 156/105 H 100 01/14/20 18:49 97.3 F 85 18 164/104 H 97 01/14/20 16:00 80 17 155/104 H 98 01/14/20 15:00 95 17 153/105 H 98 01/14/20 14:30 97 17 167/110 H 97 01/14/20 13:56 96.9 F 108 H 15 175/113 H 98
[2020-01-14] MEDS ORDERED: Sodium Chloride 0.9% 2.5 ML Syringe FLUSH PRN (14:24)
[2020-01-14] MEDS ORDERED: Sodium Chloride 0.9% 10 ML Syringe FLUSH PRN (14:24)
[2020-01-14] MEDS ORDERED: Lactated Ringers 1,000 ML IV ONE (14:24)
[2020-01-14 15:18] LABS: LIPASE 440 U/L (73-393)
--- NOTE | 2020-01-14 16:46 | US ---
Indication: Renal failure Technique: Multiple grayscale and color Doppler sonographic images of the kidneys and urinary bladder. Comparison: None Findings: The right kidney measures 9.4 x 5.5 x 6.0 cm. The left kidney measures 10.3 x 5.6 x 5.5. There is increased echogenicity of the liver parenchyma, consistent with chronic renal disease. There is no hydronephrosis. The urinary bladder is unremarkable. Incidental note is made gallbladder distention up to 12 cm, without gallbladder wall thickening. The visualized abdominal aorta is normal in caliber. Impression: Echogenic renal parenchyma, consistent with chronic renal disease. No hydronephrosis. Dictated by Jordan Louie MD @ Jan 14 2020 4:40PM Signed by Dr. Jordan Louie @ Jan 14 2020 4:45PM
--- NOTE | 2020-01-14 17:39 | CT ---
INDICATION: New onset renal failure TECHNIQUE: CT abdomen and pelvis without contrast. COMPARISON: None available FINDINGS: Lower chest: Decreased attenuation in the cardiac chambers suggestive of anemia. Liver: Unremarkable. Spleen: Unremarkable. Pancreas: Unremarkable. Gallbladder and bile ducts: A significantly distended gallbladder. No biliary dilatation. Adrenal glands: Unremarkable. Kidneys: No hydronephrosis or discrete urolithiasis. Few small renal low-density lesions, measuring up to 1.4 cm in the left renal lower pole, which could represent cysts. GI tract: No bowel obstruction. A normal appendix. No significant pericolonic changes. At least 1 small sigmoid colon diverticulum seen. Vascular structures: Atherosclerotic changes. Lymph nodes: Unremarkable. Miscellaneous: No free air or significant free fluid. Pelvic Organs: Upper limits of normal prostatic size. Mild bladder wall thickening which could be related to underdistention. Bones: Unremarkable for age. IMPRESSION: No obstructive uropathy or discrete urolithiasis. Probable small renal cysts. A significantly distended gallbladder. Correlate for gallbladder hydrops and with sonographic evaluation, as clinically indicated. Mild bladder wall thickening versus underdistention. Correlate with urinalysis. Please note that all CT scans at this facility use dose modulation, iterative reconstruction, and/or weight-based dosing when appropriate to reduce radiation dose to as low as reasonably achievable. Dictated by Adolfo Blue MD @ Jan 14 2020 5:25PM Signed by Dr. Adolfo Blue @ Jan 14 2020 5:37PM
[2020-01-14 19:14] VITALS: BP 156/105; PULSE 79
== END 2020-01-14 19:32 ==
LOC: MW.ED 13:29
DX: N17.9 Acute kidney failure, unspecified (principal); I10 Essential (primary) hypertension; F17.210 Nicotine dependence, cigarettes, uncomplicated; Z88.0 Allergy status to penicillin; Z20.828 Contact with and (suspected) exposure to other viral communicable diseases
CPT/HCPCS: 36415; 74176; 76775; 81001; 82550; 83690; 84300; 84484; 85610; 87635; 99285; J7120; U0002

== ENCOUNTER 2020-08-30 18:58 | Emergency (ER) | payer BC ==
[2020-08-30] MEDS ORDERED: Sodium Chloride 0.9% 2.5 ML Syringe FLUSH PRN (19:31)
[2020-08-30] MEDS ORDERED: Sodium Chloride 0.9% 10 ML Syringe FLUSH PRN (19:31)
[2020-08-30 20:07] LABS: CARBON DIOXIDE,CO2 19.6 mmol/L (21.0-32.0); POTASSIUM,K 4.2 mmol/L (3.5-5.1)
--- NOTE | 2020-08-30 21:16 | EDM.PDOC ---
ED HPI GENERAL MEDICAL PROBLEM - General Chief Complaint: General Stated Complaint: NEEDS CREATINE CHECKED Time Seen by Provider: 08/30/20 19:15 - History of Present Illness INITIAL COMMENTS - FREE TEXT/NARRATIVE: HISTORY AND PHYSICAL: History of present illness: This is a 45-year-old gentleman who presents ER today after being called by his electronic news gathering editor and [facility] to come to the ED for evaluation secondary to abnormal labs. Patient reports that he has a history significant for renal disease and has been told that he will eventually need dialysis. Patient reports that he usually sees somebody in [place] and had consultation for fistula placement however he asked for a second opinion from a doctor in [facility]. He reports that he had an appointment by phone today with a electronic news gathering editor and [facility] and had labs drawn. He reports that he got called about 2 to 3 hours prior to arrival to the ED and told that his labs looked abnormal and need to come to the ER. Patient is unable to give me any na mes of any physicians that he currently sees in [facility]. He is unsure of the kidney doctor in [place] that takes care of him as well as the [facility] electronic news gathering editor who he spoke to for second opinion earlier today. Patient denies any recent fevers, shakes, chills, nausea, vomiting, diarrhea, dysuria, frequency, urgency, chest pain, shortness of breath. Patient does complain of generalized weakness and malaise. Patient reports he has been able to make urine without any significant change in amount. Review of systems: As per history of present illness and below otherwise all systems reviewed and negative. Past medical history: As per history of present illness and as reviewed below otherwise noncontributory. Surgical history: As per history of present illness and as reviewed below otherwise noncontributory. Social history: No reported history of drug abuse. Family history: As per history of present illness and as reviewed below otherwise noncontributory. Physical exam: This patient was seen and evaluated during the 2019 SARS-CoV-2 novel coronavirus pandemic period. Community viral transmission is ongoing at time of this encounter and the emergency department is operating under pandemic response procedures. Constitutional: Patient is oriented to person, place, and time. Appears well- developed and well-nourished. No distress. HEENT: Moist mucous membranes Head: Normocephalic and atraumatic Eyes: Right eye exhibits no discharge. Left eye exhibits no discharge. No scleral icterus Neck: Normal range of motion. No tracheal deviation present. Cardiovascular: Normal rate and regular rhythm. Pulmonary: Effort normal, no respiratory distress. Abdominal: No distention Musculoskeletal: Normal range of motion Neurologic: Alert and oriented to person, place and time. Skin: [place], warm and dry. Psychiatric: Normal mood and affect. Behavior is normal. Judgment and thought content normal. Nursing note and vital signs have been reviewed Diagnostics: Patient's labs were reviewed. Patient has an elevated BUN/creatinine however patient's potassium level as well as his bicarb and anion gap are within normal limits. [] Assessment and plan: This is a 45-year-old gentleman who presented to the ER today for reevaluation secondary to abnormal labs. He reports that he was called by somebody earlier today and told to come to the ED for further evaluation. Patient does not know what labs were abnormal other than his creatinine being elevated. Patient has no new complaints. I have tried to ascertain from the patient and name of physician I can contact to try to figure out why they want him to come to the ER today. Patient has no evidence of hyper kalemia, uremia, pericarditis, volume overload or acidosis. I have not identified any abnormality with the patient or criteria that would require emergent dialysis tonight. Patient appears extremely frustrated with me because I am unable to figure out why they told him to come to the ED and I am not able to obtain the records from his [place] clinic. I have tried to explain to the patient that we are unable to obtain the records from the clinic doctors especially since he is not even sure which doctor he sees. At this time, I do not see any emergent need for him to be admitted to the hospital for emergent dialysis or transferred to another institution for emergen t dialysis. Patient will be discharged to home with instructions to call his doctor in the morning for further instructions and further explanation as to the abnormalities that they were concerned about. Reassessment at the time of disposition demonstrates that the patient is in no acute distress. The patient has remained stable throughout the entire ED visit and is without objective evidence for acute process requiring urgent intervention or hospitalization. The patient is stable for discharge, counseling is provided as documented above, discussed symptomatic treatment and specific conditions for return. I have spoken with the patient/caregiver and discussed todays findings, in addition to providing specific details for the plan of care. Questions are answered and there is agreement with the plan. Definitive disposition and diagnosis as appropriate pending reevaluation and review of above. - Related Data Allergies Allergy/AdvReac Type Severity Reaction Status Date / Time penicillin G Allergy Severe Airway Verified 08/30/20 19:13 Tightness Penicillins Allergy Airway Verified 08/30/20 19:13 Tightness Home Meds: Home Meds . [No Known Home Meds] 05/19/18 [History] Past Medical History HEENT History: Reports: None Cardiovascular History: Reports: Hypertension Respiratory History: Reports: None Gastrointestinal History: Reports: GERD Genitourinary History: Reports: None Musculoskeletal History: Reports: Gout Other Musculoskeletal History: one episode of gout in feet 2 years ago Neurological History: Reports: Seizure Other Neuro History: had one seizure 2 years ago (? alcohol induced) Psychiatric History: Reports: Anxiety, Other (See Below) Other Psychiatric History: has insomnia, takes amitriptyline Endocrine/Metabolic History: Reports: None Hematologic History: Reports: None Immunologic History: Reports: None Oncologic (Cancer) History: Reports: None Dermatologic History: Reports: None - Infectious Disease History Infectious Disease History: Reports: Chicken Pox, Measles - Past Surgical History Head Surgeries/Procedures: Reports: None GI Surgical History: Reports: Colonoscopy, Hernia, Inguinal Musculoskeletal Surgical History: Reports: Other (See Below) Other Musculoskeletal Surgeries/Procedures:: s/p excisional debridement of left foot wound Social & Family History - Family History Family Medical History: No Pertinent Family History - Tobacco Use Tobacco Use Status *Q: Never Tobacco User - Caffeine Use Caffeine Use: Reports: Coffee - Recreational Drug Use Recreational Drug Use: No ED ROS GENERAL - Review of Systems Review Of Systems: See Below ED EXAM, GENERAL - Physical Exam Exam: See Below #1 Interpretation EKG Interpretation Comments: EKG: As interpreted by ER physician: Atul: Nonspecific ST-T wave abnormalities Normal axis No evidence of ST elevation [place] Normal sinus rhythm heart rate of 82 No stigmata of hyperkalemia identified on the EKG. Course - Vital Signs Last Recorded V/S: Last Vital Signs Temp 97.2 F 08/30/20 19:17 Pulse 88 08/30/20 21:20 Resp 18 08/30/20 21:20 BP 134/84 08/30/20 21:20 Pulse Ox 99 08/30/20 21:20 - Orders/Labs/Meds Labs: Laboratory Tests 08/30/20 08/30/20 08/30/20 Range/Units 19:31 19:31 19:35 WBC 9.90 (4.0-11.0) K/uL RBC 3.24 L (4.50-5.90) M/uL Hgb 9.3 L (13.0-17.0) g/dL Hct 27.4 L (38.0-50.0) % MCV 84.6 (80.0-98.0) fL MCH 28.7 (27.0-32.0) pg MCHC 33.9 (31.0-37.0) g/dL RDW Std Deviation 41.1 (28.0-62.0) fl RDW Coeff of Jasmina 13 (11.0-15.0) % Plt Count 210 (150-400) K/uL MPV 9.60 (7.40-12.00) fL Neut % (Auto) 71.8 (48.0-80.0) % Lymph % (Auto) 20.6 (16.0-40.0) % [place] % (Auto) 5.7 (0.0-15.0) % Eos % (Auto) 1.8 (0.0-7.0) % Baso % (Auto) 0.1 (0.0-1.5) % Neut # (Auto) 7.1 H (1.4-5.7) K/uL Lymph # (Auto) 2.0 (0.6-2.4) K/uL [place] # (Auto) 0.6 (0.0-0.8) K/uL Eos # (Auto) 0.2 (0.0-0.7) K/uL Baso # (Auto) 0.0 (0.0-0.1) K/uL Nucleated RBC % 0.0 /100WBC Nucleated RBCs # 0 K/uL Sodium 141 (136-148) mmol/L Potassium 4.2 (3.5-5.1) mmol/L Chloride 104 (98-107) mmol/L Carbon Dioxide 19.6 L (21.0-32.0) mmol/L BUN 64 H (7.0-18.0) mg/dL Creatinine 9.0 H (0.8-1.3) mg/dL Est Cr Clr Drug Dosing 12.17 mL/min Estimated GFR (MDRD) 6.4 ml/min Glucose 191 H (74-106) mg/dL Calcium 8.1 L (8.5-10.1) mg/dL Total Bilirubin 0.2 (0.2-1.0) mg/dL AST 31 (15-37) IU/L ALT 38 (14-63) IU/L Alkaline Phosphatase 83 (46-116) U/L Total Protein 7.1 (6.4-8.2) g/dL Albumin 3.5 (3.4-5.0) g/dL Globulin 3.6 (2.6-4.0) g/dL Albumin/Globulin Ratio 1.0 (0.9-1.6) Urine Color YELLOW Urine Appearance CLEAR Urine pH 5.5 (5.0-8.0) Ur Specific [place] >= 1.030 (1.001-1.035) Urine Protein >=300 H (NEGATIVE) mg/dL Urine Glucose (UA) NEGATIVE (NEGATIVE) mg/dL Urine Ketones NEGATIVE (NEGATIVE) mg/dL Urine Occult Blood MODERATE H (NEGATIVE) Urine Nitrite NEGATIVE (NEGATIVE) Urine Bilirubin NEGATIVE (NEGATIVE) Urine Urobilinogen 0.2 (<2.0) EU/dL Ur Leukocyte Esterase NEGATIVE (NEGATIVE) U Hyaline Cast (Auto) 0-2 (0-2/LPF) Urine RBC 1-3 (0-2/HPF) Urine WBC 2-4 (0-5/HPF) Ur Epithelial Cells OCCASIONAL (NONE-FEW) Urine Bacteria RARE (NEGATIVE) Urine Mucus LIGHT (NONE-MOD) Meds: Medications Discontinued Medications Generic Name Dose Route Start Last Admin Trade Name Freq PRN Reason Stop Dose Admin Sodium Chloride 10 ml 08/30/20 19:31 Sodium Chloride 0.9% 10 Ml Syringe FLUSH ASDIRECTED PRN Keep Vein Open Sodium Chloride 2.5 ml 08/30/20 19:31 Sodium Chloride 0.9% 2.5 Ml Syringe FLUSH ASDIRECTED PRN Keep Vein Open Departure - Departure Time of Disposition: 21:16 Disposition: Home, Self-Care 01 Condition: Good Clinical Impression: Chronic renal failure - Discharge Information Instructions: Chronic Kidney Disease, Adult, [id number] Referrals: Nato Valladares MD [Primary Care Provider] - Forms: ED Department Discharge Additional Instructions: You were seen and evaluated in the ER today secondary to concerns about abnormal blood test. Your blood tests today do reveal that your creatinine is elevated however you do not have any other criteria that would require emergency hemodialysis. Please contact your doctor in the morning for further instructions and explanations regarding the abnormalities that they were concerned about and what the recommendations would be. The following information is given to patients seen in the emergency department who are being discharged to home. This information is to outline your options for follow-up care. We provide all patients seen in our emergency department with a follow-up referral. The need for follow-up, as well as the timing and circumstances, are variable depending upon the specifics of your emergency department visit. If you don't have a primary care physician on staff, we will provide you with a referral. We always advise you to contact your personal physician following an emergency department visit to inform them of the circumstance of the visit and for follow-up with them and/or the need for any referrals to a consulting specialist. The emergency department will also refer you to a specialist when appropriate. This referral assures that you have the opportunity for follow-up care with a specialist. All of these measure are taken in an effort to provide you with optimal care, which includes your follow-up. Under all circumstances we always encourage you to contact your private physician who remains a resource for coordinating your care. When calling for follow-up care, please make the office aware that this follow-up is from your recent emergency room visit. If for any reason you are refused follow-up, please contact the [facility] Emergency Department at and asked to speak to the emergency department charge nurse. [facility] - Primary Care [address] [place] [address] [id number] [address] [address] Sepsis Event Note (ED) - Evaluation Sepsis Screening Result: No Definite Risk
[2020-08-30 21:29] VITALS: BP 134/84; PULSE 88
--- NOTE | 2020-09-01 03:39 | PCM.EKG ---
#1 Interpretation EKG Interpretation Comments: EKG: As interpreted by ER physician: Atul: Nonspecific ST-T wave abnormalities Normal axis No evidence of ST elevation [place] Normal sinus rhythm heart rate of 82
== END 2020-08-30 21:20 | disposition home or self-care (01) ==
LOC: MW.ED 18:58
DX: I12.9 Hypertensive chronic kidney disease with stage 1 through stage 4 chronic kidney disease, or unspecified chronic kidney disease (principal); N18.9 Chronic kidney disease, unspecified; Z88.0 Allergy status to penicillin
CPT/HCPCS: 36415; 80053; 81001; 85025; 93005; 99285-25

== ENCOUNTER 2021-03-22 15:39 | Emergency (ER) | payer MEDICARE ==
[2021-03-22] MEDS ORDERED: Sodium Chloride 0.9% 2.5 ML Syringe FLUSH PRN (16:03)
[2021-03-22] MEDS ORDERED: Sodium Chloride 0.9% 10 ML Syringe FLUSH PRN (16:03)
--- NOTE | 2021-03-22 16:07 | EDM.PDOC ---
<Kevon Magana - Last Filed: 03/22/21 18:53> ED HPI GENERAL MEDICAL PROBLEM - General Chief Complaint: Abdominal Pain Stated Complaint: PULSATION UPPER ABDOMEN Time Seen by Provider: 03/22/21 15:46 - History of Present Illness INITIAL COMMENTS - FREE TEXT/NARRATIVE: History of present illness: [] Since 1:30 PM today while finishing dialysis the patient is palpitation in the anterior lower chest and upper epigastrium. Nothing makes it better or worse. It is actually better by the time I see him in the ER. He felt like a reclining position was part of the culprit. He has not really suffered from this before. He smokes but only half pack a day. He is a dialysis patient. The patient has no lightheadedness chest pain shortness of breath or diaphoresis. He has no fever. Review of systems: As per history of present illness and below otherwise all systems reviewed and negative. Past medical history: As per history of present illness and as reviewed below otherwise noncontributory. Surgical history: As per history of present illness and as reviewed below otherwise noncontributory. Social history: No reported history of drug or alcohol abuse. Family history: As per history of present illness and as reviewed below otherwise noncontributory. Physical exam: Constitutional - well developed, well-nourished and in no acute distress HEENT - normocephalic, no evidence of trauma - external nose and mouth normal - no mass in neck and no JVD - mucosae moist EYES - full EOM, PERRL, no icterus - no evidence of inflammation, injection, or drainage Respiratory - no respiratory distress, equal bilateral expansion, lungs clear to auscultation and no abnormal lung sounds Cardiovascular - Regular Rhythm with S1 and S2 appreciated and no murmur, gallop or rub. GI - abdomen soft without distension or organomegaly - normal bowel sounds - no guard or rebound Musculoskeletal no gross deformity of long bones or joints - no tenderness, swelling or edema Neurologic - Alert and oriented times four - CN II-XII grossly intact - motor sensory and coordination symmetrically normal Psychiatric - appropriate mood and affect with normal thought content Hematologic - No petechiae or purpura - mucosa appropriate color and sclera not pale - normal nail bed color and refill Integument - no rash or evidence of trauma - normal turgor Diagnostics: [] Therapeutics: [] Impression: [] Plan: [] Definitive disposition and diagnosis as appropriate pending reevaluation and review of above. - Related Data Allergies Allergy/AdvReac Type Severity Reaction Status Date / Time penicillin G Allergy Severe Airway Verified 03/22/21 15:43 Tightness Penicillins Allergy Airway Verified 03/22/21 15:43 Tightness Home Meds: Home Meds Metoprolol Succinate 25 mg PO 03/22/21 [History] Sevelamer HCl [Renagel] 800 mg PO DAILY 03/22/21 [History] amLODIPine [Norvasc] 5 mg PO DAILY 03/22/21 [History] Past Medical History HEENT History: Reports: None Cardiovascular History: Reports: Hypertension Respiratory History: Reports: None Gastrointestinal History: Reports: GERD Genitourinary History: Reports: None Musculoskeletal History: Reports: Gout Other Musculoskeletal History: one episode of gout in feet 2 years ago Neurological History: Reports: Seizure Other Neuro History: had one seizure 2 years ago (? alcohol induced) Psychiatric History: Reports: Anxiety, Other (See Below) Other Psychiatric History: has insomnia, takes amitriptyline Endocrine/Metabolic History: Reports: None Hematologic History: Reports: None Immunologic History: Reports: None Oncologic (Cancer) History: Reports: None Dermatologic History: Reports: None - Infectious Disease History Infectious Disease History: Reports: Chicken Pox, Measles - Past Surgical History Head Surgeries/Procedures: Reports: None GI Surgical History: Reports: Colonoscopy, Hernia, Inguinal Musculoskeletal Surgical History: Reports: Other (See Below) Other Musculoskeletal Surgeries/Procedures:: s/p excisional debridement of left foot wound Social & Family History - Family History Family Medical History: No Pertinent Family History - Tobacco Use Tobacco Use Status *Q: Current Every Day Tobacco User Years of Tobacco use: 30 Packs/Tins Daily: 1 - Caffeine Use Caffeine Use: Reports: Coffee, Tea - Recreational Drug Use Recreational Drug Use: No ED ROS GENERAL - Review of Systems Review Of Systems: Comprehensive ROS is negative, except as noted in HPI. ED EXAM, GENERAL - Physical Exam Exam: See Below Free Text/Narrative:: My physical exam is in the HPI #1 Interpretation EKG Interpretation Comments: EKG done 03/22/2021 at 4:26 PM shows a sinus rhythm with a heart rate of 79 a [place] interval 155. QT durations 554 and axis is 53. There are borderline repol arization abnormalities with T wave inversions diffusely. The QT is prolonged. Compared to 08/30/2020 the T wave abnormalities are new. Impression possible ischemia Departure - Departure Disposition: DC/Tfer to Acute Hospital 02 Condition: Good Clinical Impression: Hypokalemia, NSTEMI (non-ST elevated myocardial infarction), Hypomagnesemia - Discharge Information Instructions: Hypokalemia, Nonspecific Chest Pain, Adult, [id number], Pa lpitations, [id number] Referrals: Nato Valladares MD [Primary Care Provider] - Forms: ED Department Discharge Additional Instructions: Come in to have a Zio patch placed is advised by the nurse upon discharge. Return if he has significant chest pain pressure or shortness of breath especially if it is associated with sweating and nausea. [facility] - cardiology [address] [place] [address] You need a primary care physician as well [facility] - Primary Care [address] [place], [place] [id number] [place] [id number] The following information is given to patients seen in the emergency department who are being discharged to home. This information is to outline your options for follow-up care. We provide all patients seen in our emergency department with a follow-up referral. The need for follow-up, as well as the timing and circumstances, are variable depending upon the specifics of your emergency department visit. If you don't have a primary care physician on staff, we will provide you with a referral. We always advise you to contact your personal physician following an emergency department visit to inform them of the circumstance of the visit and for follow-up with them and/or the need for any referrals to a consulting specialist. The emergency department will also refer you to a specialist when appropriate. This referral assures that you have the opportunity for follow-up care with a specialist. All of these measure are taken in an effort to provide you with optimal care, which includes your follow-up. Under all circumstances we always encourage you to contact your private physician who remains a resource for coordinating your care. When calling for follow-up care, please make the office aware that this follow-up is from your recent emergency room visit. If for any reason you are refused follow-up, please contact the [facility] Emergency Department at and asked to speak to the emergency department charge nurse. Sepsis Event Note (ED) - Evaluation Sepsis Screening Result: No Definite Risk <Adam Galvin - Last Filed: 03/22/21 20:07> Course - Vital Signs Last Recorded V/S: Last Vital Signs Temp 97 F 03/22/21 15:45 Pulse 95 03/22/21 19:22 Resp 16 03/22/21 15:45 BP 141/77 H 03/22/21 19:22 Pulse Ox 99 03/22/21 19:22 - Orders/Labs/Meds Orders: Active Orders 24 hr Category Date Time Status Cardiac Monitoring [RC] . DIRECTED Care 03/22/21 16:04 Active COVID-19/FLU A+B [MOLEC] Stat Lab 03/22/21 19:58 Received PTT,PARTIAL THROMBOPLSTIN TIME [COAG] Q6H Lab 03/22/21 20:15 Ordered PTT,PARTIAL THROMBOPLSTIN TIME [COAG] Q6H Lab 03/23/21 02:15 Ordered PTT,PARTIAL THROMBOPLSTIN TIME [COAG] Q6H Lab 03/23/21 08:15 Ordered PTT,PARTIAL THROMBOPLSTIN TIME [COAG] Q6H Lab 03/23/21 14:15 Ordered PTT,PARTIAL THROMBOPLSTIN TIME [COAG] Q6H Lab 03/23/21 20:15 Ordered PTT,PARTIAL THROMBOPLSTIN TIME [COAG] Q6H Lab 03/24/21 02:15 Ordered PTT,PARTIAL THROMBOPLSTIN TIME [COAG] Q6H Lab 03/24/21 08:15 Ordered PTT,PARTIAL THROMBOPLSTIN TIME [COAG] Stat Lab 03/22/21 20:04 Ordered Heparin Sodium/0.45% NaCl [Heparin 25,000 Units in 1/2 Med 03/22/21 20:15 Ordered NS 500 ML] 500 ml IV TITRATE Magnesium Sulfate/Water [Magnesium Sulfate in Water 4 Med 03/22/21 19:59 Ordered GM/100 ML] 4 gm Premix Bag 1 bag IV ONETIME Sodium Chloride 0.9% [Saline Flush] Med 03/22/21 16:03 Active 10 ml FLUSH ASDIRECTED PRN Sodium Chloride 0.9% [Saline Flush] Med 03/22/21 16:03 Active 2.5 ml FLUSH ASDIRECTED PRN Saline Lock Insert [OM.PC] Stat Oth 03/22/21 16:03 Ordered Medication Orders Magnesium Sulfate 4 gm/ Premix 100 mls @ 50 mls/hr IV ONETIME ONE Stop: 03/22/21 21:58 Last Admin: 03/22/21 20:04 Dose: 50 mls/hr Documented by: ANNETTAOLAC Sodium Chloride (Sodium Chloride 0.9% 10 Ml Syringe) 10 ml FLUSH ASDIRECTED PRN PRN Reason: Keep Vein Open Last Admin: 03/22/21 16:17 Dose: 10 ml Documented by: ANNETTAOLAC Sodium Chloride (Sodium Chloride 0.9% 2.5 Ml Syringe) 2.5 ml FLUSH ASDIRECTED PRN PRN Reason: Keep Vein Open Last Admin: 03/22/21 16:17 Dose: 2.5 ml Documented by: JENNIFER Labs: Laboratory Tests 03/22/21 03/22/21 03/22/21 Range/Units 16:05 16:05 17:44 WBC 10.48 (4.0-11.0) K/uL RBC 2.65 L (4.50-5.90) M/uL Hgb 8.0 L (13.0-17.0) g/dL Hct 24.2 L (38.0-50.0) % MCV 91.3 (80.0-98.0) fL MCH 30.2 (27.0-32.0) pg MCHC 33.1 (31.0-37.0) g/dL RDW Std Deviation 54.6 (28.0-62.0) fl RDW Coeff of Jasmina 16 H (11.0-15.0) % Plt Count 271 (150-400) K/uL MPV 10.50 (7.40-12.00) fL Neut % (Auto) 69.0 (48.0-80.0) % Lymph % (Auto) 23.8 (16.0-40.0) % [place] % (Auto) 4.9 (0.0-15.0) % Eos % (Auto) 2.2 (0.0-7.0) % Baso % (Auto) 0.1 (0.0-1.5) % Neut # (Auto) 7.2 H (1.4-5.7) K/uL Lymph # (Auto) 2.5 H (0.6-2.4) K/uL [place] # (Auto) 0.5 (0.0-0.8) K/uL Eos # (Auto) 0.2 (0.0-0.7) K/uL Baso # (Auto) 0.0 (0.0-0.1) K/uL Nucleated RBC % 0.0 /100WBC Nucleated RBCs # 0 K/uL Sodium 140 (136-148) mmol/L Potassium 3.0 L (3.5-5.1) mmol/L Chloride 98 (98-107) mmol/L Carbon Dioxide 30.8 (21.0-32.0) mmol/L BUN 14 (7.0-18.0) mg/dL Creatinine 3.6 H (0.8-1.3) mg/dL Est Cr Clr Drug Dosing 29.45 mL/min Estimated GFR (MDRD) 18.3 ml/min Glucose 102 (74-106) mg/dL Calcium 8.9 (8.5-10.1) mg/dL Magnesium 1.6 L (1.8-2.4) mg/dL Total Bilirubin 0.4 (0.2-1.0) mg/dL AST 42 H (15-37) IU/L ALT 55 (14-63) IU/L Alkaline Phosphatase 87 (46-116) U/L Troponin I 0.065 H* 0.146 H* (0.000-0.056) ng/mL Total Protein 7.7 (6.4-8.2) g/dL Albumin 3.4 (3.4-5.0) g/dL Globulin 4.3 H (2.6-4.0) g/dL Albumin/Globulin Ratio 0.8 L (0.9-1.6) TSH, Ultra Sensitive 2.92 (0.36-3.74) uIU/mL Meds: Medications Generic Name Dose Route Start Last Admin Trade Name Severo PRN Reason Stop Dose Admin Magnesium Sulfate 4 gm/ Premix 100 mls @ 50 mls/hr 03/22/21 19:59 03/22/21 20:04 IV 03/22/21 21:58 50 mls/hr ONETIME ONE Administration Sodium Chloride 10 ml 03/22/21 16:03 03/22/21 16:17 Sodium Chloride 0.9% 10 Ml Syringe FLUSH 10 ml ASDIRECTED PRN Administration Keep Vein Open Sodium Chloride 2.5 ml 03/22/21 16:03 03/22/21 16:17 Sodium Chloride 0.9% 2.5 Ml Syringe FLUSH 2.5 ml ASDIRECTED PRN Administration Keep Vein Open Discontinued Medications Generic Name Dose Route Start Last Admin Trade Name Severo PRN Reason Stop Dose Admin Aspirin 324 mg 03/22/21 19:19 03/22/21 19:20 Aspirin 81 Mg Tab.Chew PO 03/22/21 19:20 324 mg ONETIME ONE Administration Aspirin Confirm 03/22/21 19:19 03/22/21 20:05 Aspirin 81 Mg Tab.Chew Administered 03/22/21 19:20 Not Given Dose 324 mg .ROUTE .STK-MED ONE Departure - Departure Time of Disposition: 20:06 Sepsis Event Note (ED) - Focused Exam Vital Signs: Vital Signs Temp Pulse Resp BP Pulse Ox 03/22/21 19:22 95 141/77 H 99 03/22/21 19:04 80 132/75 99 03/22/21 17:17 77 139/73 96 03/22/21 15:45 97 F 96 16 153/94 H 100 - My Orders Last 24 Hours: My Active Orders 03/22/21 19:58 COVID-19/FLU A+B [MOLEC] Stat 03/22/21 19:59 Magnesium Sulfate/Water [Magnesium Sulfate in Water 4 GM/100 ML] 4 gm Premix Bag 1 bag IV ONETIME 03/22/21 20:04 PTT,PARTIAL THROMBOPLSTIN TIME [COAG] Stat 03/22/21 20:15 PTT,PARTIAL THROMBOPLSTIN TIME [COAG] Q6H Heparin Sodium/0.45% NaCl [Heparin 25,000 Units in 1/2 NS 500 ML] 500 ml IV TITRATE 03/23/21 02:15 PTT,PARTIAL THROMBOPLSTIN TIME [COAG] Q6H 03/23/21 08:15 PTT,PARTIAL THROMBOPLSTIN TIME [COAG] Q6H 03/23/21 14:15 PTT,PARTIAL THROMBOPLSTIN TIME [COAG] Q6H 03/23/21 20:15 PTT,PARTIAL THROMBOPLSTIN TIME [COAG] Q6H 03/24/21 02:15 PTT,PARTIAL THROMBOPLSTIN TIME [COAG] Q6H 03/24/21 08:15 PTT,PARTIAL THROMBOPLSTIN TIME [COAG] Q6H - Assessment/Plan Last 24 Hours: My Active Orders 03/22/21 19:58 COVID-19/FLU A+B [MOLEC] Stat 03/22/21 19:59 Magnesium Sulfate/Water [Magnesium Sulfate in Water 4 GM/100 ML] 4 gm Premix Bag 1 bag IV ONETIME 03/22/21 20:04 PTT,PARTIAL THROMBOPLSTIN TIME [COAG] Stat 03/22/21 20:15 PTT,PARTIAL THROMBOPLSTIN TIME [COAG] Q6H Heparin Sodium/0.45% NaCl [Heparin 25,000 Units in 1/2 NS 500 ML] 500 ml IV TITRATE 03/23/21 02:15 PTT,PARTIAL THROMBOPLSTIN TIME [COAG] Q6H 03/23/21 08:15 PTT,PARTIAL THROMBOPLSTIN TIME [COAG] Q6H 03/23/21 14:15 PTT,PARTIAL THROMBOPLSTIN TIME [COAG] Q6H 03/23/21 20:15 PTT,PARTIAL THROMBOPLSTIN TIME [COAG] Q6H 03/24/21 02:15 PTT,PARTIAL THROMBOPLSTIN TIME [COAG] Q6H 03/24/21 08:15 PTT,PARTIAL THROMBOPLSTIN TIME [COAG] Q6H Assessment:: 190: Patient received in signout from Dr. Magana at 7 PM. Patient remains chest pain-free but repeat troponin is upward trending and is slightly more than doubled. Given this I do think transfer with cardiology evaluation is indicated. Will discuss with [facility] in [place]. 1910: [facility] [place] does not have capacity for the patient. [facility] also [facility] and unable to accept the patient. The patient is currently refusing transfer. I did explain to him that he had a heart attack today and that without appropriate treatment and intervention he is at risk of heart failure permanent disability or . He expresses understanding regarding these risks. Patient will be given aspirin and he is deciding whether he will allow transfer or leave AMA. 2005: Pt agrees to transfer. [facility] in [place] has accepted the patient pending COVID swab result. Pt discussed with Dr. Lindquist of cardiology, agreed with need for transfer and recommends starting heparin gtt. Will also replete Mg. Pt also discussed with Dr. Peña the hospitalist who accepts the patient for transfer.
[2021-03-22 16:53] LABS: CARBON DIOXIDE,CO2 30.8 mmol/L (21.0-32.0)
[2021-03-22] MEDS ORDERED: Aspirin 81 MG Tab.Chew ONE (19:19)
[2021-03-22] MEDS ORDERED: Aspirin 81 MG Tab.Chew PO ONE (19:19)
[2021-03-22 19:23] VITALS: BP 141/77; PULSE 95
[2021-03-22] MEDS ORDERED: Magnesium Sulfate/Water 4 GM in Premix Bag 1 BAG IV ONE (19:59)
[2021-03-22] MEDS ORDERED: Heparin Sodium/0.45% NaCl 500 ML IV SCH (20:15)
[2021-03-22 20:42] LABS: CORONAVIRUS COVID-19 NAA NEGATIVE (NEGATIVE); INFLUENZA A NAA NEGATIVE (NEGATIVE); INFLUENZA B NAA NEGATIVE (NEGATIVE)
--- NOTE | 2021-03-22 20:53 | CR ---
CHEST ONE VIEW 03/22/2021 CLINICAL HISTORY: Chest pain. COMPARISON: 01/14/2020. FINDINGS/IMPRESSION: Single frontal view of the chest. The lungs appear clear. No evidence for pneumonia. Heart size and pulmonary vascularity are within normal. No pleural effusion. Bones and soft tissues appear within normal. Trinh Finley M.D. Body/Breast Radiologist [email or web address] CLAIREV/contreras / be/Dictated by: Trinh Finley MD @ 03/22/2021 8:35:00 PM (Electronically Signed)
== END 2021-03-22 21:20 ==
LOC: MW.ED 15:39
DX: I21.4 Non-ST elevation (NSTEMI) myocardial infarction (principal); E87.6 Hypokalemia; E83.42 Hypomagnesemia; I10 Essential (primary) hypertension; Z72.0 Tobacco use; Z88.0 Allergy status to penicillin; Z79.899 Other long term (current) drug therapy; Z20.822 Contact with and (suspected) exposure to COVID-19
CPT/HCPCS: 0240U; 36415; 71045; 80053; 83735; 84443; 84484; 85025; 85730; 93005; 96365; 96368; 99285; A9270; J1644; J3475

== ENCOUNTER 2021-07-23 17:51 | Emergency (ER) | payer BC, MEDICARE ==
[2021-07-23] MEDS ORDERED: Sodium Chloride 0.9% 2.5 ML Syringe FLUSH PRN (18:05)
[2021-07-23] MEDS ORDERED: Sodium Chloride 0.9% 10 ML Syringe FLUSH PRN (18:05)
[2021-07-23] MEDS ORDERED: Sodium Chloride 0.9% 1,000 ML IV ONE (18:31)
[2021-07-23] MEDS ORDERED: LORazepam 2 MG/ML SDV IVPUSH ONE (18:32)
[2021-07-23 18:55] LABS: CARBON DIOXIDE,CO2 12.7 mmol/L (21.0-32.0); POTASSIUM,K 4.3 mmol/L (3.5-5.1)
[2021-07-23 19:29] LABS: CORONAVIRUS COVID-19 NAA NEGATIVE (NEGATIVE); INFLUENZA A NAA NEGATIVE (NEGATIVE); INFLUENZA B NAA NEGATIVE (NEGATIVE)
[2021-07-23] MEDS ORDERED: Sodium Bicarbonate 100 MEQ in Dextrose 5% in Water 100 ML IV ONE ×4 (22:59→23:24)
[2021-07-23 23:08] VITALS: PULSE 100
[2021-07-23 23:20] VITALS: BP 112/80
== END 2021-07-24 00:15 ==
LOC: MW.ED 17:51
DX: K85.90 Acute pancreatitis without necrosis or infection, unspecified (principal); N19 Unspecified kidney failure; E87.2 Acidosis; D72.829 Elevated white blood cell count, unspecified; I10 Essential (primary) hypertension; F17.210 Nicotine dependence, cigarettes, uncomplicated; Z20.822 Contact with and (suspected) exposure to COVID-19; Z79.899 Other long term (current) drug therapy; Z88.0 Allergy status to penicillin
CPT/HCPCS: 0240U; 36415; 36600; 71275; 74174; 80053; 80307; 81001; 82803; 83690; 84484; 85025; 86850; 86900; 86901; 87045; 87046; 87324; 87328; 87329; 87449; 87899; 93005; 96365; 96375; 99285; J2060; J3490; J7030; J7060

== ENCOUNTER 2021-10-02 09:03 | Emergency (ER) | payer MEDICARE ==
[2021-10-02] MEDS ORDERED: Metoclopramide 10 MG/2 ML SDV IVPUSH ONE ×2 (09:40→13:41)
[2021-10-02] MEDS ORDERED: Morphine 4 MG/ML VIAL IVPUSH ONE (09:40)
[2021-10-02 09:58] LABS: BLOOD UREA NITROGEN,BUN 122 mg/dL (7.0-18.0); CARBON DIOXIDE,CO2 6.6 mmol/L (21.0-32.0); CHLORIDE,CL 98 mmol/L (98-107); GLUCOSE RANDOM 163 mg/dL (74-106); POTASSIUM,K 4.1 mmol/L (3.5-5.1); SODIUM,NA 134 mmol/L (136-148)
[2021-10-02 10:40] LABS: LIPASE 594 U/L (73-393)
[2021-10-02] MEDS ORDERED: HYDROmorphone 2 MG/ML Syringe IVPUSH ONE ×2 (11:42→13:56)
[2021-10-02] MEDS ORDERED: metroNIDAZOLE/Normal Saline 500 MG in Premix Bag 1 BAG IV STA (12:10)
[2021-10-02] MEDS ORDERED: Levofloxacin/Dextrose 5%-Water 750 MG in Premix Bag 1 BAG IV STA (12:10)
[2021-10-02 21:30] VITALS: BP 137/90; PULSE 91
== END 2021-10-02 13:51 ==
LOC: MW.ED 09:03
DX: K85.90 Acute pancreatitis without necrosis or infection, unspecified (principal); K29.80 Duodenitis without bleeding; N19 Unspecified kidney failure; E87.2 Acidosis; I10 Essential (primary) hypertension; Z79.899 Other long term (current) drug therapy; Z88.0 Allergy status to penicillin; Z20.822 Contact with and (suspected) exposure to COVID-19
CPT/HCPCS: 36415; 36600; 71045; 74176; 80053; 80307; 82803; 83605; 83690; 83735; 83880; 84484; 85025; 87040; 93005; 96365; 96368; 96375; 96376; 99285; J1170; J1956; J2270; J2765; J3490; U0002; 93010; 99291

== ENCOUNTER 2021-12-29 18:35 | Emergency (ER) | payer MEDICARE ==
[2021-12-29] MEDS ORDERED: Sodium Chloride 0.9% 1,000 ML IV ONE (19:40)
[2021-12-29] MEDS ORDERED: Morphine 4 MG/ML Syringe IV ONE (19:40)
[2021-12-29] MEDS ORDERED: Ondansetron 4 MG/2 ML SDV IVPUSH ONE ×2 (19:42→22:45)
[2021-12-29] MEDS ORDERED: HYDROmorphone 1 MG/ML Syringe IV ONE (22:45)
== END 2021-12-29 23:25 ==
LOC: MW.ED 18:35
DX: K85.90 Acute pancreatitis without necrosis or infection, unspecified (principal)
CPT/HCPCS: 74176; 96361; 96374; 96375; 96376; 99284; J1170; J2270; J2405; J7030

== ENCOUNTER 2022-03-14 17:41 | Emergency (ER) | payer MEDICARE ==
[2022-03-14] MEDS ORDERED: Rocuronium 100 MG/10 ML MDV IV STA (17:50)
[2022-03-14] MEDS ORDERED: Etomidate 2 MG/ML 20 ML SDV IVPUSH ONE (17:50)
[2022-03-14] MEDS ORDERED: fentaNYL/Normal Saline 2,500 MCG in Premix Bag 1 BAG IV PRN (17:51)
[2022-03-14] MEDS ORDERED: propofoL 100 ML ONE (17:54)
[2022-03-14] MEDS ORDERED: propofoL 100 ML IV SCH (18:00)
[2022-03-14] MEDS ORDERED: Cefepime 2 GM Vial IVPUSH ONE (18:10)
[2022-03-14] MEDS ORDERED: Cefepime 2 GM in Sodium Chloride 0.9% 50 ML IV ONE ×3 (18:30→18:45)
[2022-03-14] MEDS ORDERED: VANCOmycin 1.5 GM/300 ML 1.5 GM in Premix Bag 1 BAG IV ONE (18:30)
[2022-03-14 18:45] LABS: CARBON DIOXIDE,CO2 6.6 mmol/L (21.0-32.0); CHLORIDE,CL 91 mmol/L (98-107); GLUCOSE RANDOM 70 mg/dL (74-106); LIPASE 256 U/L (73-393); SODIUM,NA 136 mmol/L (136-148)
[2022-03-14 18:46] LABS: BLOOD UREA NITROGEN,BUN 158 mg/dL (7.0-18.0)
[2022-03-14] MEDS ORDERED: Furosemide 20 MG/2 ML VIAL IVPUSH ONE (18:59)
[2022-03-14] MEDS ORDERED: Norepinephrine Bit/D5W Premix 250 ML ONE (19:10)
[2022-03-14] MEDS ORDERED: Norepinephrine 4 MG in Dextrose 5% in Water 246 ML IV SCH ×4 (19:15→19:45)
[2022-03-14 19:28] LABS: CORONAVIRUS COVID-19 NAA NEGATIVE (NEGATIVE); INFLUENZA A NAA POSITIVE (NEGATIVE); INFLUENZA B NAA NEGATIVE (NEGATIVE); RESPIRATORY SYNCYTIAL VIR NAA NEGATIVE (NEGATIVE)
[2022-03-14] MEDS ORDERED: Oseltamivir Phosphate 30 MG Capsule PO STA (19:36)
[2022-03-14] MEDS ORDERED: Norepinephrine Bit/D5W Premix 250 ML IV SCH (19:45)
[2022-03-14] MEDS ORDERED: Pantoprazole 40 MG in Sodium Chloride 0.9% 10 ML IVPUSH ONE (23:25)
[2022-03-15] MEDS ORDERED: Sodium Bicarbonate 8.4% 50 MEQ/50 ML Syringe IVPUSH ONE ×2 (02:30→04:12)
[2022-03-15 02:56] LABS: CARBON DIOXIDE,CO2 11.9 mmol/L (21.0-32.0); CHLORIDE,CL 91 mmol/L (98-107); GLUCOSE RANDOM 145 mg/dL (74-106); LIPASE 452 U/L (73-393); POTASSIUM,K 6.5 mmol/L (3.5-5.1); SODIUM,NA 132 mmol/L (136-148)
[2022-03-15 03:17] LABS: BLOOD UREA NITROGEN,BUN 166 mg/dL (7.0-18.0)
[2022-03-15] MEDS ORDERED: fentaNYL 50 MCG/ML SDV IVPUSH ONE (03:23)
[2022-03-15] MEDS ORDERED: 50% Dextrose in Water 50 ML Syringe IVPUSH PRN (03:45)
[2022-03-15] MEDS ORDERED: 50% Dextrose in Water 50 ML Syringe IVPUSH ONE (03:45)
[2022-03-15] MEDS ORDERED: Insulin Regular, Human 100 Units/ML 10 ML Vial IVPUSH ONE (03:45)
[2022-03-15] MEDS ORDERED: Calcium Gluconate 10% 1 GM/10 ML SDV IVPUSH ONE (03:45)
[2022-03-15] MEDS ORDERED: Glucagon,Human Recombinant 1 MG Vial IM PRN (03:45)
[2022-03-15] MEDS ORDERED: Sodium Polystyrene Sulfonate 15 GM/60 ML Susp 60 ML Bot PO STA (03:47)
[2022-03-15] MEDS ORDERED: Sodium Bicarbonate 150 MEQ in Dextrose 5% in Water 1,000 ML IV ONE ×2 (04:13)
[2022-03-15] MEDS ORDERED: Sodium Bicarbonate 8.4% 50 MEQ/50 ML Syringe ONE (04:36)
[2022-03-15] MEDS ORDERED: Norepinephrine Bit/D5W Premix 250 ML ONE (04:36)
[2022-03-15] MEDS ORDERED: Norepinephrine Bit/D5W Premix 250 ML IV SCH (05:00)
[2022-03-15] MEDS ORDERED: propofoL 100 ML ONE (05:46)
[2022-03-15] MEDS: propofoL 100 ML IV SCH ×3 (06:00→09:01)
[2022-03-15 07:48] LABS: CARBON DIOXIDE,CO2 15.5 mmol/L (21.0-32.0); CHLORIDE,CL 90 mmol/L (98-107); GLUCOSE RANDOM 194 mg/dL (74-106); POTASSIUM,K 4.4 mmol/L (3.5-5.1); SODIUM,NA 139 mmol/L (136-148)
[2022-03-15 07:56] LABS: BLOOD UREA NITROGEN,BUN 163 mg/dL (7.0-18.0)
[2022-03-15] MEDS ORDERED: Albuterol/Ipratropium 3.0-0.5 MG/3 ML Neb Soln NEB SCH (08:00)
[2022-03-15] MEDS ORDERED: Propofol 200 MG/20 ML SDV IVPUSH STA (08:13)
[2022-03-15] MEDS ORDERED: Propofol 200 MG/20 ML SDV ONE (08:15)
[2022-03-15] MEDS ORDERED: Albuterol/Ipratropium 3.0-0.5 MG/3 ML Neb Soln ONE (09:03)
[2022-03-15] MEDS ORDERED: Albuterol/Ipratropium 3.0-0.5 MG/3 ML Neb Soln NEB ONE (09:03)
[2022-03-15 10:52] VITALS: BP 99/62; PULSE 75
== END 2022-03-15 10:46 ==
LOC: MW.ED 17:41
DX: J96.91 Respiratory failure, unspecified with hypoxia (principal); E87.6 Hypokalemia; I12.0 Hypertensive chronic kidney disease with stage 5 chronic kidney disease or end stage renal disease; N18.6 End stage renal disease; J44.9 Chronic obstructive pulmonary disease, unspecified; G47.00 Insomnia, unspecified; Z99.2 Dependence on renal dialysis; Z88.0 Allergy status to penicillin; Z79.899 Other long term (current) drug therapy; Z20.822 Contact with and (suspected) exposure to COVID-19
CPT/HCPCS: 0241U; 31500; 36415; 36430; 36556; 36600; 43752; 51702; 71045; 71045-26; 80053; 80307; 82803; 82947; 83605; 83690; 83735; 84484; 85025; 85610; 85730; 86850; 86900; 86901; 86920; 87040; 93005; 94640; 96365; 96366; 96368; 96375; 96376; 99285-25; A9270-GY; C9113; J0610; J0692; J1815-GY; J2704; J3010; J3370; J3490; J7620-GY; P9016

== ENCOUNTER 2022-05-18 17:00 | Emergency (ER) | payer MEDICARE ==
[2022-05-18] MEDS ORDERED: Sodium Chloride 0.9% 10 ML Syringe FLUSH PRN (18:28)
[2022-05-18] MEDS ORDERED: Sodium Chloride 0.9% 2.5 ML Syringe FLUSH PRN (18:28)
[2022-05-18 19:23] LABS: CARBON DIOXIDE,CO2 28.3 mmol/L (21.0-32.0); POTASSIUM,K 3.9 mmol/L (3.5-5.1)
[2022-05-18 20:29] VITALS: BP 155/104; PULSE 99
== END 2022-05-18 20:29 | disposition home or self-care (01) ==
LOC: MW.ED 17:00
DX: M79.89 Other specified soft tissue disorders (principal); I12.0 Hypertensive chronic kidney disease with stage 5 chronic kidney disease or end stage renal disease; N18.6 End stage renal disease; J44.9 Chronic obstructive pulmonary disease, unspecified; Z99.2 Dependence on renal dialysis; Z88.0 Allergy status to penicillin
CPT/HCPCS: 36415; 80053; 85025; 93970; 99284; J3490; 99283

== ENCOUNTER 2022-08-06 09:20 | Emergency (ER) | payer MEDICARE ==
[2022-08-06 09:32] VITALS: BP 165/114; PULSE 103
[2022-08-06 10:57] LABS: BASOPHILS PERCENT AUTO 0.1 % (0.0-1.5); EOSINOPHILS ABSOLUTE AUTO 0.1 K/uL (0.0-0.7); EOSINOPHILS PERCENT AUTO 0.7 % (0.0-7.0); HEMATOCRIT 22.5 % (38.0-50.0); HEMOGLOBIN 6.9 g/dL (13.0-17.0); LYMPHOCYTES ABSOLUTE AUTO 1.5 K/uL (0.6-2.4); LYMPHOCYTES PERCENT AUTO 8.4 % (16.0-40.0); MEAN CORPUSCULAR HGB CONC 30.7 g/dL (31.0-37.0); MEAN CORPUSCULAR VOLUME 94.5 fL (80.0-98.0); MONOCYTES ABSOLUTE AUTO 0.8 K/uL (0.0-0.8); MONOCYTES PERCENT AUTO 4.6 % (0.0-15.0); NEUTROPHILS ABSOLUTE AUTO 15.5 K/uL (1.4-5.7); NEUTROPHILS PERCENT AUTO 86.2 % (48.0-80.0); NRBC ABSOLUTE 0 K/uL; PLATELET COUNT,PLT 164 K/uL (150-400); RED BLOOD CELL COUNT 2.38 M/uL (4.50-5.90); WHITE BLOOD CELL COUNT,WBC 18.01 K/uL (4.0-11.0)
[2022-08-06 11:21] LABS: A/G RATIO 0.8 (0.9-1.6); ALBUMIN 2.9 g/dL (3.4-5.0); BILIRUBIN TOTAL 0.5 mg/dL (0.2-1.0); CALCIUM 9.2 mg/dL (8.5-10.1); EST CRCL DRUG DOSING (CG) 5.05 mL/min; PROTEIN TOTAL,TP 6.6 g/dL (6.4-8.2)
[2022-08-06 11:28] LABS: LACTIC ACID 0.6 mmol/L (0.4-2.0)
== END 2022-08-06 13:11 | disposition home or self-care (01) ==
LOC: MW.ED 09:20
DX: N50.89 Other specified disorders of the male genital organs (principal); I12.0 Hypertensive chronic kidney disease with stage 5 chronic kidney disease or end stage renal disease; N18.6 End stage renal disease; D63.1 Anemia in chronic kidney disease; Z91.148 Patient's other noncompliance with medication regimen for other reason; Z88.0 Allergy status to penicillin; Z79.899 Other long term (current) drug therapy
CPT/HCPCS: 36415; 76870; 76870-26; 80053; 83605; 85025; 93976; 93976-26; 99284; 99285

== ENCOUNTER 2022-12-03 17:49 | Emergency (ER) | payer MEDICARE ==
[2022-12-03] MEDS ORDERED: Clindamycin Phosphate in D5W 600 MG in Premix Bag 1 BAG IV ONE ×2 (22:13)
[2022-12-03 22:37] LABS: BASOPHILS PERCENT AUTO 0.3 % (0.0-1.5); EOSINOPHILS ABSOLUTE AUTO 0.1 K/uL (0.0-0.7); EOSINOPHILS PERCENT AUTO 0.5 % (0.0-7.0); HEMATOCRIT 27.4 % (38.0-50.0); HEMOGLOBIN 8.7 g/dL (13.0-17.0); LYMPHOCYTES ABSOLUTE AUTO 0.9 K/uL (0.6-2.4); LYMPHOCYTES PERCENT AUTO 9.2 % (16.0-40.0); MEAN CORPUSCULAR HEMOGLOBIN 31.1 pg (27.0-32.0); MEAN CORPUSCULAR HGB CONC 31.8 g/dL (31.0-37.0); MEAN CORPUSCULAR VOLUME 97.9 fL (80.0-98.0); MONOCYTES ABSOLUTE AUTO 0.9 K/uL (0.0-0.8); MONOCYTES PERCENT AUTO 8.5 % (0.0-15.0); NEUTROPHILS ABSOLUTE AUTO 8.2 K/uL (1.4-5.7); NEUTROPHILS PERCENT AUTO 81.5 % (48.0-80.0); NRBC ABSOLUTE 0 K/uL; NRBC PERCENT 0.9 /100WBC; PLATELET COUNT,PLT 178 K/uL (150-400); WHITE BLOOD CELL COUNT,WBC 10.06 K/uL (4.0-11.0)
[2022-12-03 22:58] LABS: A/G RATIO 0.7 (0.9-1.6); ALBUMIN 3.1 g/dL (3.4-5.0); BILIRUBIN TOTAL 0.6 mg/dL (0.2-1.0); C-REACTIVE PROTEIN 16.7 mg/dL (0.00-0.90); CARBON DIOXIDE,CO2 27.2 mmol/L (21.0-32.0); EST CRCL DRUG DOSING (CG) 15.15 mL/min; POTASSIUM,K 2.6 mmol/L (3.5-5.1); PROTEIN TOTAL,TP 7.4 g/dL (6.4-8.2)
[2022-12-03] MEDS ORDERED: Potassium Chloride 20 MEQ Tab.ER PO ONE (23:03)
[2022-12-04 00:20] VITALS: BP 131/89; PULSE 91
== END 2022-12-04 00:22 | disposition home or self-care (01) ==
LOC: MW.ED 17:49
DX: L08.9 Local infection of the skin and subcutaneous tissue, unspecified (principal); I10 Essential (primary) hypertension; K21.9 Gastro-esophageal reflux disease without esophagitis; M10.9 Gout, unspecified; Z88.0 Allergy status to penicillin; Z79.899 Other long term (current) drug therapy
CPT/HCPCS: 36415; 73620; 80053; 85025; 86140; 96365; 99283; J3490

== ENCOUNTER 2022-12-27 15:41 | Emergency (ER) | payer MEDICARE ==
[2022-12-27] MEDS ORDERED: Sodium Chloride 0.9% 2.5 ML Syringe FLUSH PRN (16:51)
[2022-12-27] MEDS ORDERED: Sodium Chloride 0.9% 10 ML Syringe FLUSH PRN (16:51)
[2022-12-27] MEDS ORDERED: Piperacillin/Tazobactam 3.375 GM in Sodium Chloride 0.9% 100 ML IV STA (17:23)
[2022-12-27] MEDS ORDERED: VANCOmycin 1.5 GM/300 ML 1.5 GM in Premix Bag 1 BAG IV ONE (17:30)
[2022-12-27 17:32] LABS: BASOPHILS ABSOLUTE AUTO 0.05 K/uL (0.00-0.20); BASOPHILS PERCENT AUTO 0.2 % (0.0-1.0); EOSINOPHILS ABSOLUTE AUTO 0.06 K/uL (0.00-0.45); EOSINOPHILS PERCENT AUTO 0.2 % (0.0-6.0); HEMATOCRIT 28.7 % (42.0-52.0); HEMOGLOBIN 8.9 g/dL (14.0-18.0); LYMPHOCYTES ABSOLUTE AUTO 1.65 K/uL (1.00-4.80); MEAN CORPUSCULAR HEMOGLOBIN 33.7 pg (28.0-32.0); MEAN CORPUSCULAR VOLUME 108.7 fL (83.0-99.0); MEAN PLATELET VOLUME 10.2 fL (9.4-12.4); MONOCYTES ABSOLUTE AUTO 1.41 K/uL (0.00-0.80); MONOCYTES PERCENT AUTO 5.1 % (0.0-8.0); NEUTROPHILS ABSOLUTE AUTO 23.1 K/uL (1.8-7.7); NEUTROPHILS PERCENT AUTO 83.4 % (41.0-71.0); NRBC ABSOLUTE 0.83 K/uL (0.00-0.02); PLATELET COUNT,PLT 245 K/uL (150-400); RED BLOOD CELL COUNT 2.64 M/uL (4.52-5.90); WHITE BLOOD CELL COUNT,WBC 27.72 K/uL (3.9-11.3)
[2022-12-27 17:46] LABS: INR 1.32 (0.86-1.11)
[2022-12-27 17:53] LABS: HEMOGLOBIN A1C 5.3 %
[2022-12-27 17:55] LABS: A/G RATIO 0.5 (0.9-1.6); ACETAMINOPHEN 8.9 ug/mL; ALBUMIN 2.5 g/dL (3.4-5.0); BILIRUBIN TOTAL 0.5 mg/dL (0.2-1.0); C-REACTIVE PROTEIN 17.02 mg/dL (<0.3); CALCIUM 9.4 mg/dL (8.5-10.1); CREATININE 6.1 mg/dL (0.8-1.3); EST CRCL DRUG DOSING (CG) 16.9 mL/min; POTASSIUM,K 2.8 mmol/L (3.5-5.1); PROTEIN TOTAL,TP 7.8 g/dL (6.4-8.2)
[2022-12-27] MEDS: Potassium Chloride 20 MEQ Tab.ER PO STA ×2 (18:40→18:49)
[2022-12-27] MEDS ORDERED: Potassium Chloride 20 MEQ Tab.ER PO STA (18:48)
[2022-12-27] MEDS ORDERED: Clindamycin Phosphate in D5W 600 MG in Premix Bag 1 BAG IV STA ×2 (19:33)
[2022-12-27 19:43] VITALS: BP 136/103
[2022-12-27 19:49] LABS: MAGNESIUM 1.8 mg/dL (1.8-2.4); PHOSPHORUS 3.7 mg/dL (2.6-4.7)
[2022-12-27 21:46] VITALS: PULSE 106
== END 2022-12-27 21:50 ==
LOC: MW.ED 15:41
DX: M79.604 Pain in right leg (principal); M79.89 Other specified soft tissue disorders; I10 Essential (primary) hypertension; Z91.038 Other insect allergy status; Z88.0 Allergy status to penicillin; Z79.899 Other long term (current) drug therapy
CPT/HCPCS: 36415; 71045; 73590; 73630; 80053; 80143; 83036; 83605; 83735; 84100; 85025; 85610; 85652; 86140; 87040; 93005; 93925; 93970; 96365; 96367; 99285; A9270; J2543; J3370; J3490; 93010

== ENCOUNTER 2023-02-15 07:56 | Emergency (ER) | payer MEDICARE ==
[2023-02-15 08:58] LABS: BASOPHILS ABSOLUTE AUTO 0.09 K/uL (0.00-0.20); BASOPHILS PERCENT AUTO 0.4 % (0.0-1.0); EOSINOPHILS ABSOLUTE AUTO 0.03 K/uL (0.00-0.45); EOSINOPHILS PERCENT AUTO 0.1 % (0.0-6.0); HEMOGLOBIN 10.2 g/dL (14.0-18.0); IMMATURE GRAN ABSOLUTE AUTO 0.32 K/uL (0.00-0.05); IMMATURE GRAN PERCENT AUTO 1.5 % (0.0-0.4); LYMPHOCYTES PERCENT AUTO 6.9 % (24.0-44.0); MEAN CORPUSCULAR HEMOGLOBIN 32.5 pg (28.0-32.0); MEAN CORPUSCULAR HGB CONC 31.9 g/dL (32.0-36.0); MEAN CORPUSCULAR VOLUME 101.9 fL (83.0-99.0); MEAN PLATELET VOLUME 10.9 fL (9.4-12.4); MONOCYTES ABSOLUTE AUTO 0.94 K/uL (0.00-0.80); MONOCYTES PERCENT AUTO 4.3 % (0.0-8.0); NEUTROPHILS ABSOLUTE AUTO 18.87 K/uL (1.80-7.70); NEUTROPHILS PERCENT AUTO 86.8 % (41.0-71.0); NRBC ABSOLUTE 0.42 K/uL (0.00-0.02); NRBC PERCENT 1.9 /100WBC (0.0-0.2); PLATELET COUNT,PLT 314 K/uL (150-400); RED BLOOD CELL COUNT 3.14 M/uL (4.52-5.90); WHITE BLOOD CELL COUNT,WBC 21.75 K/uL (3.9-11.3)
[2023-02-15 09:26] LABS: A/G RATIO 0.5 (0.9-1.6); ALBUMIN 2.7 g/dL (3.4-5.0); BILIRUBIN TOTAL 0.7 mg/dL (0.2-1.0); CALCIUM 10.5 mg/dL (8.5-10.1); CARBON DIOXIDE,CO2 21.3 mmol/L (21.0-32.0); EST CRCL DRUG DOSING (CG) 11.84 mL/min; MAGNESIUM 2.7 mg/dL (1.8-2.4); POTASSIUM,K 5.8 mmol/L (3.5-5.1); PROTEIN TOTAL,TP 8.3 g/dL (6.4-8.2)
[2023-02-15] MEDS ORDERED: metroNIDAZOLE/Normal Saline 500 MG in Premix Bag 1 BAG IV ONE (09:59)
[2023-02-15] MEDS ORDERED: Ciprofloxacin in D5W 400 MG in Premix Bag 1 BAG IV STA ×2 (10:00)
[2023-02-15] MEDS ORDERED: Insulin Regular, Human 100 Units/ML 10 ML Vial IVPUSH ONE (10:05)
[2023-02-15] MEDS ORDERED: 50% Dextrose in Water 50 ML Syringe IVPUSH ONE (10:05)
[2023-02-15] MEDS ORDERED: Calcium Gluconate 10% 1 GM/10 ML SDV IVPUSH ONE (10:05)
[2023-02-15] MEDS ORDERED: Sodium Polystyrene Sulfonate 15 GM/60 ML Susp 60 ML Bot PO ONE (10:06)
[2023-02-15 14:36] VITALS: BP 131/91; PULSE 76
== END 2023-02-15 16:00 ==
LOC: MW.ED 07:56
DX: R19.7 Diarrhea, unspecified (principal); E87.5 Hyperkalemia; I12.0 Hypertensive chronic kidney disease with stage 5 chronic kidney disease or end stage renal disease; N18.6 End stage renal disease; K21.9 Gastro-esophageal reflux disease without esophagitis; Z99.2 Dependence on renal dialysis; Z88.0 Allergy status to penicillin; Z91.030 Bee allergy status; Z20.822 Contact with and (suspected) exposure to COVID-19
CPT/HCPCS: 36415; 74176; 80053; 82947; 83690; 83735; 84484; 85025; 87045; 87046; 87324; 87328; 87329; 87449; 87899; 93005; 96365; 96367; 96375; 99285; A9270; J0612; J0744; J3490; U0002; J1815-GY

== ENCOUNTER 2023-04-17 19:47 | Emergency (ER) | payer MEDICAID, MEDICARE ==
[2023-04-17 20:04] VITALS: BP 139/101; PULSE 115
== END 2023-04-17 20:45 | disposition home or self-care (01) ==
LOC: MW.ED 19:47
DX: K62.89 Other specified diseases of anus and rectum (principal); I10 Essential (primary) hypertension; F17.210 Nicotine dependence, cigarettes, uncomplicated; Z91.030 Bee allergy status; Z88.0 Allergy status to penicillin
CPT/HCPCS: 99282; 99283

== ENCOUNTER 2023-04-22 04:43 | Emergency (ER) | payer MEDICARE ==
[2023-04-22 08:30] VITALS: BP 138/102; PULSE 114
== END 2023-04-22 08:35 | disposition home or self-care (01) ==
LOC: MW.ED 04:43
DX: S22.42XA Multiple fractures of ribs, left side, initial encounter for closed fracture (principal); I10 Essential (primary) hypertension; Z79.899 Other long term (current) drug therapy; Z91.030 Bee allergy status; Z88.0 Allergy status to penicillin; W01.198A Fall on same level from slipping, tripping and stumbling with subsequent striking against other object, initial encounter
CPT/HCPCS: 70450; 70450-26; 70486; 70486-26; 71101-26-LT; 71101-LT; 72125; 72125-26; 73020-26-LT; 73020-LT; 73502-26-LT; 73502-LT; 73560-26-LT; 73560-LT; 73700-26-LT; 73700-LT; 99283; 99284

== ENCOUNTER 2023-04-27 04:55 | Emergency (ER) | payer MEDICARE ==
[2023-04-27 06:35] VITALS: BP 122/70; PULSE 91
== END 2023-04-27 06:34 | disposition home or self-care (01) ==
LOC: MW.ED 04:55
DX: M25.552 Pain in left hip (principal); I10 Essential (primary) hypertension; Z99.2 Dependence on renal dialysis; Z79.899 Other long term (current) drug therapy; Z88.0 Allergy status to penicillin; Z91.030 Bee allergy status; W07.XXXA Fall from chair, initial encounter
CPT/HCPCS: 73502-26-LT; 73502-LT; 99282; 99284

== ENCOUNTER 2023-05-01 21:37 | Emergency (ER) | payer MEDICARE ==
[2023-05-01 21:56] LABS: HEMATOCRIT 32.2 % (42.0-52.0); MEAN CORPUSCULAR HEMOGLOBIN 25.3 pg (28.0-32.0); MEAN CORPUSCULAR HGB CONC 31.1 g/dL (32.0-36.0); MEAN CORPUSCULAR VOLUME 81.5 fL (83.0-99.0); MEAN PLATELET VOLUME 8.9 fL (9.4-12.4); PLATELET COUNT,PLT 299 K/uL (150-400); RED BLOOD CELL COUNT 3.95 M/uL (4.52-5.90); WHITE BLOOD CELL COUNT,WBC 19.41 K/uL (3.9-11.3)
[2023-05-01] MEDS: Acetaminophen 325 MG Tab PO ONE (22:05)
[2023-05-01] MEDS: Albuterol/Ipratropium 3.0-0.5 MG/3 ML Neb Soln NEB ONE (22:06)
[2023-05-01] MEDS: Sodium Chloride 0.9% 2.5 ML Syringe FLUSH PRN (22:10)
[2023-05-01] MEDS: Sodium Chloride 0.9% 10 ML Syringe FLUSH PRN (22:10)
[2023-05-01] MEDS: Sodium Chloride 0.9% 1,000 ML IV ONE (22:22)
[2023-05-01 22:26] LABS: LACTIC ACID 2.2 mmol/L (0.4-2.0)
[2023-05-01 22:39] LABS: A/G RATIO 0.5 (0.9-1.6); ALBUMIN 2.6 g/dL (3.4-5.0); BILIRUBIN TOTAL 0.8 mg/dL (0.2-1.0); CARBON DIOXIDE,CO2 23.5 mmol/L (21.0-32.0); CREATININE 11.1 mg/dL (0.8-1.3); EST CRCL DRUG DOSING (CG) 7.98 mL/min; POTASSIUM,K 4.6 mmol/L (3.5-5.1); PROTEIN TOTAL,TP 8.3 g/dL (6.4-8.2)
[2023-05-01 22:42] LABS: LYMPHOCYTES ABSOLUTE MAN 1.75 K/uL (1.00-4.80); LYMPHOCYTES PERCENT MAN 9 % (24-44); MONOCYTES ABSOLUTE MAN 1.36 K/uL (0.00-0.80); MONOCYTES PERCENT MAN 7 % (0-8); SEG NEUTROPHILS PERCENT MAN 84 % (41-71)
[2023-05-01 22:53] LABS: CORONAVIRUS COVID-19 NAA NEGATIVE (NEGATIVE); INFLUENZA A NAA NEGATIVE (NEGATIVE); INFLUENZA B NAA NEGATIVE (NEGATIVE)
[2023-05-01] MEDS: Levofloxacin/Dextrose 5%-Water 750 MG in Premix Bag 1 BAG IV ONE (23:47)
[2023-05-02] MEDS: Morphine 15 MG Tab.ER PO STA ×2 (00:20→00:31)
[2023-05-02 08:38] VITALS: BP 117/98; PULSE 98
[2023-05-02] MEDS: Morphine 15 MG Tab.ER PO ONE (08:55)
== END 2023-05-02 09:10 ==
LOC: MW.ED 21:37
DX: J18.9 Pneumonia, unspecified organism (principal); I50.9 Heart failure, unspecified; N19 Unspecified kidney failure; Z99.2 Dependence on renal dialysis; I10 Essential (primary) hypertension; F17.210 Nicotine dependence, cigarettes, uncomplicated; Z88.0 Allergy status to penicillin; Z91.030 Bee allergy status; Z79.899 Other long term (current) drug therapy
CPT/HCPCS: 0240U; 36415; 71045; 80053; 82140; 83605; 83690; 83880; 84484; 85025; 86140; 87040; 94640; 96365; 99285; A9270; J1956; J3490; J7030; J7620-GY

== ENCOUNTER 2023-07-08 03:53 | Emergency (ER) | payer MEDICARE, MEDICAID ==
[2023-07-08] MEDS: Albuterol/Ipratropium 3.0-0.5 MG/3 ML Neb Soln NEB ONE (04:58)
[2023-07-08] MEDS: Nitroglycerin 2% Oint 1 GM UD Packet TOP ONE (04:58)
[2023-07-08] MEDS: Sodium Chloride 0.9% 2.5 ML Syringe FLUSH PRN (04:59)
[2023-07-08] MEDS: Sodium Chloride 0.9% 10 ML Syringe FLUSH PRN (04:59)
[2023-07-08 05:00] LABS: BASOPHILS ABSOLUTE AUTO 0.07 K/uL (0.00-0.20); BASOPHILS PERCENT AUTO 0.4 % (0.0-1.0); EOSINOPHILS ABSOLUTE AUTO 0.61 K/uL (0.00-0.45); EOSINOPHILS PERCENT AUTO 3.3 % (0.0-6.0); HEMATOCRIT 36.6 % (42.0-52.0); HEMOGLOBIN 11.5 g/dL (14.0-18.0); IMMATURE GRAN ABSOLUTE AUTO 0.05 K/uL (0.00-0.05); IMMATURE GRAN PERCENT AUTO 0.3 % (0.0-0.4); LYMPHOCYTES ABSOLUTE AUTO 1.86 K/uL (1.00-4.80); LYMPHOCYTES PERCENT AUTO 10.2 % (24.0-44.0); MEAN CORPUSCULAR HEMOGLOBIN 27.4 pg (28.0-32.0); MEAN CORPUSCULAR HGB CONC 31.4 g/dL (32.0-36.0); MEAN CORPUSCULAR VOLUME 87.1 fL (83.0-99.0); MEAN PLATELET VOLUME 8.8 fL (9.4-12.4); MONOCYTES ABSOLUTE AUTO 0.75 K/uL (0.00-0.80); MONOCYTES PERCENT AUTO 4.1 % (0.0-8.0); NEUTROPHILS ABSOLUTE AUTO 14.87 K/uL (1.80-7.70); NEUTROPHILS PERCENT AUTO 81.7 % (41.0-71.0); PLATELET COUNT,PLT 325 K/uL (150-400); WHITE BLOOD CELL COUNT,WBC 18.21 K/uL (3.9-11.3)
[2023-07-08 05:02] LABS: BASE EXCESS VENOUS 3.3 (-2.0-3.0); PH,VENOUS 7.42 (7.31-7.41)
[2023-07-08] MEDS: Cefepime 2 GM in Sodium Chloride 0.9% 50 ML IV ONE (05:25)
[2023-07-08 05:28] LABS: A/G RATIO 0.6 (0.9-1.6); ALANINE AMINOTRANSFERASE,ALT 16 IU/L (14-63); ALBUMIN 3.1 g/dL (3.4-5.0); ALKALINE PHOSPHATASE 178 U/L (46-116); ASPARTATE AMNIOTRANSFERASE,AST 27 IU/L (15-37); BILIRUBIN TOTAL 0.6 mg/dL (0.2-1.0); BLOOD UREA NITROGEN,BUN 52 mg/dL (7.0-18.0); CALCIUM 10.2 mg/dL (8.5-10.1); CARBON DIOXIDE,CO2 26.2 mmol/L (21.0-32.0); CHLORIDE,CL 97 mmol/L (98-107); CREATININE 7.4 mg/dL (0.8-1.3); ESTIMATED GFR 8 mL/min (>60); GLUCOSE RANDOM 86 mg/dL (74-106); LIPASE 20 U/L (16-77); MAGNESIUM 2.2 mg/dL (1.8-2.4); POTASSIUM,K 5.6 mmol/L (3.5-5.1); PROTEIN TOTAL,TP 8.4 g/dL (6.4-8.2); SODIUM,NA 137 mmol/L (136-148)
[2023-07-08 05:29] LABS: LACTIC ACID 1.2 mmol/L (0.4-2.0)
[2023-07-08] MEDS: Nitroglycerin/D5W 25 MG/250 ML BOTTLE IV SCH (05:56)
[2023-07-08 07:00] VITALS: BP 157/110; PULSE 92
== END 2023-07-08 07:19 ==
LOC: MW.ED 03:53
DX: J96.01 Acute respiratory failure with hypoxia (principal); I12.0 Hypertensive chronic kidney disease with stage 5 chronic kidney disease or end stage renal disease; N18.6 End stage renal disease; J81.1 Chronic pulmonary edema; K21.9 Gastro-esophageal reflux disease without esophagitis; Z91.030 Bee allergy status; Z88.0 Allergy status to penicillin; Z79.899 Other long term (current) drug therapy; Z86.19 Personal history of other infectious and parasitic diseases; Z99.2 Dependence on renal dialysis
CPT/HCPCS: 36415; 71045; 80053; 82803; 83605; 83690; 83735; 83880; 84484; 85025; 87040; 93005; 94640; 96365; 96375; 99285; A9270; J0692; J2305; J3490; 93010; 99291; J7620-GY

== ENCOUNTER 2023-10-18 16:01 | Emergency (ER) | payer MEDICARE, MEDICAID ==
[2023-10-18 16:48] LABS: BASOPHILS ABSOLUTE AUTO 0.04 K/uL (0.00-0.20); BASOPHILS PERCENT AUTO 0.5 % (0.0-1.0); EOSINOPHILS ABSOLUTE AUTO 0.39 K/uL (0.00-0.45); EOSINOPHILS PERCENT AUTO 4.5 % (0.0-6.0); HEMATOCRIT 21.6 % (42.0-52.0); HEMOGLOBIN 6.8 g/dL (14.0-18.0); IMMATURE GRAN ABSOLUTE AUTO 0.14 K/uL (0.00-0.05); IMMATURE GRAN PERCENT AUTO 1.6 % (0.0-0.4); LYMPHOCYTES ABSOLUTE AUTO 2.27 K/uL (1.00-4.80); LYMPHOCYTES PERCENT AUTO 26.2 % (24.0-44.0); MEAN CORPUSCULAR HEMOGLOBIN 32.1 pg (28.0-32.0); MEAN CORPUSCULAR HGB CONC 31.5 g/dL (32.0-36.0); MEAN CORPUSCULAR VOLUME 101.9 fL (83.0-99.0); MONOCYTES ABSOLUTE AUTO 0.76 K/uL (0.00-0.80); MONOCYTES PERCENT AUTO 8.8 % (0.0-8.0); NEUTROPHILS ABSOLUTE AUTO 5.05 K/uL (1.80-7.70); NEUTROPHILS PERCENT AUTO 58.4 % (41.0-71.0); NRBC ABSOLUTE 0.02 K/uL (0.00-0.02); NRBC PERCENT 0.2 /100WBC (0.0-0.2); PLATELET COUNT,PLT 232 K/uL (150-400); RED BLOOD CELL COUNT 2.12 M/uL (4.52-5.90); WHITE BLOOD CELL COUNT,WBC 8.65 K/uL (3.9-11.3)
[2023-10-18 17:16] LABS: A/G RATIO 0.5 (0.9-1.6); ALBUMIN 2.5 g/dL (3.4-5.0); BILIRUBIN TOTAL 0.6 mg/dL (0.2-1.0); CALCIUM 9.2 mg/dL (8.5-10.1); CREATININE 11.8 mg/dL (0.8-1.3); EST CRCL DRUG DOSING (CG) 8.35 mL/min; POTASSIUM,K 4.5 mmol/L (3.5-5.1); PROTEIN TOTAL,TP 7.4 g/dL (6.4-8.2)
[2023-10-19 00:52] VITALS: BP 114/74; PULSE 77
== END 2023-10-18 21:30 | disposition left against medical advice (07) ==
LOC: MW.ED 16:01
DX: D64.9 Anemia, unspecified (principal); I12.0 Hypertensive chronic kidney disease with stage 5 chronic kidney disease or end stage renal disease; N18.6 End stage renal disease; I25.10 Atherosclerotic heart disease of native coronary artery without angina pectoris; Z99.2 Dependence on renal dialysis; Z88.0 Allergy status to penicillin; Z91.030 Bee allergy status; Z79.899 Other long term (current) drug therapy; Z75.8 Other problems related to medical facilities and other health care
CPT/HCPCS: 36415; 36430; 80053; 85025; 86850; 86900; 86901; 86920; 99284; P9016; 99283

== ENCOUNTER 2023-11-01 14:48 | Emergency (ER) | payer MEDICARE, MEDICAID ==
[2023-11-01 15:29] LABS: BASOPHILS ABSOLUTE AUTO 0.06 K/uL (0.00-0.20); BASOPHILS PERCENT AUTO 0.5 % (0.0-1.0); EOSINOPHILS PERCENT AUTO 1.6 % (0.0-6.0); HEMATOCRIT 21.1 % (42.0-52.0); HEMOGLOBIN 6.7 g/dL (14.0-18.0); IMMATURE GRAN ABSOLUTE AUTO 0.14 K/uL (0.00-0.05); IMMATURE GRAN PERCENT AUTO 1.2 % (0.0-0.4); LYMPHOCYTES ABSOLUTE AUTO 2.12 K/uL (1.00-4.80); LYMPHOCYTES PERCENT AUTO 17.4 % (24.0-44.0); MEAN CORPUSCULAR HGB CONC 31.8 g/dL (32.0-36.0); MEAN CORPUSCULAR VOLUME 97.7 fL (83.0-99.0); MEAN PLATELET VOLUME 9.4 fL (9.4-12.4); MONOCYTES ABSOLUTE AUTO 0.74 K/uL (0.00-0.80); MONOCYTES PERCENT AUTO 6.1 % (0.0-8.0); NEUTROPHILS ABSOLUTE AUTO 8.91 K/uL (1.80-7.70); NEUTROPHILS PERCENT AUTO 73.2 % (41.0-71.0); PLATELET COUNT,PLT 200 K/uL (150-400); RED BLOOD CELL COUNT 2.16 M/uL (4.52-5.90); WHITE BLOOD CELL COUNT,WBC 12.17 K/uL (3.9-11.3)
[2023-11-01 16:03] LABS: A/G RATIO 0.6 (0.9-1.6); ALBUMIN 2.7 g/dL (3.4-5.0); BILIRUBIN TOTAL 0.5 mg/dL (0.2-1.0); CALCIUM 9.6 mg/dL (8.5-10.1); CARBON DIOXIDE,CO2 16.9 mmol/L (21.0-32.0); CREATININE 16.7 mg/dL (0.8-1.3); EST CRCL DRUG DOSING (CG) 5.35 mL/min; POTASSIUM,K 5.3 mmol/L (3.5-5.1); PROTEIN TOTAL,TP 7.6 g/dL (6.4-8.2)
[2023-11-01 21:54] VITALS: BP 118/85; PULSE 76
== END 2023-11-01 21:50 | disposition left against medical advice (07) ==
LOC: MW.ED 14:48
DX: N18.6 End stage renal disease (principal); D63.1 Anemia in chronic kidney disease; I10 Essential (primary) hypertension; Z88.0 Allergy status to penicillin; Z91.030 Bee allergy status; Z79.899 Other long term (current) drug therapy
CPT/HCPCS: 36415; 36430; 71045; 80053; 83880; 85025; 86850; 86900; 86901; 86920; 99284; P9016; 99283

== ENCOUNTER 2024-01-14 16:09 | Emergency (ER) | payer MEDICARE, MEDICAID ==
[2024-01-14 17:00] LABS: BASOPHILS ABSOLUTE AUTO 0.02 K/uL (0.00-0.20); BASOPHILS PERCENT AUTO 0.3 % (0.0-1.0); EOSINOPHILS ABSOLUTE AUTO 0.24 K/uL (0.00-0.45); EOSINOPHILS PERCENT AUTO 3.2 % (0.0-6.0); HEMATOCRIT 23.4 % (42.0-52.0); HEMOGLOBIN 7.8 g/dL (14.0-18.0); IMMATURE GRAN ABSOLUTE AUTO 0.05 K/uL (0.00-0.05); IMMATURE GRAN PERCENT AUTO 0.7 % (0.0-0.4); LYMPHOCYTES ABSOLUTE AUTO 0.71 K/uL (1.00-4.80); LYMPHOCYTES PERCENT AUTO 9.5 % (24.0-44.0); MEAN CORPUSCULAR HGB CONC 33.3 g/dL (32.0-36.0); MEAN PLATELET VOLUME 11.3 fL (9.4-12.4); MONOCYTES PERCENT AUTO 5.4 % (0.0-8.0); NEUTROPHILS ABSOLUTE AUTO 6.04 K/uL (1.80-7.70); NEUTROPHILS PERCENT AUTO 80.9 % (41.0-71.0); NRBC ABSOLUTE 0.02 K/uL (0.00-0.02); NRBC PERCENT 0.3 /100WBC (0.0-0.2); RED BLOOD CELL COUNT 2.69 M/uL (4.52-5.90); WHITE BLOOD CELL COUNT,WBC 7.46 K/uL (3.9-11.3)
[2024-01-14] MEDS: Morphine 4 MG/ML Syringe IVPUSH STA (17:07)
[2024-01-14] MEDS: Ondansetron 4 MG/2 ML SDV IVPUSH STA (17:07)
[2024-01-14 17:17] LABS: INR 1.21 (0.86-1.11)
[2024-01-14 17:27] LABS: PLATELET COUNT,PLT 77 K/uL (150-400)
[2024-01-14 17:28] LABS: A/G RATIO 0.6 (0.9-1.6); ALBUMIN 2.8 g/dL (3.4-5.0); BILIRUBIN TOTAL 1.4 mg/dL (0.2-1.0); CALCIUM 8.8 mg/dL (8.5-10.1); CARBON DIOXIDE,CO2 28.3 mmol/L (21.0-32.0); CREATININE 6.1 mg/dL (0.8-1.3); EST CRCL DRUG DOSING (CG) 16.45 mL/min; POTASSIUM,K 2.9 mmol/L (3.5-5.1); PROTEIN TOTAL,TP 7.8 g/dL (6.4-8.2)
[2024-01-14 17:32] LABS: MAGNESIUM 1.6 mg/dL (1.8-2.4)
[2024-01-14] MEDS: Magnesium Sulfate/Water Premix 2 GM in Premix Bag 1 BAG IV STA (18:41)
[2024-01-14] MEDS: Potassium Chloride 20 MEQ Tab.ER PO STA (18:42)
[2024-01-14] MEDS: Nitroglycerin 0.4 MG Tab.SL SL STA (19:46)
[2024-01-14] MEDS: Aspirin 81 MG Tab.Chew PO STA (20:47)
[2024-01-14 21:03] VITALS: BP 139/97; PULSE 92
== END 2024-01-14 21:01 | disposition left against medical advice (07) ==
LOC: MW.ED 16:09
DX: I20.0 Unstable angina (principal); E87.6 Hypokalemia; E83.42 Hypomagnesemia; R79.89 Other specified abnormal findings of blood chemistry; D69.6 Thrombocytopenia, unspecified; I12.0 Hypertensive chronic kidney disease with stage 5 chronic kidney disease or end stage renal disease; N18.6 End stage renal disease; Z79.899 Other long term (current) drug therapy; Z88.0 Allergy status to penicillin; Z91.030 Bee allergy status; Z99.2 Dependence on renal dialysis
CPT/HCPCS: 36415; 71045; 80053; 83735; 84484; 85025; 85610; 86850; 86900; 86901; 93005; 96365; 96375; 99285; A9270; J2270; J2405; J3475

== ENCOUNTER 2024-02-08 23:31 | Emergency (ER) | payer MEDICARE, MEDICAID ==
[2024-02-08] MEDS ORDERED: Sodium Chloride 0.9% 10 ML Syringe FLUSH PRN (23:33)
[2024-02-08 23:44] LABS: HEMATOCRIT 26.8 % (42.0-52.0); HEMOGLOBIN 8.6 g/dL (14.0-18.0); MEAN CORPUSCULAR HEMOGLOBIN 29.5 pg (28.0-32.0); MEAN CORPUSCULAR HGB CONC 32.1 g/dL (32.0-36.0); MEAN CORPUSCULAR VOLUME 91.8 fL (83.0-99.0); MEAN PLATELET VOLUME 11.1 fL (9.4-12.4); NRBC ABSOLUTE 0.34 K/uL (0.00-0.02); NRBC PERCENT 1.2 /100WBC (0.0-0.2); PLATELET COUNT,PLT 116 K/uL (150-400); RED BLOOD CELL COUNT 2.92 M/uL (4.52-5.90); WHITE BLOOD CELL COUNT,WBC 29.26 K/uL (3.9-11.3)
[2024-02-09 00:33] LABS: A/G RATIO 0.4 (0.9-1.6); ACETAMINOPHEN 13.1 ug/mL; ALANINE AMINOTRANSFERASE,ALT 75 IU/L (14-63); ALBUMIN 2.1 g/dL (3.4-5.0); ALKALINE PHOSPHATASE 308 U/L (46-116); ASPARTATE AMNIOTRANSFERASE,AST 153 IU/L (15-37); BILIRUBIN TOTAL 1.4 mg/dL (0.2-1.0); BLOOD UREA NITROGEN,BUN 130 mg/dL (7.0-18.0); C-REACTIVE PROTEIN 23.34 mg/dL (<0.3); CALCIUM 9.1 mg/dL (8.5-10.1); CARBON DIOXIDE,CO2 10.4 mmol/L (21.0-32.0); CHLORIDE,CL 92 mmol/L (98-107); CREATININE 18.4 mg/dL (0.8-1.3); GLUCOSE RANDOM 101 mg/dL (74-106); MAGNESIUM 2.2 mg/dL (1.8-2.4); PROTEIN TOTAL,TP 7.6 g/dL (6.4-8.2); SODIUM,NA 134 mmol/L (136-148)
[2024-02-09 00:53] LABS: LYMPHOCYTES ABSOLUTE MAN 2.05 K/uL (1.00-4.80); LYMPHOCYTES PERCENT MAN 7 % (24-44); MONOCYTES ABSOLUTE MAN 0.88 K/uL (0.00-0.80); MONOCYTES PERCENT MAN 3 % (0-8); SEG NEUTROPHILS ABSOLUTE MAN 26.33 K/uL (1.80-7.70); SEG NEUTROPHILS PERCENT MAN 90 % (41-71)
[2024-02-09 01:07] LABS: ESTIMATED GFR 3 mL/min (>60); PHOSPHORUS 10.3 mg/dL (2.6-4.7)
[2024-02-09 01:09] LABS: ETHANOL BLOOD MEDICAL < 3.0 mg/dL; LIPASE 745 U/L (16-77)
[2024-02-09] MEDS ORDERED: cefTRIAXone 2 GM in Sodium Chloride 0.9% 50 ML IV ONE (01:47)
[2024-02-09] MEDS: Aspirin 81 MG Tab.Chew PO ONE (01:49)
[2024-02-09] MEDS: Morphine 4 MG/ML Syringe IVPUSH ONE ×2 (01:54→06:09)
[2024-02-09] MEDS: Ondansetron 4 MG/2 ML SDV IVPUSH ONE (01:56)
[2024-02-09] MEDS: Pantoprazole 40 MG in Sodium Chloride 0.9% 10 ML IVPUSH ONE (02:01)
[2024-02-09] MEDS: Clindamycin Phosphate in D5W 900 MG in Premix Bag 1 BAG IV ONE (02:40)
[2024-02-09 03:29] LABS: PRO B-TYPE NATRIUR PEPT,BNPPRO 481187 pg/mL (0-125)
[2024-02-09 05:10] VITALS: BP 115/89; PULSE 76
== END 2024-02-09 08:02 ==
LOC: MW.ED 23:31
DX: I12.0 Hypertensive chronic kidney disease with stage 5 chronic kidney disease or end stage renal disease (principal); N18.6 End stage renal disease; K85.90 Acute pancreatitis without necrosis or infection, unspecified; L03.116 Cellulitis of left lower limb; E87.70 Fluid overload, unspecified; N19 Unspecified kidney failure; K59.00 Constipation, unspecified; R79.89 Other specified abnormal findings of blood chemistry; R18.8 Other ascites; Z88.0 Allergy status to penicillin; Z91.030 Bee allergy status; Z79.899 Other long term (current) drug therapy; Z99.2 Dependence on renal dialysis
CPT/HCPCS: 36415; 71045; 71250; 74176; 80053; 80143; 80179; 80307; 83605; 83690; 83735; 83880; 84100; 84484; 85025; 85652; 86140; 87040; 93005; 96365; 96375; 96376; 99285; A9270; J0736; J2270; J2405; J2470; J3490; 93010

== ENCOUNTER 2024-03-17 05:11 | Emergency (ER) | payer MEDICARE, MEDICAID ==
[2024-03-17] MEDS ORDERED: Sodium Chloride 0.9% 2.5 ML Syringe FLUSH PRN (05:28)
[2024-03-17] MEDS ORDERED: Sodium Chloride 0.9% 20 ML SDV IV PRN (05:28)
[2024-03-17] MEDS ORDERED: Sodium Chloride 0.9% 10 ML Syringe FLUSH PRN (05:28)
[2024-03-17 05:57] LABS: BASOPHILS PERCENT AUTO 0.6 % (0.0-1.0); EOSINOPHILS PERCENT AUTO 2.5 % (0.0-6.0); HEMATOCRIT 25.9 % (42.0-52.0); IMMATURE GRAN ABSOLUTE AUTO 0.08 K/uL (0.00-0.05); IMMATURE GRAN PERCENT AUTO 0.5 % (0.0-0.4); LYMPHOCYTES ABSOLUTE AUTO 2.49 K/uL (1.00-4.80); LYMPHOCYTES PERCENT AUTO 15.6 % (24.0-44.0); MEAN CORPUSCULAR HEMOGLOBIN 28.9 pg (28.0-32.0); MEAN CORPUSCULAR HGB CONC 30.9 g/dL (32.0-36.0); MEAN CORPUSCULAR VOLUME 93.5 fL (83.0-99.0); MEAN PLATELET VOLUME 10.6 fL (9.4-12.4); MONOCYTES ABSOLUTE AUTO 0.94 K/uL (0.00-0.80); MONOCYTES PERCENT AUTO 5.9 % (0.0-8.0); NEUTROPHILS ABSOLUTE AUTO 11.98 K/uL (1.80-7.70); NEUTROPHILS PERCENT AUTO 74.9 % (41.0-71.0); NRBC ABSOLUTE 0.03 K/uL (0.00-0.02); NRBC PERCENT 0.2 /100WBC (0.0-0.2); PLATELET COUNT,PLT 330 K/uL (150-400); RED BLOOD CELL COUNT 2.77 M/uL (4.52-5.90); WHITE BLOOD CELL COUNT,WBC 15.99 K/uL (3.9-11.3)
[2024-03-17 06:09] LABS: A/G RATIO 0.3 (0.9-1.6); ALBUMIN 2.3 g/dL (3.4-5.0); BILIRUBIN TOTAL 0.7 mg/dL (0.2-1.0); CALCIUM 8.5 mg/dL (8.5-10.1); CARBON DIOXIDE,CO2 18.8 mmol/L (21.0-32.0); CREATININE 14.2 mg/dL (0.8-1.3); EST CRCL DRUG DOSING (CG) 6.5 mL/min; MAGNESIUM 2.2 mg/dL (1.8-2.4)
[2024-03-17] MEDS: Morphine 4 MG/ML Syringe IVPUSH ONE (06:58)
[2024-03-17 15:07] LABS: LACTIC ACID 2.6 mmol/L (0.4-2.0)
[2024-03-17] MEDS: Sodium Chloride 0.9% 500 ML IV STA ×2 (15:40→17:42)
[2024-03-17] MEDS: VANCOmycin 1.5 GM in Sodium Chloride 0.9% 250 ML IV ONE (17:01)
[2024-03-17] MEDS: metroNIDAZOLE/Normal Saline 500 MG in Premix Bag 1 BAG IV ONE (19:20)
[2024-03-17 19:39] VITALS: BP 127/89; PULSE 96
== END 2024-03-17 20:30 ==
LOC: MW.ED 05:11
DX: R11.2 Nausea with vomiting, unspecified (principal); R10.13 Epigastric pain; R00.0 Tachycardia, unspecified; M79.604 Pain in right leg; M79.605 Pain in left leg; R19.7 Diarrhea, unspecified; R74.02 Elevation of levels of lactic acid dehydrogenase [LDH]; D72.829 Elevated white blood cell count, unspecified; I10 Essential (primary) hypertension; F17.210 Nicotine dependence, cigarettes, uncomplicated; Z88.0 Allergy status to penicillin; Z91.030 Bee allergy status; Z79.899 Other long term (current) drug therapy
CPT/HCPCS: 36415; 71045; 74150; 80053; 83605; 83690; 83735; 85025; 87040; 87045; 87046; 87324; 87328; 87329; 87449; 87493; 87899; 93005; 96361; 96365; 96366; 96367; 96375; 99285; J1836; J2270; J3371; J7030; J7050

== ENCOUNTER 2024-04-23 17:39 | Emergency (ER) | payer MEDICARE, MEDICAID ==
[2024-04-23] MEDS: Acetaminophen/oxyCODONE 325-10 MG Tab PO ONE (18:46)
[2024-04-23 20:09] VITALS: BP 136/99; PULSE 101
== END 2024-04-23 20:08 | disposition home or self-care (01) ==
LOC: MW.ED 17:39
DX: S79.912A Unspecified injury of left hip, initial encounter (principal); I10 Essential (primary) hypertension; Z88.0 Allergy status to penicillin; Z91.030 Bee allergy status; Z79.899 Other long term (current) drug therapy; Z75.8 Other problems related to medical facilities and other health care; W00.0XXA Fall on same level due to ice and snow, initial encounter
CPT/HCPCS: 70450; 71045; 72192; 73700; 99284; A9270

== ENCOUNTER 2024-05-05 18:14 | Emergency (ER) | payer MEDICARE, MEDICAID ==
[~2024-05-05 18:14] MED LIST changes: -Acetaminophen/HYDROcodone 325-5 MG Tab PO PRN; +EPINEPHrine 1:10,000 1 MG/10 ML Syringe IVPUSH ONE; -Lactated Ringers 1,000 ML IV SCH; -ceFAZolin 2 GM in Premix Bag 1 BAG IV SCH
[2024-05-05] MEDS: EPINEPHrine 1:10,000 1 MG/10 ML Syringe IVPUSH ONE ×3 (18:14)
[2024-05-05] MEDS: Norepinephrine Bit/D5W Premix 250 ML ONE (18:17)
[2024-05-05] MEDS: propofoL 1,000 MG/100 ML 100 ML IV SCH ×2 (18:17→20:37)
[2024-05-05 18:24] LABS: BASOPHILS ABSOLUTE AUTO 0.02 K/uL (0.00-0.20); BASOPHILS PERCENT AUTO 0.2 % (0.0-1.0); EOSINOPHILS ABSOLUTE AUTO 0.54 K/uL (0.00-0.45); EOSINOPHILS PERCENT AUTO 5.2 % (0.0-6.0); HEMATOCRIT 26.1 % (42.0-52.0); HEMOGLOBIN 8.1 g/dL (14.0-18.0); IMMATURE GRAN ABSOLUTE AUTO 0.48 K/uL (0.00-0.05); IMMATURE GRAN PERCENT AUTO 4.6 % (0.0-0.4); LYMPHOCYTES ABSOLUTE AUTO 2.74 K/uL (1.00-4.80); LYMPHOCYTES PERCENT AUTO 26.3 % (24.0-44.0); MEAN CORPUSCULAR HEMOGLOBIN 26.6 pg (28.0-32.0); MEAN CORPUSCULAR VOLUME 85.9 fL (83.0-99.0); MEAN PLATELET VOLUME 9.9 fL (9.4-12.4); MONOCYTES PERCENT AUTO 2.9 % (0.0-8.0); NEUTROPHILS ABSOLUTE AUTO 6.32 K/uL (1.80-7.70); NEUTROPHILS PERCENT AUTO 60.8 % (41.0-71.0); NRBC ABSOLUTE 0.32 K/uL (0.00-0.02); NRBC PERCENT 3.1 /100WBC (0.0-0.2); PLATELET COUNT,PLT 84 K/uL (150-400); RED BLOOD CELL COUNT 3.04 M/uL (4.52-5.90)
[2024-05-05] MEDS: Norepinephrine Bit/D5W Premix 250 ML IV STA (18:24)
[2024-05-05 18:33] LABS: PH,VENOUS 7.26 (7.31-7.41)
[2024-05-05 18:52] LABS: ALBUMIN 2.8 g/dL (3.4-5.0); BILIRUBIN TOTAL 1.1 mg/dL (0.2-1.0); CALCIUM 8.7 mg/dL (8.5-10.1); CARBON DIOXIDE,CO2 18.3 mmol/L (21.0-32.0); CREATININE 5.3 mg/dL (0.8-1.3); EST CRCL DRUG DOSING (CG) 17.41 mL/min; POTASSIUM,K 4.2 mmol/L (3.5-5.1); PROTEIN TOTAL,TP 7.9 g/dL (6.4-8.2)
[2024-05-05 18:53] LABS: INR 1.53 (0.86-1.11); PTT,PARTIAL THROMBOPLSTIN TIME 35.6 SEC (23.9-30.7)
[2024-05-05 18:54] LABS: A/G RATIO 0.6 (0.9-1.6)
[2024-05-05 18:57] LABS: LACTIC ACID 12.6 mmol/L (0.4-2.0); MAGNESIUM 2.3 mg/dL (1.8-2.4)
[2024-05-05 18:58] LABS: ETHANOL BLOOD MEDICAL < 3.0 mg/dL
[2024-05-05 19:34] LABS: BICARBONATE,ARTERIAL 22 mEq/L (22-26); PCO2 ARTERIAL 43 mmHG (35-45); PO2 ARTERIAL 32 mmHG (80-105)
[2024-05-05] MEDS: propofoL 1,000 MG/100 ML 100 ML ONE (20:38)
== END 2024-05-05 22:01 | disposition expired ==
LOC: MW.ED 18:14
DX: I46.9 Cardiac arrest, cause unspecified (principal); I10 Essential (primary) hypertension; I48.91 Unspecified atrial fibrillation; Z79.899 Other long term (current) drug therapy; Z88.0 Allergy status to penicillin; Z91.030 Bee allergy status
CPT/HCPCS: 31500; 36415; 36600; 36680; 51702; 71045; 80053; 80307; 82803; 83605; 83690; 83735; 84484; 85025; 85610; 85730; 87040; 92950; 93005; 96365; 96366; 96368; 99285; J2704; 93010; 99291